=== PATIENT | female | born 1960 | race Caucasian/White ===

== ENCOUNTER 2017-04-23 08:30 | Inpatient (IN) ==
[2017-04-18 15:15] LABS: Blood Urea Nitrogen 19 mg/dl (6-20)
[2017-04-18 15:26] LABS: Basophils # (Auto) 0.1 K/mcL (0.0-0.3); Basophils % (Auto) 0.4 % (0.0-2.0); Eosinophils # (Auto) 0.5 K/mcL (0.0-0.7); Eosinophils % (Auto) 4.2 % (0.0-7.0); Granulocytes % (Auto) 68.2 % (38.0-78.0); Lymphocytes # (Auto) 2.7 K/mcL (1.5-4.8); Lymphocytes % (Auto) 21.2 % (15.5-49.0); Mean Cell Volume 86.1 fL (80.0-100.0); Mean Corpuscular HGB Conc 33.4 g/dL (31.0-36.0); Mean Corpuscular Hemoglobin 28.7 pg (26.0-34.0); Monocytes # (Auto) 0.8 K/mcL (0.1-0.9); RBC 4.48 M/mcL (4.00-5.20); Red Cell Distribution Width 15.2 % (11.5-14.5)
[2017-04-18 15:40] LABS: Appearance,Urine CLEAR; Bilirubin,Urine NEG (NEG); Color,Urine YELLOW; Glucose,Urine (UA) NEGATIVE (NEG); Leukocyte Esterase,Urine NEG /uL (NEG); Nitrate,Urine NEG (NEG); Protein,Urine NEG (NEG); Specific Gravity,Urine 1.012 (1.000-1.035); Urine Blood NEG mg/dL (<0.03)
[~2017-04-23 08:30] MED LIST: KETOROLAC 30 MG, ROPIVACAINE HCL/PF 49.5 ML, EPINEPHrine 0.5 MG, 0.9 % SODIUM CHLORIDE ... IJ ONE; PREGABALIN 75 MG CAPSULE PO SCH; ceFAZolin 1 GM VIAL IV SCH; oxyCODONE 10 MG TAB.ER.12H PO SCH
[2017-04-23 11:37] LABS: C-Reactive Protein 0.3 mg/dl (0.0-0.8)
[2017-04-23] MEDS ORDERED: IPRATROPIUM/ALBUTEROL 3 ML AMPUL.NEB NEB ONE ×2 (13:26→13:47)
[2017-04-23] MEDS ORDERED: KETOROLAC 30 MG, ROPIVACAINE HCL/PF 49.5 ML, EPINEPHrine 0.5 MG, 0.9 % SODIUM CHLORIDE ... IJ ONE (14:04)
[2017-04-23] MEDS ORDERED: ROPIVACAINE HCL/PF 20 ML VIAL IJ ONE (14:25)
[2017-04-23] MEDS ORDERED: LIDOCAINE HCL/PF 100 MG/5 ML SYRINGE IV ONE (14:25)
[2017-04-23] MEDS ORDERED: ONDANSETRON 4 MG/2 ML VIAL IV ONE (14:25)
[2017-04-23] MEDS ORDERED: TRANEXAMIC ACID 1,000 MG/10 ML VIAL IV ONE (14:25)
[2017-04-23] MEDS ORDERED: DEXAMETHASONE 10 MG/ML VIAL IV ONE (14:25)
[2017-04-23] MEDS ORDERED: PHENYLEPHRINE 10 MG/ML VIAL IV ONE (14:25)
[2017-04-23] MEDS ORDERED: MIDAZOLAM 2 MG/2 ML VIAL IV ONE (14:25)
[2017-04-23] MEDS ORDERED: PROPOFOL 200 MG/20 ML VIAL IV ONE (14:25)
[2017-04-23] MEDS ORDERED: diphenhydrAMINE 50 MG/ML VIAL IV PRN (16:04)
[2017-04-23] MEDS ORDERED: ACETAMINOPHEN 1,000 MG/100 ML BOTTLE IV ONE (16:04)
[2017-04-23] MEDS ORDERED: IPRATROPIUM/ALBUTEROL 3 ML AMPUL.NEB NEB PRN ×2 (16:04→16:17)
[2017-04-23] MEDS ORDERED: fentaNYL 100 MCG/2 ML VIAL IV PRN (16:04)
[2017-04-23] MEDS ORDERED: MEPERIDINE 50 MG/ML SYRINGE IM PRN (16:04)
[2017-04-23] MEDS ORDERED: PROMETHAZINE 25 MG/ML VIAL IV PRN (16:04)
[2017-04-23] MEDS ORDERED: BENZOCAINE/MENTHOL 1 LOZENGE PO PRN ×2 (16:04→16:12)
[2017-04-23] MEDS ORDERED: ONDANSETRON 4 MG/2 ML VIAL IV PRN ×2 (16:04→16:12)
[2017-04-23] MEDS ORDERED: PROMETHAZINE 25 MG/ML VIAL IM PRN (16:04)
[2017-04-23] MEDS ORDERED: NALOXONE HCL 0.4 MG/ML VIAL IV PRN (16:04)
[2017-04-23] MEDS ORDERED: METHOCARBAMOL 1,000 MG/10 ML VIAL IV PRN (16:04)
[2017-04-23] MEDS ORDERED: MEPERIDINE 25 MG/ML SYRINGE IV PRN (16:04)
[2017-04-23] MEDS ORDERED: FLUMAZENIL 0.1 MG/ML ML IV PRN (16:04)
[2017-04-23] MEDS ORDERED: LACTATED RINGERS 250 ML IV PRN (16:04)
[2017-04-23] MEDS ORDERED: ePHEDrine 50 MG/ML AMPUL IV PRN (16:04)
[2017-04-23] MEDS ORDERED: HYDROmorphone 2 MG/ML SYRINGE IV PRN (16:12)
[2017-04-23] MEDS ORDERED: POLYETHYLENE GLYCOL 3350 17 GM PACKET PO PRN (16:12)
[2017-04-23] MEDS ORDERED: ACETAMINOPHEN 325 MG TABLET PO PRN (16:12)
[2017-04-23] MEDS ORDERED: BISACODYL 10 MG SUPP.RECT PR PRN (16:12)
[2017-04-23] MEDS ORDERED: MAGNESIUM HYDROXIDE 30 ML ORAL.SUSP PO PRN (16:12)
[2017-04-23] MEDS ORDERED: FLEETS ADULT ENEMA PR PRN (16:12)
[2017-04-23] MEDS ORDERED: TRANEXAMIC ACID 1,000 MG/10 ML VIAL IV SCH (16:12)
--- NOTE | 2017-04-23 16:12 | Brief Operative Note ---
Date of procedure: 04/23/17 Pre-op diagnosis: Left knee loose tibial baseplate Post-op diagnosis: same (plus instability) Procedure: Revision Left total knee arthroplasty, tibial component only Grafts/Implants: Yes (2 tibia, 11 x 120 stem, 16 CS insert) Anesthesia: spinal, GLMA Findings: midflexion instability, partial loosening of tibia Complications: none Surgeon: Nazario Carter Backup Administrator: Emil Abreu Estimated blood loss (cc): 30 Specimens Removed/Pathology: other (c&s x 2, rapid frozen) Condition: stable Disposition: PACU
[2017-04-23] MEDS ORDERED: LACTATED RINGERS 1,000 ML IV SCH (16:15)
[2017-04-23] MEDS ORDERED: ALBUTEROL SULFATE 1 PUFF INHALER INH PRN (16:17)
[2017-04-23] MEDS ORDERED: POLYVINYL ALCOHOL OPHTH DROPS 15ML BOTTLE OU PRN (16:31)
[2017-04-23] MEDS: 0.9 % SODIUM CHLORIDE 1,000 ML IV SCH (16:47)
--- NOTE | 2017-04-23 17:15 | XRay Report ---
CLINICAL INFORMATION: Revision of left total knee arthroplasty TECHNIQUE: AP, lateral, patellar views COMPARISON: Previous examination dated 04/10/2016 FINDINGS: Status post revision of left total knee arthroplasty. Tibial complements has been revised denies a longer stem. Alignment is anatomic. IMPRESSION: Status post revision of left total knee arthroplasty. Interpreted and Authenticated by: Spencer Yanes 04/23/17
[2017-04-23] MEDS ORDERED: SIMETHICONE 80 MG TAB.CHEW CHEWED PRN (18:00)
[2017-04-23] MEDS: KETOROLAC 30 MG/ML VIAL IV SCH ×2 (18:58→23:34)
[2017-04-23] MEDS ORDERED: PRAMIPEXOLE 1 MG TABLET PO PRN (21:00)
[2017-04-23] MEDS: SPIRONOLACTONE 25 MG TABLET PO SCH (21:05)
[2017-04-23] MEDS: traZODone HCL 50 MG TABLET PO SCH (21:06)
[2017-04-23] MEDS: DOCUSATE SODIUM 100 MG CAPSULE PO SCH (21:06)
[2017-04-23] MEDS: SENNOSIDES 1 TABLET PO SCH (21:06)
[2017-04-23] MEDS: busPIRone 5 MG TABLET PO SCH (21:06)
[2017-04-23] MEDS: DICYCLOMINE 20 MG TABLET PO SCH (21:06)
[2017-04-23] MEDS: ASPIRIN 325 MG ENTERIC COATED TABLET PO SCH (21:07)
[2017-04-23] MEDS: DULoxetine 30 MG CAPSULE PO SCH (21:07)
[2017-04-23] MEDS: SIMVASTATIN 40 MG TABLET PO SCH (21:08)
[2017-04-23] MEDS: LITHIUM CARBONATE 150 MG CAPSULE PO SCH (21:08)
[2017-04-23] MEDS: Budesonide/Formoterol Fumarate [Symbicort 160-4.5 MCG] Inhaler INH SCH (21:09)
[2017-04-23] MEDS: 0.9 % SODIUM CHLORIDE 10 ML SYRINGE IV SCH (21:15)
[2017-04-23] MEDS: PANTOPRAZOLE 40 MG TABLET PO SCH (21:21)
[2017-04-23] MEDS: ceFAZolin 1 GM VIAL IV SCH (22:50)
[2017-04-24] MEDS: 0.9 % SODIUM CHLORIDE 1,000 ML IV SCH ×3 (00:42→21:36)
[2017-04-24] MEDS: oxyCODONE/APAP 5/325MG TABLET PO PRN ×6 (02:59→22:38)
[2017-04-24] MEDS: CYCLOBENZAPRINE 10 MG TABLET PO PRN (02:59)
[2017-04-24] MEDS: KETOROLAC 30 MG/ML VIAL IV SCH ×3 (05:33→17:29)
[2017-04-24] MEDS: 0.9 % SODIUM CHLORIDE 10 ML SYRINGE IV SCH ×3 (05:34→21:43)
[2017-04-24] MEDS: ceFAZolin 1 GM VIAL IV SCH (05:37)
[2017-04-24] MEDS: PANTOPRAZOLE 40 MG TABLET PO SCH ×2 (07:25→17:30)
[2017-04-24] MEDS: LEVOTHYROXINE 100 MCG TABLET PO SCH (07:25)
--- NOTE | 2017-04-24 07:51 | Discharge Summary ---
Providers - Providers Patient information: Note initiated : 04/24/17 at 7:46 am Service Date, if different from initiated Date: [] Patient: Saundra Cardona 57 y/o F admitted on 04/23/17 for Left Knee Removal of Tibial Component vs Total . Chief Complaint: [] Discharge date: 04/24/17 Hospitalization Hospital course: Pt underwent a L total knee arthroplasty revison for continued pain s/p TKA. she sepent one night on the floor for IV pain meds, IV abx and PT. Discharge diagnosis: L knee pain Exam - Exam Clean and dry: Yes Weight bearing status: as tolerated Ortho Discharge - TKA - Patient Instructions Diet: Regular Diet Activity: activity as tolerated, weight bearing as tolerated Total Knee Protocol: For Total Knee: Start ROM SNOW with stationary bike or rocking chair. Work on gaining full extension of knee. Posterior dislocation precautions provided. Hip abductor strengthening and gait training instructions provided. Apply Cryocuff as instructed. Dressing Care: May shower in 2 days Patient Education: Revision Total Joint Arthroplasty (DC) Additional Instructions: Discharge Instructions: Do the exercises at home that physical therapy gave you. You are scheduled to start physical therapy at [facility] ([phone]) on Apr. Take your prescription, photo ID, insurance cards, and current medication list with you to your first physical therapy appointment. Take your prescription to bead picker any medication or equipment (such as walker, crutches, toilet riser or C.P.M.) Wear comfortable clothing for your physical therapy (please bring/wear shorts. Weight bearing as tolerated. You have the Aquacel Ag dressing, leave in place for 7 days then remove. If dressing becomes soiled (turns black), remove and use gauze 4x4 dressing and silvasorb ointment and change daily. Keep incision clean and dry. You may start showering on post op day #2. To avoid constipation while taking any narcotic pain medication, take an over the counter stool softener/laxative. Use your Cryocuff or ice packs as directed, on for 20 minutes at a time throughout the day. This and elevation will help with pain and swelling. Call your physician for fevers above 100.5 or pain not controlled by medication. Your prescriptions are with your discharge information. Some medications were electronically transmitted to your pharmacy of choice. - Follow Up Plan Follow Up Appointments: Nazario Carter MD [Physician] - 05/08/17 8:40 am Disposition: Home, Self-Care Prognosis: Good Rehab Potential: Good Overall status at discharge: patient is progressing back to baseline - Orders For Discharge Prescriptions: Aspirin 325 mg PO BID #30 tab HYDROcodone/ACETAMINOPHEN [[place] 10-325 Tablet] 1 - 2 each PO Q4 #90 tab Pending Studies Resuscitation Status Full Code Diet Regular Diet Start FriApr 23 Breakfast Aspirin (Ecotrin) 325 mg PO BID [facility] Last Admin: 04/23/17 21:07 Dose: 325 mg Buspirone HCl (Buspar) 15 mg PO BID [facility] Last Admin: 04/23/17 21:06 Dose: 15 mg Cyclobenzaprine HCl (Flexeril) 10 mg PO BIDP PRN PRN Reason: Spasms Last Admin: 04/24/17 02:59 Dose: 10 mg Dicyclomine HCl (Dicyclomine) 20 mg PO BID [facility] Last Admin: 04/23/17 21:06 Dose: 20 mg Docusate Sodium (Colace) 100 mg PO BID [facility] Last Admin: 04/23/17 21:06 Dose: 100 mg Duloxetine HCl (Cymbalta) 60 mg PO BID [facility] Last Admin: 04/23/17 21:07 Dose: 60 mg Hydromorphone HCl (Dilaudid) 0 mg IV Q2HP PRN PRN Reason: PAIN LEVEL > 6 Last Admin: 04/23/17 20:49 Dose: 0.5 mg Sodium Chloride (Sodium Chloride 0.9%) 1,000 mls @ 100 mls/hr IV .Q10H [facility] Last Admin: 04/24/17 00:42 Dose: 100 mls/hr Infusion: 04/24/17 00:42 Dose: 100 mls/hr Admin: 04/23/17 16:47 Dose: 100 mls/hr Ketorolac Tromethamine (Toradol) 30 mg IV Q6 [facility] Stop: 04/25/17 12:01 Last Admin: 04/24/17 05:33 Dose: 30 mg Admin: 04/23/17 23:34 Dose: 30 mg Admin: 04/23/17 18:58 Dose: 30 mg Levothyroxine Sodium (Synthroid) 200 mcg PO ACB [facility] Last Admin: 04/24/17 07:25 Dose: 200 mcg [place] Carbonate ([place] Carbonate) 600 mg PO [facility] Last Admin: 04/23/17 21:08 Dose: 600 mg Oxycodone/Acetaminophen (Percocet 5-325 Mg) 0 tab PO Q4HP PRN PRN Reason: PAIN LEVEL 3-6 Last Admin: 04/24/17 02:59 Dose: 2 tab [facility]oprazole [facility]) [facility] Last Admin: 04/24/17 07:25 Dose: 40 mg Admin: 04/23/17 21:21 Dose: 40 mg Budesonide/Formoterol Fumarate [Symbicort 160-4.5 Mcg] Inhaler 1 dose INH BID [facility] Last Admin: 04/23/17 21:09 Dose: Not Given Senna (Senokot) 2 tab PO [facility] Last Admin: 04/23/17 21:06 Dose: 2 tab Simvastatin (Zocor) 40 mg PO [facility] Last Admin: 04/23/17 21:08 Dose: 40 mg Sodium Chloride (Saline Flush) 10 ml IV Q8 [facility] Last Admin: 04/24/17 05:34 Dose: Not Given Admin: 04/23/17 21:15 Dose: Not Given Spironolactone (Aldactone) 25 mg PO [facility] Last Admin: 04/23/17 21:05 Dose: Not Given Trazodone HCl (Desyrel) 100 mg PO [facility] Last Admin: 04/23/17 21:06 Dose: 100 mg Shift Summary 04/24/17 04:47 Shift Summary by Yulia Masters&Brenton4. VSS, but weaning off supplemental O2 was unsuccessful. Patient is on 2L O2 via NC. Dressing in place to surgical site to left knee and is CDI. 18 gauge to LFA with NS at 100 ml/hr. Up with FWW and SBA. Had one episode of incontinence while block was still in effect, but since has been continent and up to bathroom to void. PVR was 36ml. Administered 2 tablets Percocet 5/325mg and 1 tablet Flexeril 10mg for pain and restless leg spasms at 0300. Will update at bedside. Initialized on 04/24/17 04:47 - END OF NOTE
[2017-04-24] MEDS: DULoxetine 30 MG CAPSULE PO SCH ×2 (08:27→20:11)
[2017-04-24] MEDS: ATENOLOL 50 MG TABLET PO SCH (08:28)
[2017-04-24] MEDS: MULTIVIT,THER IRON,CA,FA & MIN 1 TABLET PO SCH (08:28)
[2017-04-24] MEDS: ASPIRIN 325 MG ENTERIC COATED TABLET PO SCH ×2 (08:28→20:14)
[2017-04-24] MEDS: DICYCLOMINE 20 MG TABLET PO SCH ×2 (08:28→20:14)
[2017-04-24] MEDS: DOCUSATE SODIUM 100 MG CAPSULE PO SCH ×2 (08:28→20:14)
[2017-04-24] MEDS: LITHIUM CARBONATE 150 MG CAPSULE PO SCH ×2 (08:28→20:14)
[2017-04-24] MEDS: VITAMIN D3 5,000 UNIT CAPSULE PO SCH (08:28)
[2017-04-24] MEDS: busPIRone 5 MG TABLET PO SCH ×2 (08:28→20:12)
[2017-04-24] MEDS: COLESTIPOLL 1 GM TABLET PO SCH (08:30)
[2017-04-24] MEDS: Budesonide/Formoterol Fumarate [Symbicort 160-4.5 MCG] Inhaler INH SCH ×2 (08:31→20:17)
--- NOTE | 2017-04-24 09:06 | Operative Note ---
DATE OF OPERATION: 04/23/2017 PREOPERATIVE DIAGNOSIS: Painful left total knee arthroplasty with probable tibial component loosening. POSTOPERATIVE DIAGNOSES: 1. Painful left total knee arthroplasty with probable tibial component loosening. 2. Ligamentous laxity with mid flexion instability. PROCEDURE PERFORMED: Revision left total knee arthroplasty of the tibial component only removing her tibia and insert and placing a size 2 baseplate with an 11 mm 100 length stem and a 16 mm CS tibial insert. SURGEON: Nazario Carter M.D. CLIENT CONSULTANT: Emiliano Abreu PA-C. ANESTHESIA: Spinal plus general. DRAINS: None. SPECIMENS REMOVED: Tibial insert and tibial component, culture and sensitivity x2, as well as synovial tissue sent for rapid frozen. BLOOD LOSS: 30 mL. COMPLICATIONS: None. POSTOPERATIVE CONDITION: Stable. INDICATIONS FOR SURGERY: This is a 57-year-old female who approximately a year ago had undergone a total knee arthroplasty. She had initially done okay. However, after several months began having gradually worsening knee pain. Her radiographs showed what appeared to be radiolucency around the tibial component. Infection workup preoperatively had been negative. FINDINGS AT SURGERY: The synovial fluid looked normal. There was fairly severe ligamentous laxity, however, most notable on mid flexion. She had some loosening of the tibia around the medial and lateral sides. The femur was without evidence of loosening. Post implantation showed good stability and range of motion. PROCEDURE IN DETAIL: The patient had been seen preoperatively. Informed consent had been obtained after discussion of risks and benefits of surgery. Risks including, but not limited to, bleeding, possibly requiring transfusion; infection, possibly requiring implant removal, prolonged IV antibiotics; injury to nerves, blood vessels, and other surrounding structures; anesthetic risks; incomplete or no resolution of symptoms; stiffness; pain; instability; swelling; DVT and pulmonary embolus risks; and the possibility of needing further revision surgery. She understood these risks and wished to proceed. Correct operative site was marked in preoperative holding and patient received spinal anesthesia. She was then taken to the operating room and LMA general given. The left lower extremity was carefully prepped and draped in normal sterile fashion, and a time-out was performed verifying patient name, operative site, and plan. Her previous scar was used, and a midline incision was made with scalpel through skin and subcutaneous tissue. Irrisept was irrigated and then a medial parapatellar arthrotomy made. Two culture swabs were taken of the fluid. However, it grossly looked normal. Subperiosteal exposure was done of the anterior medial tibia, and we noted at this point that she had fairly gross laxity with drawer testing. We went ahead and removed retropatellar scar tissue and then removed her tibial insert. We closely inspected the femur. There was no evidence of loosening at the cement bone interface. We inspected the tibia, and along the medial edge there did appear to be some loosening of the tibia, although the central portion did not appear to be loose. Due to her radiograph and the findings medially, we felt it would be best to go ahead and remove the tibia, so a flexible osteotome was used around the tibia as much as possible and then we also hooked a tibial Slap hammer and were able to backslap the tibia off. Inspection did reveal intact fixation of the tibia centrally with what appeared to be some loosening medial and lateral. We then carefully removed cement. We reamed up to a size 11. We then did a freshening cut removing 2 or 3 mm of bone off the tibia. We then determined that 2 mm offset was needed to central the position of the tibial baseplate with the offset pushing the tibial base plate laterally. Once we had boss reamed and keel punched. We then placed the trial. We trialed a 13 insert. This seemed too loose. We went up to a 16 insert, and this gave us good stability and still good range of motion, so we went ahead and removed the implants. Definitive implants were opened and constructed. We irrigated the joint with Irrisept. After a minute we copiously pulse lavaged while antibiotic cement was mixed. Cement was placed around the tibial tray only, leaving the intramedullary glendy portion uncemented, and then this was impacted. Excess cement removed. A 16 trial insert was placed. The knee was taken into extension. Excess cement was removed, and we filled the joint with Irrisept. After several minutes we pulse lavaged until cement had fully hardened. We then opened a 16 CS insert and removed the trial insert. Irrisept was irrigated into the tray and then the insert was impacted. The final pulse lavage with saline was done and then the knee was placed in about 45 degrees of flexion. A #2 FiberWire interrupted [id number] was used around the superior quadrant of the patella, #1 Vicryl [id number] around the inferior quadrant, running #1 Vicryl for patellar tendon and quad tendon. Final Irrisept irrigation was done and after a minute final pulse lavage, and then 2-0 Monocryl used for subcutaneous and nory for skin. Xeroform and sterile dressing were applied. Tourniquet was released. The patient was awakened, extubated, and transferred to recovery in stable condition. BJB:margy Job ID: [id number] Doc ID: [id number] Nazario Carter MD
--- NOTE | 2017-04-24 13:28 | Surgical Pathology Report ---
HISTOLOGY SPECIMEN MICROSCOPIC DIAGNOSIS SYNOVIUM, LEFT KNEE POSTERIOR CAPSULE, BIOPSY: -- SYNOVIAL HYPERPLASIA WITH MILD FIBROSIS AND MINIMAL CHRONIC INFLAMMATION. -- NO SIGNIFICANT ACUTE INFLAMMATION IDENTIFIED. (RLF:sln) INTRAOPERATIVE CONSULTATION FROZEN SECTION DIAGNOSIS (Performed at [facility], [place], [place]) FSA - SYNOVIUM, LEFT KNEE POSTERIOR CAPSULE, BIOPSY: -- 0-1 NEUTROPHILS/hpf. (RLF:sln) CLINICAL HISTORY Pain in left knee, 1 year post total knee replacement. GROSS DESCRIPTION Received fresh for intraoperative consultation, labeled synovium from posterior capsule on the requisition and with the patient name on the container, is a segment of young-pink rubbery soft tissue measuring 2.2 x 1.2 x 0.8 cm. Frozen section is performed. [employer]cal Services Director sections in one cassette for frozen section control. (RLF:djf) Electronically Signed by: Judy Gaming M.D.
[2017-04-24] MEDS ORDERED: COLESTIPOLL 1 GM TABLET PO SCH (16:00)
[2017-04-24] MEDS: traZODone HCL 50 MG TABLET PO SCH (20:10)
[2017-04-24] MEDS: SPIRONOLACTONE 25 MG TABLET PO SCH (20:12)
[2017-04-24] MEDS: SENNOSIDES 1 TABLET PO SCH (20:13)
[2017-04-24] MEDS: SIMVASTATIN 40 MG TABLET PO SCH (20:16)
[2017-04-25] MEDS: KETOROLAC 30 MG/ML VIAL IV SCH ×3 (00:57→11:52)
[2017-04-25] MEDS: oxyCODONE/APAP 5/325MG TABLET PO PRN ×2 (03:34→09:31)
[2017-04-25] MEDS: CYCLOBENZAPRINE 10 MG TABLET PO PRN (03:35)
[2017-04-25] MEDS: 0.9 % SODIUM CHLORIDE 10 ML SYRINGE IV SCH (06:08)
[2017-04-25] MEDS: LEVOTHYROXINE 100 MCG TABLET PO SCH (09:34)
[2017-04-25] MEDS: PANTOPRAZOLE 40 MG TABLET PO SCH (09:34)
[2017-04-25] MEDS: 0.9 % SODIUM CHLORIDE 1,000 ML IV SCH (09:35)
[2017-04-25] MEDS: ATENOLOL 50 MG TABLET PO SCH (10:58)
[2017-04-25] MEDS: VITAMIN D3 5,000 UNIT CAPSULE PO SCH (10:58)
[2017-04-25] MEDS: DOCUSATE SODIUM 100 MG CAPSULE PO SCH (10:58)
[2017-04-25] MEDS: ASPIRIN 325 MG ENTERIC COATED TABLET PO SCH (10:58)
[2017-04-25] MEDS: busPIRone 5 MG TABLET PO SCH (10:59)
[2017-04-25] MEDS: DULoxetine 30 MG CAPSULE PO SCH (10:59)
[2017-04-25] MEDS: COLESTIPOLL 1 GM TABLET PO SCH (10:59)
[2017-04-25] MEDS: DICYCLOMINE 20 MG TABLET PO SCH (10:59)
[2017-04-25] MEDS: MULTIVIT,THER IRON,CA,FA & MIN 1 TABLET PO SCH (11:00)
[2017-04-25] MEDS: Budesonide/Formoterol Fumarate [Symbicort 160-4.5 MCG] Inhaler INH SCH (11:07)
[2017-04-25] MEDS: LITHIUM CARBONATE 150 MG CAPSULE PO SCH (11:07)
--- NOTE | 2017-04-25 11:51 | Orthopedic Progress Note ---
Orthopedics - Auxillary Note - Subjective Patient Information: Note initiated : 04/25/17 at 11:50 am Service Date, if different from initiated Date: [] Patient: Saundra Cardona 57 y/o F admitted on 04/23/17 for Left Knee Removal of Tibial Component vs Total . Chief Complaint: Mild to moderate pain. bandages c/d/i nvi-distal Vital Signs Temp Pulse Resp BP BP Pulse Ox 04/25/17 11:44 97.8 F 18 136/75 90 04/25/17 08:00 80 04/25/17 06:54 97 F 18 126/72 90 04/25/17 04:00 98.5 F 80 20 135/73 93 04/25/17 00:00 98.6 F 80 20 118/76 91 04/24/17 20:00 97.0 F 79 20 118/77 92 04/24/17 16:00 97.5 F 18 129/75 93 04/24/17 11:56 98.2 F 18 112/57 93 Intake and Output 04/24/17 04/25/17 04/25/17 21:59 05:59 13:59 Intake Total 400 / 400 800 / 800 320 / 320 Output Total 500 / 500 400 / 400 400 / 400 Balance -100 / -100 400 / 400 -80 / -80 Intake: Oral 400 / 400 800 / 800 320 / 320 Output: Void Amount 500 / 500 400 / 400 400 / 400 Other: Meal Dinner Breakfast Percent of Meal Consumed 100% 100% Feeding Ability Independent # Voids 2 1 Weight 232 lb Laboratory Results - last 24 hr 04/25/17 04:25 Hgb 10.3 L Hct 31.2 L s/p L [id number] discharge with Home Health today
[2017-04-27] MEDS ORDERED: ESTRADIOL TD SCH (09:00)
== END 2017-04-25 12:30 | disposition home or self-care (01) | DRG 467 ==
LOC: MEDSUR 09:57
PROVIDERS: ADMIT Orthopaedic Surgery; ATTEND Orthopaedic Surgery

== ENCOUNTER 2017-09-19 07:14 | Inpatient (IN) ==
[2017-09-19] MEDS ORDERED: IOPAMIDOL 100 ML BOTTLE IV ONE (07:15)
[2017-09-19] MEDS ORDERED: IPRATROPIUM/ALBUTEROL 3 ML AMPUL.NEB NEB ONE (07:33)
[2017-09-19] MEDS ORDERED: 0.9 % SODIUM CHLORIDE 1,000 ML IV ONE (07:33)
--- NOTE | 2017-09-19 07:38 | Emergency Department Note ---
General Adult HPI - General Chief complaint: Cold/Flu Symptoms Stated complaint: Cold/flu Time Seen by Provider: 09/19/17 07:22 Source: patient Mode of arrival: ambulatory Limitations: no limitations - History of Present Illness HPI Narrative: 57-year-old female with shortness of breath since yesterday. She notes having a history of COPD and asthma. No fever but she is chilled and diaphoretic. No nausea vomiting or diarrhea. She had an episode of hemoptysis yesterday as well which has not continued to today. Denies TB exposure. - Related Data Home Medications Medication Instructions Recorded Confirmed Albuterol Sulfate [Ventolin] 1 puff INH Q4HP PRN 03/10/17 04/18/17 Atenolol [Tenormin] 50 mg PO DAILY 03/10/17 04/23/17 Budesonide/Formoterol Fumarate 1 puff INH BID 03/10/17 04/18/17 [Symbicort 160-4.5 Mcg Inhaler] Colestipoll [Colestid] 3 gm PO DAILY@1600 03/10/17 04/23/17 Colestipoll [Colestid] 4 gm PO DAILY 03/10/17 04/23/17 Cyclobenzaprine [Flexeril] 10 mg PO BIDP PRN 03/10/17 04/23/17 DULoxetine HCL [Cymbalta] 60 mg PO BID 03/10/17 04/23/17 Dicyclomine 20 mg PO BID 03/10/17 04/23/17 Estradiol [Alina] 1 each TD STEWART@0900 03/10/17 04/23/17 Etodolac [Lodine] 400 mg PO BID 03/10/17 04/23/17 [place] Carbonate [Lithobid] 300 mg PO DAILY 03/10/17 04/23/17 [place] Carbonate [Lithobid] 600 mg PO HS 03/10/17 04/23/17 Polyvinyl Alcohol/Povidone/Pf 1 drop OU DAILYP PRN 03/10/17 04/23/17 [Refresh Classic Eye Drops] Pramipexole [Mirapex] 0.5 mg PO HSP PRN 03/10/17 04/23/17 Rosuvastatin Calcium [Crestor] 40 mg PO HS 03/10/17 04/23/17 busPIRone [Buspar] 15 mg PO BID 03/10/17 04/23/17 Pantoprazole [Protonix] 40 mg PO BID 03/15/17 04/23/17 Ipratropium/Albuterol [Duoneb] 3 ml NEB TIDP PRN 04/18/17 04/18/17 Levothyroxine [Synthroid] 200 mcg PO ACB 04/18/17 04/23/17 Multivit,Ther Iron,Ca,FA & Min 1 tab PO DAILY 04/18/17 04/23/17 [Multivitamin W/Minerals] Simethicone [Anti-Gas] 180 mg PO BID PRN 04/18/17 04/23/17 Spironolactone [Aldactone] 25 mg PO HS 04/18/17 04/23/17 Vitamin D3 5,000 unit PO DAILY 04/18/17 04/18/17 traZODone HCL [Trazodone HCl] 100 mg PO HS 04/18/17 04/18/17 Previous Rx's Medication Instructions Recorded Aspirin 325 mg PO BID #30 tab 04/24/17 traMADol [Ultram] 50 - 100 mg PO Q4-6HP PRN #100 tab 04/25/17 traMADol [Ultram] 50 - 100 mg PO Q4-6HP PRN #20 tab 08/16/17 Allergies Allergy/AdvReac Type Severity Reaction Status Date / Time fexofenadine [From KAREL] Allergy Intermediate RASH Verified 09/19/17 07:15 rofecoxib [From VIOXX] Allergy Intermediate RASH Verified 09/19/17 07:15 NARCOTICS AdvReac Mild HALLUCINATE Uncoded 04/04/16 11:34 Review of Systems All systems ED: reviewed and negative except as stated. Past Medical History - Past Medical History Attestation: Yes: The following information was validated with the patient. Medical history: Reports: asthma, COPD, GERD, hyperlipidemia, hypertension, hypothyroidism, obesity, other (Pneumonia.). Denies: DM, myocardial infarction Psychiatric history: Reports: anxiety, depression Surgical history ED: Reports: appendectomy, cholecystectomy, herniorrhaphy, hysterectomy, knee replacement, orthopedic, other (rotator cuff), sinus surgery - Social History smoking status: Former smoker Alcohol use: Reports: Rarely Drug use: Reports: none Physical Exam Overweight female in some distress secondary to shortness of breath. Diaphoretic. Normocephalic atraumatic. Conjunctive are clear sclerae nonicteric. No nasal discharge or congestion. Oropharynx pink and moist. Neck is supple without lymphadenopathy thyromegaly. Heart is regular rate and rhythm no murmur appreciated. Lungs are clear to auscultation bilaterally with end expiratory wheezes and rhonchi. No rales. Abdomen soft nontender nondistended. +1 pedal edema bilaterally. Alert oriented Limitations: no limitations Course Vital Signs Temperature 97.2 F 09/19/17 07:15 Pulse Rate 96 H 09/19/17 07:15 Respiratory Rate 22 09/19/17 07:15 Blood Pressure 156/93 09/19/17 07:15 Pulse Oximetry (%) 100 09/19/17 07:15 Temperature 97.2 F 09/19/17 07:15 Pulse Rate 82 09/19/17 09:10 Respiratory Rate 18 09/19/17 09:10 Blood Pressure 110/72 09/19/17 09:03 Pulse Oximetry (%) 100 09/19/17 09:10 Medical Decision Making - Medical Records Medical records reviewed: Yes I reviewed the patient's medical records. - Lab Data Lab results reviewed: Yes I reviewed the patient's lab results. Result diagrams: 09/19/17 07:45 09/19/17 07:45 Lab Results 09/19/17 09/19/17 09/19/17 Range/Units 07:45 07:45 07:45 WBC 15.9 H (4.5-11.0) K/mcL RBC 4.28 (4.00-5.20) M/mcL Hgb 11.9 L (12.0-15.0) g/dL Hct 35.4 L (36.0-48.0) % POC Hct 34.0 L (36.0-48.0) % MCV 82.7 (80.0-100.0) fL MCH 27.7 (26.0-34.0) pg MCHC 33.5 (31.0-36.0) g/dL RDW 16.1 H (11.5-14.5) % Plt Count 274 (140-440) K/mcL MPV 7.3 L (7.4-10.4) fL Gran % 76.5 (38.0-78.0) % Lymph % (Auto) 13.8 L (15.5-49.0) % Pender % (Auto) 7.3 (1.0-12.0) % Eos % (Auto) 2.2 (0.0-7.0) % Baso % (Auto) 0.2 (0.0-2.0) % Gran # 12.2 H (1.8-8.0) K/mcL Lymph # (Auto) 2.2 (1.5-4.8) K/mcL Pender # (Auto) 1.2 H (0.1-0.9) K/mcL Eos # (Auto) 0.3 (0.0-0.7) K/mcL Baso # (Auto) 0 (0.0-0.3) K/mcL VBG Lactic Acid 0.9 (0.5-2.2) mmol/L POC Sodium 140 (133-145) mmol/L Sodium 141 (133-145) mmol/L POC Potassium 3.4 (3.3-5.1) mmol/L Potassium 3.5 (3.3-5.1) mmol/L POC Chloride 102 (96-108) mmol/L Chloride 102 (96-108) mmol/L Carbon Dioxide 28 (22-30) mmol/L POC Total CO2 28 (22-30) mmol/L Anion Gap 11.0 (8-16) POC BUN 16 (6-20) mg/dl BUN 15 (6-20) mg/dl Creatinine 0.7 (0.6-1.1) mg/dl POC Creatinine 0.7 (0.6-1.1) mg/dl GFR Calculation 95 Glucose 120 H (70-105) mg/dL POC Glucose 119 H (70-105) mg/dL Calcium 9.0 (8.6-10.4) mg/dl POC WB Ioniz Calcium 1.15 L (1.16-1.32) mmol/L Total Bilirubin 0.5 (0.0-1.0) mg/dL AST 25 (0-37) U/l ALT 32 (0-40) U/l Alkaline Phosphatase 133 H (39-117) U/L Troponin T (0-0.03) ng/ml NT-Pro-B Natriuret Pep 94.5 (0-125) pg/ml Total Protein 7.0 (5.9-8.4) gm/dL Albumin 4.1 (3.2-5.2) gm/dL Globulin 2.9 (2.2-3.7) gm/dL Albumin/Globulin Ratio 1.4 (1.0-2.3) Urine Color Urine Appearance Urine pH (5.0-9.0) Ur Specific [place] (1.000-1.035) Urine Protein (NEG) mg/dL Urine Glucose (UA) (NEG) mg/dL Urine Ketones (NEG) mg/dL Urine Occult Blood (<0.03) mg/dL Urine Nitrate (NEG) Urine Bilirubin (NEG) mg/dL Urine Urobilinogen (NEG) mg/dL Ur Leukocyte Esterase (NEG) /uL Urine RBC (0-1) /hpf Urine WBC (0-4) /hpf Ur Squamous Epith Cells (0-4) /hpf Urine Bacteria (0) /hpf Urine Mucus (0) /hpf Ur Culture Indicated? Influenza A (Rapid) Influenza B (Rapid) 09/19/17 09/19/17 09/19/17 Range/Units 07:45 07:50 08:37 WBC (4.5-11.0) K/mcL RBC (4.00-5.20) M/mcL Hgb (12.0-15.0) g/dL Hct (36.0-48.0) % POC Hct (36.0-48.0) % MCV (80.0-100.0) fL MCH (26.0-34.0) pg MCHC (31.0-36.0) g/dL RDW (11.5-14.5) % Plt Count (140-440) K/mcL MPV (7.4-10.4) fL Gran % (38.0-78.0) % Lymph % (Auto) (15.5-49.0) % Pender % (Auto) (1.0-12.0) % Eos % (Auto) (0.0-7.0) % Baso % (Auto) (0.0-2.0) % Gran # (1.8-8.0) K/mcL Lymph # (Auto) (1.5-4.8) K/mcL Pender # (Auto) (0.1-0.9) K/mcL Eos # (Auto) (0.0-0.7) K/mcL Baso # (Auto) (0.0-0.3) K/mcL VBG Lactic Acid (0.5-2.2) mmol/L POC Sodium (133-145) mmol/L Sodium (133-145) mmol/L POC Potassium (3.3-5.1) mmol/L Potassium (3.3-5.1) mmol/L POC Chloride (96-108) mmol/L Chloride (96-108) mmol/L Carbon Dioxide (22-30) mmol/L POC Total CO2 (22-30) mmol/L Anion Gap (8-16) POC BUN (6-20) mg/dl BUN (6-20) mg/dl Creatinine (0.6-1.1) mg/dl POC Creatinine (0.6-1.1) mg/dl GFR Calculation Glucose (70-105) mg/dL POC Glucose (70-105) mg/dL Calcium (8.6-10.4) mg/dl POC WB Ioniz Calcium (1.16-1.32) mmol/L Total Bilirubin (0.0-1.0) mg/dL AST (0-37) U/l ALT (0-40) U/l Alkaline Phosphatase (39-117) U/L Troponin T < 0.01 (0-0.03) ng/ml NT-Pro-B Natriuret Pep (0-125) pg/ml Total Protein (5.9-8.4) gm/dL Albumin (3.2-5.2) gm/dL Globulin (2.2-3.7) gm/dL Albumin/Globulin Ratio (1.0-2.3) Urine Color Yellow Urine Appearance Hazy Urine pH 6.0 (5.0-9.0) Ur Specific [place] 1.020 (1.000-1.035) Urine Protein Neg (NEG) mg/dL Urine Glucose (UA) Negative (NEG) mg/dL Urine Ketones Neg (NEG) mg/dL Urine Occult Blood Neg (<0.03) mg/dL Urine Nitrate Neg (NEG) Urine Bilirubin Neg (NEG) mg/dL Urine Urobilinogen Neg (NEG) mg/dL Ur Leukocyte Esterase 25 A (NEG) /uL Urine RBC 1 (0-1) /hpf Urine WBC 4 (0-4) /hpf Ur Squamous Epith Cells 7 H (0-4) /hpf Urine Bacteria 0 (0) /hpf Urine Mucus Few (0) /hpf Ur Culture Indicated? No Influenza A (Rapid) Presumed negative Influenza B (Rapid) Presumed negative - Radiology Data Radiology results reviewed: Yes I reviewed the patient's radiology results. CT scan of the chest with contrast shows possible spots of possible pulmonary hemorrhage - EKG Data EKG #1 EKG attestation: Yes I reviewed and interpreted this EKG. EKG results narrative: EKG shows a rate of 83 normal sinus rhythm without evidence of ischemia Disposition Pt seen by [employer]/PA only: No Clinical Impression: Hemoptysis, COPD exacerbation Summary: After initial interview and exam patient is worked up with laboratory EKG and CT scan of the chest. Normal saline IV fluids and DuoNeb were given Some improvement of breathing with DuoNeb. Labs show significant leukocytosis plus possible spots of pulmonary hemorrhage on CT scan. Discussed case with Dr. Smith-he recommended we cover her for pneumonia. Blood and sputum cultures were ordered and Zosyn. I discussed the case with Dr. Moreno, he will accept patient as hospitalist and Dr. Smith will consult Disposition: Xfer As Inpt ([facility] [place]) Condition: Serious Referrals: Amanda Chavez MD [Primary Care Provider] -
[2017-09-19 08:14] LABS: Basophils # (Auto) 0 K/mcL (0.0-0.3); Basophils % (Auto) 0.2 % (0.0-2.0); Eosinophils # (Auto) 0.3 K/mcL (0.0-0.7); Eosinophils % (Auto) 2.2 % (0.0-7.0); Granulocytes % (Auto) 76.5 % (38.0-78.0); Lymphocytes # (Auto) 2.2 K/mcL (1.5-4.8); Lymphocytes % (Auto) 13.8 % (15.5-49.0); Mean Cell Volume 82.7 fL (80.0-100.0); Mean Corpuscular HGB Conc 33.5 g/dL (31.0-36.0); Mean Corpuscular Hemoglobin 27.7 pg (26.0-34.0); Monocytes # (Auto) 1.2 K/mcL (0.1-0.9); Monocytes % (Auto) 7.3 % (1.0-12.0); Platelet Count 274 K/mcL (140-440); RBC 4.28 M/mcL (4.00-5.20); Red Cell Distribution Width 16.1 % (11.5-14.5)
[2017-09-19 08:37] LABS: ALT/SGPT 32 U/l (0-40); Albumin 4.1 gm/dL (3.2-5.2); Albumin/Globulin Ratio 1.4 (1.0-2.3); Alkaline Phosphatase 133 U/L (39-117); Blood Urea Nitrogen 15 mg/dl (6-20); proBNP 94.5 pg/ml (0-125)
--- NOTE | 2017-09-19 09:05 | Cat Scan Report ---
CLINICAL INFORMATION: Hemoptysis COMPARISON: 06/01/17 TECHNIQUE:100 cc of Optiray 320 were injected intravenously, and 20 seconds later, 2.5 mm helical slices were obtained from the lung apices through the bases. Following reconstruction, 2.5 mm sagittal, coronal and axial reformations were processed. The exam was reviewed at lung, mediastinal and bone window. 7 mm axial MIPS were also obtained FINDINGS: Adjacent to the major fissure, posteriorly in the right upper lobe there is an ill-defined masslike infiltrate which measures approximately 2 x 2.3 cm in size. This was not present on 06/01/17. There is a smaller similar-appearing nodular density medially in the superior segment of lingula which measures 7 x 8 mm. This is present on image #57. There is a stable 3 x 3.5 mm granuloma in the lateral segment right middle lobe. In material in the right upper lobe on image #45 there is a vague 3 mm density which is also new and may be inflammatory. There are couple benign-appearing lymph nodes in the mediastinum. They have remained stable. Heart size is normal. Mild atherosclerotic coronary artery disease is present. No pleural effusion is present. The central pulmonary arteries are normal without evidence of emboli. The trachea and bronchi appear normal. IMPRESSION: Small masslike infiltrate posteriorly in the right upper lobe. This is more likely due to inflammation or pulmonary hemorrhage rather than a rapidly growing malignancy. Collagen vascular disease such as Hemanth's granulomatosis is also a consideration. Small ill-defined densities in the right upper lobe and medially in the superior segment of lingula which are also more likely due to an inflammatory reaction or pulmonary hemorrhage as opposed to malignancy Stable granuloma in the right middle lobe Interpreted and Authenticated by: Rasheed Grier 09/19/17
[2017-09-19 09:15] LABS: Appearance,Urine HAZY; Bacteria,Urine 0 /hpf (0); Bilirubin,Urine NEG (NEG); Color,Urine YELLOW; Glucose,Urine (UA) NEGATIVE (NEG); Leukocyte Esterase,Urine 25 /uL (NEG); Mucus,Urine FEW /hpf (0); Protein,Urine NEG (NEG); Urine Blood NEG mg/dL (<0.03); Urine RBC 1 /hpf (0-1); Urine Squamous Epithelial Cell 7 /hpf (0-4); Urine WBC 4 /hpf (0-4); Urobilinogen,Urine NEG (NEG)
[2017-09-19] MEDS ORDERED: PIPERACILLIN SODIUM/TAZOBACTAM 3.375 GM in DEXTROSE 5% IN WATER 50 ML IV ONE (09:48)
--- NOTE | 2017-09-19 10:20 | Internal Med History&Physical ---
Medical - H&P: HPI Patient information: Note initiated : 09/19/17 at 10:17 am Service Date, if different from initiated Date: [] Patient: Saundra Cardona a 57 y/o F admitted on 09/19/17 for Cold/Flu. Chief Complaint: [] Chief complaint: hemoptysis, SOB History of present illness: Ms. Cardona is a 57 year old F with h/o COPD, anxiety, woke up SOB yesterday morning and srtarted coughing bloody sputum aaround 7:30 in the morning. She had another spell of coughing episode associated with bloody expectorate around 11 AM. over the course of the day patient progressed with worsening shortness of breath. she denied associated fever but endorses to shaking chills. She denies eight loss/rash/joint pain and swelling or bloody stool. She is up-to- date on her cancer screening. She denies sick contacts or recent travel or exposure to birds. She denies high -risk sexual behavior. Denies prior history of HIV or substance abuse. Initial workup in the ER was significant with a CT chest revealing multiple foci of parenchymal hemorrhage with a differential including inflammatory versus infectious etiology. White count is over 15,000. ubsequent hospitalist service was consulted. Patient received first dose of antibiotics. At the time of evaluation patient is alert and oriented. She appears fairly distressed and anxious from shortness of breath. She experiencing frequent spells of coughing but nonproductive over the last few hours. She endorses history of smoking but quit in 2004. other than that she denies loody stool, bloody urine, joint swelling or rash glandular swelling. She denies headache photophobia joint pain or abnormal lower extremity sensations. review of systems 10 point review of system was performed and is negative except as discussed above Medical - H&P: PMH Medical history: hypothyroidism history of asthma/COPD Restless leg syndrome GERD Hyperlipidemia anxiety disorder Hypertension depression IBS Osteoarthritis Surgical history: right shoulder arthroplasty right knee replacement Left knee replacement This replacement lower back Appendectomy Cholecystectomy Hysterectomy Family history: reviewed and not pertinent Pertinent family history: Father Cancer gout and diabetes Mother hypertension 1 sibling cancer Social history: occasional beer no history of drug use lives alone Sister [place] ALDRICH Quit smoking 2004 Medical - H&P: Meds Home Medications Medication Instructions Recorded Confirmed Type Albuterol Sulfate [Ventolin] 1 puff INH Q4HP PRN 03/10/17 09/19/17 History Atenolol [Tenormin] 50 mg PO DAILY 03/10/17 09/19/17 History Budesonide/Formoterol Fumarate 1 puff INH BID 03/10/17 09/19/17 History [Symbicort 160-4.5 Mcg Inhaler] Colestipoll [Colestid] 3 gm PO DAILY@1600 03/10/17 09/19/17 History Colestipoll [Colestid] 4 gm PO DAILY 03/10/17 09/19/17 History Cyclobenzaprine [Flexeril] 10 mg PO BIDP PRN 03/10/17 09/19/17 History DULoxetine HCL [Cymbalta] 60 mg PO BID 03/10/17 09/19/17 History Dicyclomine 20 mg PO BID 03/10/17 09/19/17 History Estradiol [Alina] 1 each TD [place]@0900 03/10/17 09/19/17 History Etodolac [Lodine] 500 mg PO BID 03/10/17 09/19/17 History [place] Carbonate [Lithobid] 300 mg PO DAILY 03/10/17 09/19/17 History [place] Carbonate [Lithobid] 600 mg PO HS 03/10/17 09/19/17 History Polyvinyl Alcohol/Povidone/Pf 1 drop OU DAILYP PRN 03/10/17 09/19/17 History [Refresh Classic Eye Drops] Pramipexole [Mirapex] 0.5 mg PO HSP PRN 03/10/17 09/19/17 History Rosuvastatin Calcium [Crestor] 40 mg PO HS 03/10/17 09/19/17 History busPIRone [Buspar] 15 mg PO BID 03/10/17 09/19/17 History Pantoprazole [Protonix] 40 mg PO BID 03/15/17 09/19/17 History Ipratropium/Albuterol [Duoneb] 3 ml NEB TIDP PRN 04/18/17 09/19/17 History Levothyroxine [Synthroid] 200 mcg PO ACB 04/18/17 09/19/17 History Multivit,Ther Iron,Ca,FA & Min 1 tab PO DAILY 04/18/17 09/19/17 History [Multivitamin W/Minerals] Simethicone [Anti-Gas] 180 mg PO BID PRN 04/18/17 09/19/17 History Vitamin D3 5,000 unit PO DAILY 04/18/17 09/19/17 History traZODone HCL [Trazodone HCl] 100 mg PO HS 04/18/17 09/19/17 History Aspirin 325 mg PO BID #30 tab 04/24/17 09/19/17 Rx Losartan [Cozaar] 25 mg PO DAILY 09/19/17 09/19/17 History Allergies Allergy/AdvReac Type Severity Reaction Status Date / Time fexofenadine [From KAREL] Allergy Intermediate RASH Verified 09/19/17 07:15 rofecoxib [From VIOXX] Allergy Intermediate RASH Verified 09/19/17 07:15 NARCOTICS AdvReac Mild HALLUCINATE Uncoded 04/04/16 11:34 Medical - H&P: Exam - Constitutional Vitals: Temp Pulse Resp BP Pulse Ox 97.2 F 82 18 110/72 100 09/19/17 07:15 09/19/17 09:10 09/19/17 09:10 09/19/17 09:03 09/19/17 09:10 General appearance: moderate distress (shortness of breath) Exam: anxious and short of breath Pupils symmetric oral cavity dry No eardischarge Head normocephalic Neck no lymphadenopathy S1 and S2 tachycardia Expiratory rhonchi Diminished breath sounds bases abdomen soft Lower extremity No cyanosis clubbing joint swelling Skin no suspicious lesion Psych anxious Neuro nonfocal Medical - H&P: Reslt - Labs CBC & Chem 7: 09/19/17 07:45 09/19/17 07:45 Labs: Short CBC 09/19/17 Range/Units 07:45 WBC 15.9 H (4.5-11.0) K/mcL Hgb 11.9 L (12.0-15.0) g/dL Hct 35.4 L (36.0-48.0) % Plt Count 274 (140-440) K/mcL BMP 09/19/17 07:45 Sodium 141 Potassium 3.5 Chloride 102 Carbon Dioxide 28 BUN 15 Creatinine 0.7 Glucose 120 H Calcium 9.0 Cardiac Enzymes 09/19/17 Range/Units 07:45 Troponin T < 0.01 (0-0.03) ng/ml Liver Function 09/19/17 Range/Units 07:45 Total Bilirubin 0.5 (0.0-1.0) mg/dL AST 25 (0-37) U/l ALT 32 (0-40) U/l Alkaline Phosphatase 133 H (39-117) U/L Albumin 4.1 (3.2-5.2) gm/dL Urine 09/19/17 Range/Units 08:37 Urine Color Yellow Urine Appearance Hazy Urine pH 6.0 (5.0-9.0) Ur Specific [place] 1.020 (1.000-1.035) Urine Protein Neg (NEG) mg/dL Urine Glucose (UA) Negative (NEG) mg/dL Medical - H&P: A/P (1) Hemoptysis Current visit: Yes Status: Acute * hemoptysis-with pulmonary nodular infiltrate-infectious versus inflammatory. CT no evidence of malignancy. Await sputum culture/[id number] RF/ Fungal cultures AFB / [place]ka,Legionella/mycoplasma/Streptococcus antigen. Start empiric antibiotic coverage. Pulmonology consult. Bronchodilators. Admit to telemetry. Pulm consult for bronch if no evident diagnosis. * leukocytosis-continue evaluation. * history of anxiety disorder continue BuSpar/Cymbalta * GERD continue PPI * Restless leg syndrome continue pramipexole * history of hypertension continue atenolol * hypothyroidism continue thyroxine * Full code * prophylaxis SCDs until the hemoptysis resolved Plan * pulmonology consult * Antibiotic coverage * workup as above * pre-existing medical condition management and home meds * Admitted as inpatient telemetry
[2017-09-19] MEDS ORDERED: ONDANSETRON 4 MG/2 ML VIAL IV PRN (10:47)
[2017-09-19] MEDS ORDERED: guaiFENesin/CODEINE 10 ML UDC PO PRN (10:47)
[2017-09-19] MEDS ORDERED: ACETAMINOPHEN 325 MG TABLET PO PRN (10:47)
[2017-09-19] MEDS: IPRATROPIUM/ALBUTEROL 3 ML AMPUL.NEB NEB SCH ×4 (11:18→23:17)
[2017-09-19] MEDS: cefTRIAXone 2 GM in DEXTROSE 5% IN WATER 50 ML IV SCH (11:20)
[2017-09-19] MEDS: LEVOFLOXACIN 750 MG/150 ML BAG IV SCH (11:55)
[2017-09-19 12:23] LABS: C-Reactive Protein 3.2 mg/dl (0.0-0.8); Rheumatoid Factor < 10 IU/ml (0-14)
[2017-09-19] MEDS: 0.9 % SODIUM CHLORIDE 10 ML SYRINGE IV SCH ×2 (13:56→22:00)
[2017-09-19] MEDS ORDERED: BENZOCAINE/MENTHOL 1 LOZENGE PO PRN (15:32)
[2017-09-19 15:52] LABS: Complement C3 177.1 mg/dl (90-180)
--- NOTE | 2017-09-19 17:12 | Ultrasound Report ---
History: Hemoptysis and restless leg syndrome Findings: There is normal augmentation and compressibility of the deep veins and greater saphenous vein in the right leg from the groin through the calf. Doppler shows normal waveform patterns. No abnormal fluid collection is present. Impression: Normal exam, without evidence of deep venous thrombosis Interpreted and Authenticated by: Rasheed Grier 09/19/17
[2017-09-19] MEDS: BUDESONIDE 0.5 MG/2 ML AMPUL.NEB NEB SCH (19:13)
[2017-09-19] MEDS ORDERED: methylPREDNISolone SOD SUCC 125 MG/2 ML VIAL ONE (19:25)
[2017-09-19] MEDS ORDERED: CYCLOBENZAPRINE 10 MG TABLET PO PRN (19:55)
[2017-09-19] MEDS ORDERED: POLYVINYL ALCOHOL OPHTH DROPS 15ML BOTTLE OU PRN (20:16)
[2017-09-19] MEDS ORDERED: PRAMIPEXOLE 0.25 MG TABLET PO PRN (21:00)
[2017-09-19] MEDS ORDERED: LITHIUM CARBONATE 300 MG TABLET PO SCH (21:00)
[2017-09-19] MEDS ORDERED: SIMETHICONE 80 MG TAB.CHEW CHEWED PRN (21:00)
[2017-09-19] MEDS ORDERED: ATORVASTATIN 20 MG TABLET PO SCH (21:00)
[2017-09-19] MEDS ORDERED: traZODone HCL 50 MG TABLET PO SCH (21:00)
[2017-09-19] MEDS ORDERED: SENNOSIDES/DOCUSATE SODIUM 1 TAB TABLET PO SCH (21:00)
[2017-09-19] MEDS: busPIRone 15 MG TABLET PO SCH (21:04)
[2017-09-19] MEDS: PANTOPRAZOLE 40 MG TABLET PO SCH (21:04)
[2017-09-19] MEDS: ASPIRIN 325 MG ENTERIC COATED TABLET PO SCH (21:04)
[2017-09-19] MEDS: DULoxetine 30 MG CAPSULE PO SCH (21:04)
[2017-09-19] MEDS: DICYCLOMINE 20 MG TABLET PO SCH (21:05)
[2017-09-19] MEDS: DOCUSATE SODIUM 100 MG CAPSULE PO SCH (21:07)
[2017-09-19] MEDS: BUDESONIDE INH SCH (21:07)
[2017-09-19] MEDS: FORMOTEROL FUMARATE INH SCH (21:07)
[2017-09-20] MEDS: IPRATROPIUM/ALBUTEROL 3 ML AMPUL.NEB NEB SCH ×6 (03:02→23:27)
[2017-09-20 05:01] LABS: Mean Cell Volume 83.2 fL (80.0-100.0); Mean Corpuscular HGB Conc 33.5 g/dL (31.0-36.0); Mean Corpuscular Hemoglobin 27.9 pg (26.0-34.0); Platelet Count 263 K/mcL (140-440); RBC 4.11 M/mcL (4.00-5.20); Red Cell Distribution Width 16.3 % (11.5-14.5)
[2017-09-20 05:27] LABS: ALT/SGPT 29 U/l (0-40); Albumin 3.9 gm/dL (3.2-5.2); Albumin/Globulin Ratio 1.3 (1.0-2.3); Alkaline Phosphatase 128 U/L (39-117); Bilirubin,Direct < 0.2 mg/dL (0.0-0.3); Blood Urea Nitrogen 10 mg/dl (6-20); Gamma Glutamyl Transpeptidase 19 U/L (5-36)
[2017-09-20 06:27] LABS: Anisocytosis 1+ (NONE SEEN); Lymphocytes % 3 % (15-49); Monocytes % (Manual) 1 % (1-12); Platelet Estimate NORMAL (NORMAL); RBC Morphology ABNORM (NORMAL); Segmented Neutrophils % 96 % (38-78)
[2017-09-20] MEDS ORDERED: LEVOTHYROXINE 100 MCG TABLET PO SCH (07:30)
[2017-09-20] MEDS: 0.9 % SODIUM CHLORIDE 10 ML SYRINGE IV SCH ×3 (08:08→21:52)
[2017-09-20] MEDS: PANTOPRAZOLE 40 MG TABLET PO SCH ×2 (08:08→20:31)
[2017-09-20] MEDS: ASPIRIN 325 MG ENTERIC COATED TABLET PO SCH ×2 (08:09→20:32)
[2017-09-20] MEDS: busPIRone 15 MG TABLET PO SCH ×2 (08:09→20:32)
[2017-09-20] MEDS: DICYCLOMINE 20 MG TABLET PO SCH ×2 (08:09→20:31)
[2017-09-20] MEDS: DULoxetine 30 MG CAPSULE PO SCH ×2 (08:09→20:31)
[2017-09-20] MEDS: DOCUSATE SODIUM 100 MG CAPSULE PO SCH ×2 (08:10→20:32)
[2017-09-20] MEDS: BUDESONIDE 0.5 MG/2 ML AMPUL.NEB NEB SCH ×2 (08:28→19:28)
[2017-09-20] MEDS: cefTRIAXone 2 GM in DEXTROSE 5% IN WATER 50 ML IV SCH (08:36)
[2017-09-20] MEDS: LEVOFLOXACIN 750 MG/150 ML BAG IV SCH (08:36)
[2017-09-20] MEDS ORDERED: VITAMIN D3 5,000 UNIT CAPSULE PO SCH (09:00)
[2017-09-20] MEDS ORDERED: LITHIUM CARBONATE 150 MG CAPSULE PO SCH ×2 (09:00→21:00)
[2017-09-20] MEDS ORDERED: MULTIVIT,THER IRON,CA,FA & MIN 1 TABLET PO SCH ×2 (09:00)
[2017-09-20] MEDS ORDERED: LOSARTAN 25 MG TABLET PO SCH (09:00)
[2017-09-20] MEDS ORDERED: COLESTIPOLL 1 GM TABLET PO SCH ×2 (09:00→16:00)
[2017-09-20] MEDS ORDERED: ATENOLOL 50 MG TABLET PO SCH (09:00)
--- NOTE | 2017-09-20 12:26 | Internal Med Progress Note ---
Medical - PN: Subj Patient information: Note initiated : 09/20/17 at 12:24 pm Service Date, if different from initiated Date: [] Patient: Saundra Cardona a 57 y/o F admitted on 09/19/17 for Cold/Flu. Chief Complaint: [] Interval history: Ms. Cardona is a 57 year old F with h/o COPD, anxiety, woke up SOB yesterday morning and srtarted coughing bloody sputum aaround 7:30 in the morning. She had another spell of coughing episode associated with bloody expectorate around 11 AM. over the course of the day patient progressed with worsening shortness of breath. she denied associated fever but endorses to shaking chills. She denies eight loss/rash/joint pain and swelling or bloody stool. She is up-to- date on her cancer screening. She denies sick contacts or recent travel or exposure to birds. She denies high -risk sexual behavior. Denies prior history of HIV or substance abuse. Initial workup in the ER was significant with a CT chest revealing multiple foci of parenchymal hemorrhage with a differential including inflammatory versus infectious etiology. White count is over 15,000. [facility] hospitalist service was consulted. Patient received first dose of antibiotics. At the time of evaluation patient is alert and oriented. She appears fairly distressed and anxious from shortness of breath. She experiencing frequent spells of coughing but nonproductive over the last few hours. She endorses history of smoking but quit in 2004. other than that she denies loody stool, bloody urine, joint swelling or rash glandular swelling. She denies headache photophobia joint pain or abnormal lower extremity sensations. 09/20 Patient seen and examined, doing well, still has cough but not much of bloody sputum. Pulmonary consult appreciated. Patient on steroids now continue duo nebs. Patient on levofloxacin for antibiotic coverage. Workup for autoimmune disease pending C3-C4 is normal so doubt if lupus is the underlying etiology. Patient does have history of COPD and asthma this morning however notes that the breathing is much better compared to yesterday. Urinalysis does not show significant hematuria or proteinuria Pertinent ROS: Denies headache, dizziness Denies chest pain, palpitations Improving cough and shortness of breath Denies abdominal pain, nausea or vomiting. - Constitutional Vitals: Vital Signs Temp Pulse Resp BP Pulse Ox 97.7 F 76 18 141/77 92 09/20/17 04:00 09/20/17 12:00 09/20/17 12:00 09/20/17 04:00 09/20/17 04:00 Period Temp Pulse Resp BP Sys/Méndez Pulse Ox Last 24 Hr 97.7 F-99.4 F 76-100 16-24 98-141/55-77 92-98 Intake and Output 09/19/17 09/20/17 09/20/17 21:59 05:59 13:59 Intake Total 360 / 360 Output Total 300 / 300 1350 / 1350 Balance -300 / -300 -990 / -990 Weight 215 lb 8 oz Intake & Output: Intake & Output 09/19/17 09/20/17 09/20/17 21:59 05:59 13:59 Intake Total 360 / 360 Output Total 300 / 300 1350 / 1350 Balance -300 / -300 -990 / -990 Weight 215 lb 8 oz Intake: Oral 360 / 360 Output: Void Amount 300 / 300 1350 / 1350 Other: # Voids 1 Exam: Constitutional; Afebrile, cooperative, alert, not in distress. Obese individual Eyes- No icterus, , No periorbital swelling Ears- Ext ear normal, hearing normal to conversation. Neck- Midline trachea, supple Respiratory system: Air Entry equal on both sides, No crackles or wheezing, no rhonchi. CVS- Rate rhythm regular, S1,S2 heard, no gallop, no rub. 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 Medical - PN: Obj Da - Labs CBC & Chem 7: 09/20/17 03:32 09/20/17 03:32 Labs: Abnormal Lab Results 09/20/17 09/20/17 09/19/17 03:32 03:32 16:24 WBC 14.0 H Hgb 11.5 L Hct 34.2 L POC Hct RDW 16.3 H MPV Lymph % (Auto) Gran # [place] # (Auto) Seg Neutrophils % 96 H Lymphocytes % 3 L RBC Morphology Abnorm A Anisocytosis 1+ A ESR PT 14.8 H INR 1.2 H Glucose 172 H POC Glucose POC WB Ioniz Calcium Alkaline Phosphatase 128 H C-Reactive Protein Ur Leukocyte Esterase Ur Squamous Epith Cells 09/19/17 09/19/17 09/19/17 11:30 11:30 08:37 WBC Hgb Hct POC Hct RDW MPV Lymph % (Auto) Gran # [place] # (Auto) Seg Neutrophils % Lymphocytes % RBC Morphology Anisocytosis ESR 48 H PT INR Glucose POC Glucose POC WB Ioniz Calcium Alkaline Phosphatase C-Reactive Protein 3.2 H Ur Leukocyte Esterase 25 A Ur Squamous Epith Cells 7 H 09/19/17 09/19/17 07:45 07:45 WBC 15.9 H Hgb 11.9 L Hct 35.4 L POC Hct 34.0 L RDW 16.1 H MPV 7.3 L Lymph % (Auto) 13.8 L Gran # 12.2 H [place] # (Auto) 1.2 H Seg Neutrophils % Lymphocytes % RBC Morphology Anisocytosis ESR PT INR Glucose 120 H POC Glucose 119 H POC WB Ioniz Calcium 1.15 L Alkaline Phosphatase 133 H C-Reactive Protein Ur Leukocyte Esterase Ur Squamous Epith Cells Meds: Medications Acetaminophen (Tylenol) 650 mg PO Q4-6HP PRN PRN Reason: PAIN/FEVER > 101 Albuterol/Ipratropium (Duoneb) 3 ml NEB Q4HRT [facility] Last Admin: 09/20/17 11:59 Dose: 3 ml Artificial Tears (Artificial Tears Ophth Drops) 1 gtt OU DAILYP PRN PRN Reason: Dry Eyes Aspirin (Ecotrin) 325 mg PO BID [facility] Last Admin: 09/20/17 08:09 Dose: 325 mg Atenolol (Tenormin) 50 mg PO DAILY [facility] Last Admin: 09/20/17 08:09 Dose: 50 mg Atorvastatin Calcium (Lipitor) 80 mg PO HS [facility] Last Admin: 09/19/17 21:04 Dose: 80 mg Budesonide (Pulmicort) 0.5 mg NEB Q12 [facility] Last Admin: 09/20/17 08:28 Dose: 0.5 mg Buspirone HCl (Buspar) 15 mg PO BID [facility] Last Admin: 09/20/17 08:09 Dose: 15 mg Colestipol HCl (Colestid) 3 gm PO DAILY@1600 [facility] Colestipol HCl (Colestid) 4 gm PO DAILY [facility] Cyclobenzaprine HCl (Flexeril) 10 mg PO BIDP PRN PRN Reason: Spasms Last Admin: 09/20/17 08:09 Dose: 10 mg Dicyclomine HCl (Dicyclomine) 20 mg PO BID [facility] Last Admin: 09/20/17 08:09 Dose: 20 mg Docusate Sodium (Colace) 100 mg PO BID [facility] Last Admin: 09/20/17 08:10 Dose: 100 mg Duloxetine HCl (Cymbalta) 60 mg PO BID [facility] Last Admin: 09/20/17 08:09 Dose: 60 mg Guaifenesin/Codeine Phosphate (Robitussin Ac) 10 ml PO Q4HP PRN PRN Reason: Cough Ceftriaxone Sodium 2 gm/ (Dextrose) 50 mls @ 100 mls/hr IV DAILY [facility] Last Admin: 09/20/17 08:36 Dose: 100 mls/hr Levofloxacin (Levaquin) 750 mg in 150 mls @ 100 mls/hr IV DAILY [facility] Last Admin: 09/20/17 08:36 Dose: 100 mls/hr Iron Carb/Multivit/Sealer Dry Cell/Folic Acid (Multivitamin W/Minerals) 1 tab PO DAILY [facility] Last Admin: 09/20/17 08:08 Dose: 1 tab Levothyroxine Sodium (Synthroid) 200 mcg PO ACB [facility] Last Admin: 09/20/17 07:39 Dose: 200 mcg Boles Carbonate (Boles Carbonate) 300 mg PO DAILY [facility] Last Admin: 09/20/17 08:36 Dose: 300 mg Boles Carbonate (Boles Carbonate) 600 mg PO HS [facility] Losartan Potassium (Cozaar) 25 mg PO DAILY [facility] Last Admin: 09/20/17 08:08 Dose: 25 mg Methylprednisolone Sodium Succinate (Solu-Medrol) 40 mg IV Q6 [facility] Non-Formulary Medication (Estradiol [Alina]) 1 each TD [place]@0900 [facility] Ondansetron HCl (Zofran) 4 mg IV Q4-6HP PRN PRN Reason: Nausea And Vomiting Pantoprazole Sodium (Protonix) 40 mg PO BID [facility] Last Admin: 09/20/17 08:08 Dose: 40 mg Budesonide/Formoterol Fumarate [Symbicort 160-4.5 Mcg Inhaler] 1 dose INH BID [facility] Last Admin: 09/19/17 21:07 Dose: Not Given Pramipexole Dihydrochloride (Mirapex) 0.25 mg PO HSP PRN PRN Reason: RESTLESS LEGS SYNDROME Senna/Docusate Sodium (Senna Plus Tablet) 1 tab PO HS [facility] Last Admin: 09/19/17 21:04 Dose: 1 tab Simethicone (Mylicon) 160 mg CHEWED BIDP PRN PRN Reason: GAS Sodium Chloride (Saline Flush) 10 ml IV Q8 [facility] Last Admin: 09/20/17 08:08 Dose: 10 ml Throat Lozenges (Cepacol) 1 lozenge PO PRN PRN PRN Reason: Sore Throat Last Admin: 09/20/17 08:08 Dose: 1 lozenge Trazodone HCl (Desyrel) 100 mg PO HS [facility] Last Admin: 09/19/17 21:04 Dose: 100 mg Vitamin D (Vitamin D3) 5,000 unit PO DAILY [facility] Last Admin: 09/20/17 08:09 Dose: 5,000 unit Medical - PN: A/P - Time Spent With Patient Total time spent is greater than 50% in coordination of care (as documented) at patient's floor/unit and/or counseling patient: - Narrative A/P Narrative: A/P Hemoptysis with pulmonary infiltrates-inflammatory which is infectious continue antibiotics steroids and duo nebs. Appreciate pulmonary help. Cultures are negative so far. Clinically patient is responding. Serologies for autoimmune workup is pending Because cytosis trending down secondary to bronchitis versus pneumonia GERD-continue PPIs Restless leg syndrome continue pramipexole COPD/asthma exacerbation-on steroids and duo nebs patient's respiration is improving Hypertension-continue atenolol, continue losartan Bipolar disorder-patient is on lithium continue same check levels Hypothyroidism-continue levothyroxine Patient is full code Prophylaxis DVT-sequential compressions as the hemoptysis is acute. Xfer to med surg status Medical - PN: Qual - VTE Deep Vein Thrombosis/Pulmonary Embolism Present on Admission: No
[2017-09-20] MEDS: FORMOTEROL FUMARATE INH SCH (13:02)
[2017-09-20] MEDS: BUDESONIDE INH SCH ×2 (13:02→21:20)
[2017-09-20] MEDS ORDERED: POLYETHYLENE GLYCOL 3350 17 GM PACKET PO ONE (13:11)
[2017-09-20] MEDS ORDERED: ONDANSETRON 4 MG/2 ML VIAL IV PRN (15:25)
[2017-09-20] MEDS ORDERED: guaiFENesin/CODEINE 10 ML UDC PO PRN (15:25)
[2017-09-20] MEDS ORDERED: CYCLOBENZAPRINE 10 MG TABLET PO PRN (15:25)
[2017-09-20] MEDS ORDERED: SIMETHICONE 80 MG TAB.CHEW CHEWED PRN (15:25)
[2017-09-20] MEDS ORDERED: ACETAMINOPHEN 325 MG TABLET PO PRN (15:25)
[2017-09-20] MEDS ORDERED: BENZOCAINE/MENTHOL 1 LOZENGE PO PRN (15:25)
[2017-09-20] MEDS: COLESTIPOLL 1 GM TABLET PO SCH (17:59)
[2017-09-20] MEDS: methylPREDNISolone SOD SUCC 40 MG/ML VIAL IV SCH ×2 (18:00→23:28)
[2017-09-20] MEDS ORDERED: methylPREDNISolone SOD SUCC 40 MG/ML VIAL IV SCH (18:24)
[2017-09-20] MEDS: ATORVASTATIN 20 MG TABLET PO SCH (20:31)
[2017-09-20] MEDS: SENNOSIDES/DOCUSATE SODIUM 1 TAB TABLET PO SCH (20:32)
[2017-09-20] MEDS: LITHIUM CARBONATE 150 MG CAPSULE PO SCH (20:32)
[2017-09-20] MEDS: PRAMIPEXOLE 0.25 MG TABLET PO PRN (20:35)
[2017-09-20] MEDS: FORMOTEROL INH SCH (21:20)
[2017-09-20] MEDS: traZODone HCL 50 MG TABLET PO SCH (23:28)
[2017-09-21] MEDS: IPRATROPIUM/ALBUTEROL 3 ML AMPUL.NEB NEB SCH ×6 (03:29→23:21)
[2017-09-21] MEDS: 0.9 % SODIUM CHLORIDE 10 ML SYRINGE IV SCH ×3 (05:42→21:12)
[2017-09-21] MEDS: methylPREDNISolone SOD SUCC 40 MG/ML VIAL IV SCH ×4 (05:42→23:23)
[2017-09-21 05:56] LABS: Mean Cell Volume 83.8 fL (80.0-100.0); Mean Corpuscular HGB Conc 33.2 g/dL (31.0-36.0); Mean Corpuscular Hemoglobin 27.8 pg (26.0-34.0); Platelet Count 283 K/mcL (140-440); RBC 4.05 M/mcL (4.00-5.20); Red Cell Distribution Width 17.1 % (11.5-14.5)
[2017-09-21 06:19] LABS: ALT/SGPT 27 U/l (0-40); Albumin 3.7 gm/dL (3.2-5.2); Albumin/Globulin Ratio 1.2 (1.0-2.3); Alkaline Phosphatase 122 U/L (39-117); Bilirubin,Direct < 0.2 mg/dL (0.0-0.3); Blood Urea Nitrogen 16 mg/dl (6-20); Gamma Glutamyl Transpeptidase 23 U/L (5-36); Uric Acid 3.1 mg/dL (2.5-8.0)
[2017-09-21 06:54] LABS: Anisocytosis 1+ (NONE SEEN); Band Neutrophils % 5 % (0-10); Lymphocytes % 11 % (15-49); Monocytes % (Manual) 1 % (1-12); Platelet Estimate NORMAL (NORMAL); RBC Morphology ABNORM (NORMAL); Segmented Neutrophils % 83 % (38-78); Toxic Granulation 1+ (NONE SEEN)
[2017-09-21] MEDS: BUDESONIDE 0.5 MG/2 ML AMPUL.NEB NEB SCH ×2 (07:18→19:41)
[2017-09-21] MEDS: COLESTIPOLL 1 GM TABLET PO SCH ×2 (07:47→16:15)
[2017-09-21] MEDS ORDERED: ESTRADIOL 0.05 MG PATCH TD SCH ×2 (09:00)
[2017-09-21] MEDS: POLYVINYL ALCOHOL OPHTH DROPS 15ML BOTTLE OU PRN (09:54)
[2017-09-21] MEDS: LITHIUM CARBONATE 150 MG CAPSULE PO SCH ×2 (09:55→21:15)
[2017-09-21] MEDS: LEVOTHYROXINE 100 MCG TABLET PO SCH (09:55)
[2017-09-21] MEDS: guaiFENesin/DEXTROMETHORPHAN ORAL SOL PO PRN ×2 (09:55→21:12)
[2017-09-21] MEDS: DULoxetine 30 MG CAPSULE PO SCH ×2 (09:56→21:11)
[2017-09-21] MEDS: LOSARTAN 25 MG TABLET PO SCH (09:56)
[2017-09-21] MEDS: busPIRone 15 MG TABLET PO SCH ×2 (09:56→21:11)
[2017-09-21] MEDS: PANTOPRAZOLE 40 MG TABLET PO SCH ×2 (09:58→21:11)
[2017-09-21] MEDS: VITAMIN D3 5,000 UNIT CAPSULE PO SCH (09:58)
[2017-09-21] MEDS: MULTIVIT,THER IRON,CA,FA & MIN 1 TABLET PO SCH (09:58)
[2017-09-21] MEDS: DOCUSATE SODIUM 100 MG CAPSULE PO SCH ×2 (09:59→21:11)
[2017-09-21] MEDS: ATENOLOL 50 MG TABLET PO SCH (09:59)
[2017-09-21] MEDS: DICYCLOMINE 20 MG TABLET PO SCH ×2 (10:00→21:11)
[2017-09-21] MEDS: ASPIRIN 325 MG ENTERIC COATED TABLET PO SCH ×2 (10:01→21:10)
[2017-09-21] MEDS: LEVOFLOXACIN 750 MG/150 ML BAG IV SCH (10:01)
[2017-09-21] MEDS: BUDESONIDE INH SCH ×2 (10:01→21:11)
[2017-09-21] MEDS: FORMOTEROL INH SCH ×2 (10:01→21:11)
--- NOTE | 2017-09-21 11:02 | Internal Med Progress Note ---
Medical - PN: Subj Patient information: Note initiated : 09/21/17 at 10:59 am Service Date, if different from initiated Date: [] Patient: Saundra Cardona a 57 y/o F admitted on 09/19/17 for Cold/Flu. Chief Complaint: [] Interval history: Ms. Cardona is a 57 year old F with h/o COPD, anxiety, woke up SOB yesterday morning and srtarted coughing bloody sputum aaround 7:30 in the morning. She had another spell of coughing episode associated with bloody expectorate around 11 AM. over the course of the day patient progressed with worsening shortness of breath. she denied associated fever but endorses to shaking chills. She denies eight loss/rash/joint pain and swelling or bloody stool. She is up-to- date on her cancer screening. She denies sick contacts or recent travel or exposure to birds. She denies high -risk sexual behavior. Denies prior history of HIV or substance abuse. Initial workup in the ER was significant with a CT chest revealing multiple foci of parenchymal hemorrhage with a differential including inflammatory versus infectious etiology. White count is over 15,000. [facility] hospitalist service was consulted. Patient received first dose of antibiotics. At the time of evaluation patient is alert and oriented. She appears fairly distressed and anxious from shortness of breath. She experiencing frequent spells of coughing but nonproductive over the last few hours. She endorses history of smoking but quit in 2004. other than that she denies loody stool, bloody urine, joint swelling or rash glandular swelling. She denies headache photophobia joint pain or abnormal lower extremity sensations. 09/20 Patient seen and examined, doing well, still has cough but not much of bloody sputum. Pulmonary consult appreciated. Patient on steroids now continue duo nebs. Patient on levofloxacin for antibiotic coverage. Workup for autoimmune disease pending C3-C4 is normal so doubt if lupus is the underlying etiology. Patient does have history of COPD and asthma this morning however notes that the breathing is much better compared to yesterday. Urinalysis does not show significant hematuria or proteinuria 09/21 Patient seen and examined, no acute overnight events, cough is still present but no significant hemoptysis reported. Workup is negative so far. This morning after her walk she became short of breath. She also has prolonged expiratory phase and some wheezing on today's exam. Chest x-ray was ordered. She continues to be on levofloxacin. Plan of care reviewed with pulmonary. She is on duo nebs and steroids. Clinically she is improving. Autoimmune workup is still pending. Plan to continue current management anticipate discharge tomorrow if breathing is better Pertinent ROS: Denies headache, dizziness Denies chest pain, palpitations Cough and shortness of breath present, improved since admission Denies abdominal pain, nausea or vomiting. - Constitutional Vitals: Vital Signs Temp Pulse Resp BP Pulse Ox 98.6 F 97 H 20 94/56 97 09/21/17 06:50 09/21/17 07:19 09/21/17 07:19 09/21/17 06:50 09/21/17 06:50 Period Temp Pulse Resp BP Sys/Méndez Pulse Ox Last 24 Hr 97.8 F-99.1 F 76-98 16-20 94-121/56-72 92-98 Intake and Output 09/20/17 09/21/17 09/21/17 21:59 05:59 13:59 Intake Total 1040 / 1040 410 / 410 Output Total 400 / 400 1100 / 1100 Balance 640 / 640 -690 / -690 Weight 220 lb Intake & Output: Intake & Output 09/20/17 09/21/17 09/21/17 21:59 05:59 13:59 Intake Total 1040 / 1040 410 / 410 Output Total 400 / 400 1100 / 1100 Balance 640 / 640 -690 / -690 Weight 220 lb Intake: Oral 1040 / 1040 410 / 410 Output: Void Amount 400 / 400 1100 / 1100 Other: Meal Nourishment/Supplement # Voids 1 Exam: Constitutional; Afebrile, cooperative, alert, not in distress. Eyes- No icterus, , No periorbital swelling Ears- Ext ear normal, hearing normal to conversation. Neck- Midline trachea, supple Respiratory system: Air Entry equal on both sides, prolonged expiratory phase, expiratory wheezing present patient able to speak full sentences no accessory muscle use CVS- Rate rhythm regular, S1,S2 heard, no gallop, no rub. Abdomen- Soft nontender abdomen, no organomegaly, no tenderness, no guarding or rigidity, DIRECTOR INVESTOR RELATIONS- AOOx3, moving all extremities, no gross focal deficit noted. Medical - PN: Obj Da - Labs CBC & Chem 7: 0415/18 04:38 09/21/17 04:38 Labs: Abnormal Lab Results 09/21/17 09/21/17 09/20/17 04:38 04:38 03:32 WBC 14.4 H Hgb 11.3 L Hct 34.0 L POC Hct RDW 17.1 H MPV 7.3 L Lymph % (Auto) Gran # [place] # (Auto) Seg Neutrophils % 83 H Lymphocytes % 11 L WBC Morphology Abnorm A Toxic Granulation 1+ A RBC Morphology Abnorm A Anisocytosis 1+ A ESR PT INR Glucose 189 H 172 H POC Glucose POC WB Ioniz Calcium Alkaline Phosphatase 122 H 128 H C-Reactive Protein Ur Leukocyte Esterase Ur Squamous Epith Cells 09/20/17 09/19/17 09/19/17 03:32 16:24 11:30 WBC 14.0 H Hgb 11.5 L Hct 34.2 L POC Hct RDW 16.3 H MPV Lymph % (Auto) Gran # [place] # (Auto) Seg Neutrophils % 96 H Lymphocytes % 3 L WBC Morphology Toxic Granulation RBC Morphology Abnorm A Anisocytosis 1+ A ESR PT 14.8 H INR 1.2 H Glucose POC Glucose POC WB Ioniz Calcium Alkaline Phosphatase C-Reactive Protein 3.2 H Ur Leukocyte Esterase Ur Squamous Epith Cells 09/19/17 09/19/17 09/19/17 11:30 08:37 07:45 WBC Hgb Hct POC Hct 34.0 L RDW MPV Lymph % (Auto) Gran # [place] # (Auto) Seg Neutrophils % Lymphocytes % WBC Morphology Toxic Granulation RBC Morphology Anisocytosis ESR 48 H PT INR Glucose 120 H POC Glucose 119 H POC WB Ioniz Calcium 1.15 L Alkaline Phosphatase 133 H C-Reactive Protein Ur Leukocyte Esterase 25 A Ur Squamous Epith Cells 7 H 09/19/17 07:45 WBC 15.9 H Hgb 11.9 L Hct 35.4 L POC Hct RDW 16.1 H MPV 7.3 L Lymph % (Auto) 13.8 L Gran # 12.2 H [place] # (Auto) 1.2 H Seg Neutrophils % Lymphocytes % WBC Morphology Toxic Granulation RBC Morphology Anisocytosis ESR PT INR Glucose POC Glucose POC WB Ioniz Calcium Alkaline Phosphatase C-Reactive Protein Ur Leukocyte Esterase Ur Squamous Epith Cells Meds: Medications Acetaminophen (Tylenol) 650 mg PO Q4-6HP PRN PRN Reason: PAIN/FEVER > 101 Albuterol/Ipratropium (Duoneb) 3 ml NEB Q4HRT [facility] Last Admin: 09/21/17 07:18 Dose: 3 ml Artificial Tears (Artificial Tears Ophth Drops) 1 gtt OU DAILYP PRN PRN Reason: Dry Eyes Last Admin: 09/21/17 09:54 Dose: 1 gtt Aspirin (Ecotrin) 325 mg PO BID [facility] Last Admin: 09/21/17 10:01 Dose: 325 mg Atenolol (Tenormin) 50 mg PO DAILY [facility] Last Admin: 09/21/17 09:59 Dose: 50 mg Atorvastatin Calcium (Lipitor) 80 mg PO HS [facility] Last Admin: 09/20/17 20:31 Dose: 80 mg Budesonide (Pulmicort) 0.5 mg NEB Q12 [facility] Last Admin: 09/21/17 07:18 Dose: 0.5 mg Buspirone HCl (Buspar) 15 mg PO BID [facility] Last Admin: 09/21/17 09:56 Dose: 15 mg Colestipol HCl (Colestid) 3 gm PO DAILY@1600 [facility] Last Admin: 09/20/17 17:59 Dose: 3 gm Colestipol HCl (Colestid) 4 gm PO DAILY [facility] Last Admin: 09/21/17 07:47 Dose: 4 gm Cyclobenzaprine HCl (Flexeril) 10 mg PO BIDP PRN PRN Reason: Spasms Dicyclomine HCl (Dicyclomine) 20 mg PO BID [facility] Last Admin: 09/21/17 10:00 Dose: 20 mg Docusate Sodium (Colace) 100 mg PO BID [facility] Last Admin: 09/21/17 09:59 Dose: 100 mg Duloxetine HCl (Cymbalta) 60 mg PO BID [facility] Last Admin: 09/21/17 09:56 Dose: 60 mg Estradiol (Climara) 0.05 mg TD [place]@0900 [facility] Last Admin: 09/21/17 07:49 Dose: 0.05 mg Guaifenesin (Robitussin Dm) 10 ml PO Q4HP PRN PRN Reason: Cough Last Admin: 09/21/17 09:55 Dose: 10 ml Levofloxacin (Levaquin) 750 mg in 150 mls @ 100 mls/hr IV DAILY [facility] Last Admin: 09/21/17 10:01 Dose: 100 mls/hr Iron Carb/Multivit/[place]/Folic Acid (Multivitamin W/Minerals) 1 tab PO DAILY [facility] Last Admin: 09/21/17 09:58 Dose: 1 tab Levothyroxine Sodium (Synthroid) 200 mcg PO ACB [facility] Last Admin: 09/21/17 09:55 Dose: 200 mcg [place] Carbonate ([place] Carbonate) 300 mg PO DAILY [facility] Last Admin: 09/21/17 09:55 Dose: 300 mg [place] Carbonate ([place] Carbonate) 600 mg PO [facility] Last Admin: 09/20/17 20:32 Dose: 600 mg Losartan Potassium (Cozaar) 25 mg PO DAILY [facility] Last Admin: 09/21/17 09:56 Dose: 25 mg Methylprednisolone Sodium Succinate (Solu-Medrol) 40 mg IV Q6 [facility] Last Admin: 09/21/17 05:42 Dose: 40 mg Ondansetron HCl (Zofran) 4 mg IV Q4-6HP PRN PRN Reason: Nausea And Vomiting Pantoprazole Sodium (Protonix) 40 mg PO BID [facility] Last Admin: 09/21/17 09:58 Dose: 40 mg Budesonide/Formoterol 160-4.5 Mcg Inhaler 1 dose INH BID [facility] Last Admin: 09/21/17 10:01 Dose: Not Given Pramipexole Dihydrochloride (Mirapex) 0.25 mg PO HSP PRN PRN Reason: RESTLESS LEGS SYNDROME Last Admin: 09/20/17 20:35 Dose: 0.25 mg Senna/Docusate Sodium (Senna Plus Tablet) 1 tab PO [facility] Last Admin: 09/20/17 20:32 Dose: 1 tab Simethicone (Mylicon) 160 mg CHEWED BIDP PRN PRN Reason: GAS Sodium Chloride (Saline Flush) 10 ml IV Q8 [facility] Last Admin: 09/21/17 05:42 Dose: 10 ml Throat Lozenges (Cepacol) 1 lozenge PO PRN PRN PRN Reason: Sore Throat Trazodone HCl (Desyrel) 100 mg PO [facility] Last Admin: 09/20/17 23:28 Dose: 100 mg Vitamin D (Vitamin D3) 5,000 unit PO DAILY [facility] Last Admin: 09/21/17 09:58 Dose: 5,000 unit Medical - PN: A/P - Time Spent With Patient Total time spent is greater than 50% in coordination of care (as documented) at patient's floor/unit and/or counseling patient: - Narrative A/P Narrative: A/P Hemoptysis with pulmonary infiltrates-inflammatory which is infectious continue antibiotics steroids and duo nebs. Appreciate pulmonary help. Serologies pending, sputum culture is positive for haemophilus influenzae, ampicillin sensitive. Patient is on levofloxacin will switch to Augmentin at discharge Because cytosis trending down secondary to bronchitis versus pneumonia GERD-continue PPIs Restless leg syndrome continue pramipexole COPD/asthma exacerbation-on steroids and duo nebs patient's respiration is improving, repeat chest x-ray today, stable respiration clinically improving slowly Hypertension-continue atenolol, continue losartan Bipolar disorder-patient is on lithium, level is therapeutic Hypothyroidism-continue levothyroxine Patient is full code Prophylaxis DVT-sequential compressions as the hemoptysis is acute. Xfer to med surg status Medical - PN: Qual - VTE Deep Vein Thrombosis/Pulmonary Embolism Present on Admission: No
--- NOTE | 2017-09-21 16:11 | XRay Report ---
HISTORY: Reason for Exam:hemoptysis/ pna follow up FINDINGS: The masslike infiltrate seen posteriorly in the right upper lobe on the CT dated 09/19/17 has shrank and now difficult to visualize. This is probably an inflammatory process or focal pulmonary hemorrhage. There is a persistent band of scar or discoid atelectasis in the inferior segment of the lingula. Remainder of the lungs are clear. The heart size and pulmonary vasculature are normal. No pleural effusion is present. IMPRESSION: Improving right upper lobe infiltrate Interpreted and Authenticated by: Rasheed Grier 09/21/17
[2017-09-21] MEDS: ATORVASTATIN 20 MG TABLET PO SCH (21:10)
[2017-09-21] MEDS: PRAMIPEXOLE 0.25 MG TABLET PO PRN (21:11)
[2017-09-21] MEDS: SENNOSIDES/DOCUSATE SODIUM 1 TAB TABLET PO SCH (21:11)
[2017-09-21] MEDS: traZODone HCL 50 MG TABLET PO SCH (23:22)
[2017-09-22] MEDS: IPRATROPIUM/ALBUTEROL 3 ML AMPUL.NEB NEB SCH ×3 (03:43→12:02)
[2017-09-22] MEDS: guaiFENesin/DEXTROMETHORPHAN ORAL SOL PO PRN (03:44)
[2017-09-22] MEDS: methylPREDNISolone SOD SUCC 40 MG/ML VIAL IV SCH (06:03)
[2017-09-22] MEDS: 0.9 % SODIUM CHLORIDE 10 ML SYRINGE IV SCH (06:03)
[2017-09-22 06:22] LABS: Mean Cell Volume 84.2 fL (80.0-100.0); Mean Corpuscular HGB Conc 32.8 g/dL (31.0-36.0); Mean Corpuscular Hemoglobin 27.6 pg (26.0-34.0); Platelet Count 357 K/mcL (140-440); RBC 4.28 M/mcL (4.00-5.20); Red Cell Distribution Width 17.2 % (11.5-14.5)
[2017-09-22] MEDS: LEVOTHYROXINE 100 MCG TABLET PO SCH (06:34)
[2017-09-22 06:40] LABS: ALT/SGPT 26 U/l (0-40); Albumin 3.7 gm/dL (3.2-5.2); Albumin/Globulin Ratio 1.1 (1.0-2.3); Alkaline Phosphatase 120 U/L (39-117); Bilirubin,Direct < 0.2 mg/dL (0.0-0.3); Blood Urea Nitrogen 17 mg/dl (6-20); Gamma Glutamyl Transpeptidase 22 U/L (5-36); Uric Acid 3.4 mg/dL (2.5-8.0)
[2017-09-22] MEDS: POLYVINYL ALCOHOL OPHTH DROPS 15ML BOTTLE OU PRN (07:09)
[2017-09-22 07:28] LABS: Anisocytosis 1+ (NONE SEEN); Band Neutrophils % 1 % (0-10); Lymphocytes % 6 % (15-49); Monocytes % (Manual) 2 % (1-12); Platelet Estimate B (NORMAL); RBC Morphology ABNORM (NORMAL); Segmented Neutrophils % 91 % (38-78)
[2017-09-22] MEDS: BUDESONIDE 0.5 MG/2 ML AMPUL.NEB NEB SCH (07:36)
[2017-09-22] MEDS: COLESTIPOLL 1 GM TABLET PO SCH (07:57)
--- NOTE | 2017-09-22 08:03 | Consultation ---
DATE OF CONSULTATION: 09/19/2017 HISTORY OF PRESENT ILLNESS: The patient is a 57-year-old female presented to the Emergency Room earlier today with hemoptysis. Her story is that yesterday morning she got up feeling unwell. She coughed up some streaks and globs of blood yesterday but chose to go to work in any case. She works at [employer] and consulted with the nurse there that said, if she did not cough up much more in the way of blood it was probably okay. She finished her shift at [employer] and had an evening with increasing cough and sense of shortness of breath. This morning she woke up around 5:00 a.m. with more difficulty and coughing up some more lumpy looking blood and presented to the Emergency Room for further evaluation. In the Emergency Room, she was found to have an infiltrate as well as some other foci of change on CT scan of the chest, but no pulmonary embolus. Bilateral ultrasounds of the lower extremities have been unrevealing for deep vein thrombosis. She had a white count of 15,000 and was initiated on antibiotic therapy. She does have an almost [id number] tobacco use history, having quit some time ago but was on therapy for COPD. She denies previously coughing up blood. She states she has had some sense of chills but no fevers. There is no unusual exposure in the home. She did have a left total knee in April, but has been up and around and working in that regard. She does report some chest discomforts and her doctors have told her that it is related to chest wall issues. See physical exam below. She indicates that she has significant gastroesophageal reflux disease and has been taking some acid suppression therapy but still having breakthrough discomfort. She sees Dr. Goodwin and understands that there is no serious issue after endoscopy of her esophagus in the last year or so. She is educated regarding reflux and the need to suppress acid, elevate head of bed, empty stomach at bedtime and weight reduction to try and improve that lest she have reflux and aspiration on an occasional episode that might lead to destruction of her lungs. Of interest, the patient also reports a history of sleep apnea diagnosed when she was in [place], but discontinued at some point in time years ago now when [facility] not [facility]. She did 20 years in the [employer] in [employer]. No other aurora or industrial exposures. REVIEW OF SYSTEMS: Otherwise negative except as recorded above. PHYSICAL EXAMINATION: GENERAL: The patient is a pleasant but in mild distress 57-year-old female coughing with frequency during the course of the history and physical examination but in no acute distress. She reports some relief with her breathing since the institution of her nebulized therapy in the hospital. HEAD: Atraumatic and normocephalic. NECK: Supple. She has some discomfort on palpation of the right neck, but no mass or other palpable abnormality. LUNGS: Decreased breath sounds but they are remarkably clear. No wheeze, rattle or rhonchi at the time of my examination. CHEST: Exam of the chest does show costosternal junction tenderness, which reproduces her discomfort. HEART: Difficult to hear in this thick chest, but S1, S2. No apparent murmur, gallop jugular venous distention or dependent edema. ABDOMEN: Obese. Bowel sounds are present decreased. No apparent mass or organomegaly. BONES/JOINTS/EXTREMITIES: There is a 6-month-old left total knee scar, but no calf tenderness or other changes of significance. NEUROLOGIC: Grossly nonfocal. LABORATORY DATA: (Collected thus far in patient's care) INR 1.2. White count 15.9, hemoglobin 11.9, platelet count 274,000. The patient has been on aspirin therapy. Sed rate is elevated at 48. Comprehensive metabolic survey is with elevated glucose, but not otherwise significantly abnormal. Troponin is negative on one determination. ESR and CRP are both elevated. Urinalysis has positive leukocyte esterase. A panel of collagen vascular disease test has been ordered as well as serologies for mycoplasma and urine strep pneumonia and legionella is pending. IMPRESSION: Cough, pulmonary infiltrate, hemoptysis-etiology not precisely defined. It is prudent to hold aspirin at this time. It is appropriate to institute a regimen for exacerbation of chronic obstructive pulmonary disease, prudent to reinvestigate her sleep apnea question at an appropriate interval. It is prudent to institute a rigorous antireflux regimen and education. The most common cause of hemoptysis is bronchitis. Hopefully therapy with antibiotics and routine COPD exacerbation regimen will improve her situation. Should she develop some ongoing hemoptysis an aerosol of racemic epinephrine to activate her platelets might be useful. If she should have more significant bleeding, please call me to consider a bronchoscopy to identify bleeding site, or if need be, consider support and transfer. Thank you for the opportunity to participate in a very interesting case. Follow-up radiographic evaluation once the infiltrates from blood have cleared is appropriate as well. Should you have questions, please feel free to call. KJP:[email or web address] Job ID: [id number] Doc ID: [id number] José Miguel Moreno MD
--- NOTE | 2017-09-22 09:20 | Discharge Summary ---
Medical - DS: Prov Patient information: Note initiated : 09/22/17 at 9:18 am Service Date, if different from initiated Date: [] Patient: Saundra Cardona 57 y/o F admitted on 09/19/17 for Cold/Flu. Chief Complaint: [] Date of admission: 09/19/17 10:11 Discharge date: 09/22/17 Primary care physician: Amanda Chavez Consults: 09/19/17 09:37 Consult to Physician [CONS] Stat Comment: Consulting Provider: Tao Moreno Reason For Exam: Physician to Consult 09/19/17 09:43 Consult to Physician [CONS] Stat Comment: Consulting Provider: José Miguel Smith Reason For Exam: Physician to Consult Discharging clinician: Haim Lamb Medical - DS: Meds - Discharge Medications Prescriptions: Levofloxacin [Levaquin] 750 mg PO DAILY #4 tab predniSONE [Prednisone] [facility] [place] [place] Active and Home Medications: Home Medications Albuterol Sulfate [Ventolin] 1 puff INH Q4HP PRN 03/10/17 [History Confirmed Last Taken Unknown] Atenolol [Tenormin] 50 mg PO DAILY 03/10/17 [History Confirmed 09/19/17 Last Taken 04/23/17] Budesonide/Formoterol Fumarate [Symbicort 160-4.5 Mcg Inhaler] 1 puff INH BID [History Confirmed 09/19/17 Last Taken Unknown] Colestipoll [Colestid] 3 gm PO DAILY@1600 03/10/17 [History Confirmed 09/19/17 Last Taken 04/22/17] Colestipoll [Colestid] 4 gm PO DAILY 03/10/17 [History Confirmed 09/19/17 Last Taken 04/22/17] Cyclobenzaprine [Flexeril] 10 mg PO BIDP PRN 03/10/17 [History Confirmed Last Taken 04/22/17] DULoxetine HCL [Cymbalta] 60 mg PO BID 03/10/17 [History Confirmed 09/19/17 Last Taken 04/22/17] Dicyclomine 20 mg PO BID 03/10/17 [History Confirmed 09/19/17 Last Taken ] Estradiol [Alina] 1 each TD STEWART@0900 03/10/17 [History Confirmed 09/19/17 Last Taken 04/20/17] Etodolac [Lodine] 500 mg PO BID 03/10/17 [History Confirmed 09/19/17 Last Taken 04/17/17] [place] Carbonate [Lithobid] 300 mg PO DAILY 03/10/17 [History Confirmed Last Taken 04/23/17] [place] Carbonate [Lithobid] 600 mg PO HS 03/10/17 [History Confirmed 09/19/17 Last Taken 04/22/17] Polyvinyl Alcohol/Povidone/Pf [Refresh Classic Eye Drops] 1 drop OU DAILYP PRN 03/10/17 [History Confirmed 09/19/17 Last Taken 04/22/17] Pramipexole [Mirapex] 0.5 mg PO HSP PRN 03/10/17 [History Confirmed 09/19/17 Last Taken 04/22/17] Rosuvastatin Calcium [Crestor] 40 mg PO HS 03/10/17 [History Confirmed 09/19/17 Last Taken 04/22/17] busPIRone [Buspar] 15 mg PO BID 03/10/17 [History Confirmed 09/19/17 Last Taken 04/22/17] Pantoprazole [Protonix] 40 mg PO BID 03/15/17 [History Confirmed 09/19/17 Last Taken 04/22/17] Ipratropium/Albuterol [Duoneb] 3 ml NEB TIDP PRN 04/18/17 [History Confirmed Last Taken Unknown] Levothyroxine [Synthroid] 200 mcg PO ACB 04/18/17 [History Confirmed 09/19/17 Last Taken 04/22/17] Multivit,Ther Iron,Ca,FA & Min [Multivitamin W/Minerals] 1 tab PO DAILY [History Confirmed 09/19/17 Last Taken 04/22/17] Simethicone [Anti-Gas] 180 mg PO BID PRN 04/18/17 [History Confirmed 09/19/17 Last Taken 04/21/17] Vitamin D3 5,000 unit PO DAILY 04/18/17 [History Confirmed 09/19/17 Last Taken Unknown] traZODone HCL [Trazodone HCl] 100 mg PO HS 04/18/17 [History Confirmed 09/19/17 Last Taken Unknown] Aspirin 325 mg PO BID #30 tab 04/24/17 [Rx Confirmed 09/19/17 Last Taken Unknown ] Losartan [Cozaar] 25 mg PO DAILY 09/19/17 [History Confirmed 09/19/17 Last Taken Unknown] Medical - DS: Hosp Hospital course: Ms. Cardona is a 57 year old F with h/o COPD, anxiety, woke up SOB yesterday morning and srtarted coughing bloody sputum aaround 7:30 in the morning. She had another spell of coughing episode associated with bloody expectorate around 11 AM. over the course of the day patient progressed with worsening shortness of breath. she denied associated fever but endorses to shaking chills. She denies eight loss/rash/joint pain and swelling or bloody stool. She is up-to- date on her cancer screening. She denies sick contacts or recent travel or exposure to birds. She denies high -risk sexual behavior. Denies prior history of HIV or substance abuse. Initial workup in the ER was significant with a CT chest revealing multiple foci of parenchymal hemorrhage with a differential including inflammatory versus infectious etiology. White count is over 15,000. subsequently hospitalist service was consulted. Patient received first dose of antibiotics. At the time of evaluation patient is alert and oriented. She appears fairly distressed and anxious from shortness of breath. She experiencing frequent spells of coughing but nonproductive over the last few hours. She endorses history of smoking but quit in 2004. other than that she denies loody stool, bloody urine, joint swelling or rash glandular swelling. She denies headache photophobia joint pain or abnormal lower extremity sensations. 09/20 Patient seen and examined, doing well, still has cough but not much of bloody sputum. Pulmonary consult appreciated. Patient on steroids now continue duo nebs. Patient on levofloxacin for antibiotic coverage. Workup for autoimmune disease pending C3-C4 is normal so doubt if lupus is the underlying etiology. Patient does have history of COPD and asthma this morning however notes that the breathing is much better compared to yesterday. Urinalysis does not show significant hematuria or proteinuria 09/21 Patient seen and examined, no acute overnight events, cough is still present but no significant hemoptysis reported. Workup is negative so far. This morning after her walk she became short of breath. She also has prolonged expiratory phase and some wheezing on today's exam. Chest x-ray was ordered. She continues to be on levofloxacin. Plan of care reviewed with pulmonary. She is on duo nebs and steroids. Clinically she is improving. Autoimmune workup is still pending. Plan to continue current management anticipate discharge tomorrow if breathing is better 4/16 Seen and examined no acute overnight events, her breathing is better she has no acute complaints. Chest x-ray reviewed done yesterday shows improved infiltrate. She is ambulating without any issues and willing to go home today. She will be discharged home with oral prednisone for 5 more days and oral levofloxacin for 4 more days. The patient seems to be on aspirin 325 twice a day as well as etodolac both of which are anti-inflammatory medications. I am not sure of the underlying rationally of using aspirin 325 twice a day. GIven recent hemoptysis, I will hold this medication at dischage. I would advise the patient's PCP to review the patient's medication list and determine if this high dose of aspirin is indicated specially in light of other anti-inflammatory drugs which have been used. Hemoptysis with pulmonary infiltrates-inflammatory which is infectious continue antibiotics steroids and duo nebs. Appreciate pulmonary help. Serologies pending, sputum culture is positive for haemophilus influenzae, ampicillin sensitive. \Pt will continue with levoflox aon discharge, as she has reponded well to treatment, she will follow up with Dr Smith as outpatient. She still has some serology tests which have not truned around yet, to be followed up by PCP and Pulmonary clinic. Discharge diagnosis: PNA/ Bronchitis - Time Spent with Patient Total time spent providing and/or coordinating discharge services: Less than 30 minutes Medical - DS: Exam - Constitutional Vitals: Vital Signs Temp Pulse Pulse Pulse Resp BP BP 09/22/17 08:00 98.5 F 99 H 20 125/71 09/22/17 07:38 90 16 09/22/17 04:00 98.0 F 90 20 154/80 09/22/17 00:00 98.8 F 90 20 114/68 09/21/17 23:26 87 16 09/21/17 19:46 85 16 09/21/17 15:10 80 16 09/21/17 15:05 04/15/18 15:00 97.3 F 18 119/66 09/21/17 11:32 104 H 20 09/21/17 11:00 98.9 F 20 144/82 Pulse Ox 09/22/17 08:00 99 09/22/17 07:38 09/22/17 04:00 98 09/22/17 00:00 98 09/21/17 23:26 09/21/17 19:46 09/21/17 15:10 09/21/17 15:05 98 09/21/17 15:00 98 09/21/17 11:32 09/21/17 11:00 98 Intake and Output 09/21/17 09/22/17 09/22/17 21:59 05:59 13:59 Intake Total 1280 / 1280 500 / 500 Balance 1280 / 1280 500 / 500 Intake: Oral 1280 / 1280 500 / 500 Other: Meal Dinner Percent of Meal Consumed 100% Feeding Ability Independent # Voids 1 2 # Bowel Movements 1 Weight 218 lb 12.8 oz Additional comments: Constitutional; Afebrile, cooperative, alert, not in distress. Eyes- No icterus, , No periorbital swelling Ears- Ext ear normal, hearing normal to conversation. Neck- Midline trachea, supple Respiratory system: Air Entry equal on both sides, No crackles or wheezing, no rhonchi. CVS- Rate rhythm regular, S1,S2 heard, no gallop, no rub. Abdomen- Soft nontender abdomen, no organomegaly, no tenderness, no guarding or rigidity, PACKAGE CHECKER- AOOx3, moving all extremities, no gross focal deficit noted. Medical - DS: Data Procedures and tests throughout hospitalization: Chest CT IMPRESSION: Small masslike infiltrate posteriorly in the right upper lobe. This is more likely due to inflammation or pulmonary hemorrhage rather than a rapidly growing malignancy. Collagen vascular disease such as Hemanth's granulomatosis is also a consideration. Small ill-defined densities in the right upper lobe and medially in the superior segment of lingula which are also more likely due to an inflammatory reaction or pulmonary hemorrhage as opposed to malignancy Stable granuloma in the right middle lobe Chest X ray IMPRESSION: Improving right upper lobe infiltrate Labs on day of discharge: Labs from last 24 hours 09/22/17 09/22/17 04:44 04:44 WBC 20.4 H RBC 4.28 Hgb 11.8 L Hct 36.0 MCV 84.2 MCH 27.6 MCHC 32.8 RDW 17.2 H Plt Count 357 MPV 7.5 Total Counted 100 Seg Neutrophils % 91 H Band Neutrophils % 1 Lymphocytes % 6 L Monocytes % (Manual) 2 Platelet Estimate B RBC Morphology Abnorm A Anisocytosis 1+ A Sodium 139 Potassium 3.8 Chloride 101 Carbon Dioxide 24 Anion Gap 14.0 BUN 17 Creatinine 0.8 GFR Calculation 81 Glucose 187 H Uric Acid 3.4 Calcium 9.5 Phosphorus 3.4 Magnesium 2.2 Total Bilirubin 0.3 Direct Bilirubin < 0.2 GGT 22 AST 17 ALT 26 Alkaline Phosphatase 120 H Lactate Dehydrogenase 267 H Total Protein 7.0 Albumin 3.7 Globulin 3.3 Albumin/Globulin Ratio 1.1 Triglycerides 74 Preliminary micro results at discharge 09/19/17 08:15 Blood Culture - Preliminary Blood 09/19/17 07:45 Blood Culture - Preliminary Blood 09/20/17 20:02 Sputum Culture - Preliminary Sputum - Expectorated Medical - DS: A/P - Patient/Caregiver Discharge Instructions Activity: increase activity as tolerated Diet: Regular Diet Additional Instructions: Follow-up with PCP in 7 days Follow-up with Dr. Smith pulmonary in 1-2 weeks. Take antibiotics for 4 more days, take prednisone 40 mg once a day with food in the morning for another 5 days I have stopped the aspirin 325 mg twice a day for now. This medication can increase the risk of bleeding. I am not sure why you are on this medication please talk to your primary care provider with regards to use of this medication as well as the dose. Go to the emergency room if symptoms worsen, you have increased bleeding with cough as well as any chest pain shortness of breath or any other acute concerning symptom. There are some tests that are still pending, please make sure that he reviewed the results with Dr. Smith or your primary care provider when he seen him in the clinic Prescriptions: Levofloxacin [Levaquin] 750 mg PO DAILY #4 tab predniSONE [Prednisone] 40 mg PO [facility] #10 tab - Follow up Plan Follow up with: Amanda Chavez MD [Primary Care Provider] - José Miguel Smith MD [Physician] - Disposition: Home, Self-Care Prognosis: Fair Rehab Potential: Fair I certify that the patient requires SNF services: No Overall status at discharge: patient is progressing back to baseline Medical - DS: Qual - VTE Deep Vein Thrombosis/Pulmonary Embolism Present on Admission: No
[2017-09-22] MEDS: VITAMIN D3 5,000 UNIT CAPSULE PO SCH (10:12)
[2017-09-22] MEDS: ATENOLOL 50 MG TABLET PO SCH (10:12)
[2017-09-22] MEDS: MULTIVIT,THER IRON,CA,FA & MIN 1 TABLET PO SCH (10:12)
[2017-09-22] MEDS: DICYCLOMINE 20 MG TABLET PO SCH (10:12)
[2017-09-22] MEDS: LITHIUM CARBONATE 150 MG CAPSULE PO SCH (10:12)
[2017-09-22] MEDS: busPIRone 15 MG TABLET PO SCH (10:13)
[2017-09-22] MEDS: DOCUSATE SODIUM 100 MG CAPSULE PO SCH (10:13)
[2017-09-22] MEDS: ASPIRIN 325 MG ENTERIC COATED TABLET PO SCH (10:13)
[2017-09-22] MEDS: PANTOPRAZOLE 40 MG TABLET PO SCH (10:13)
[2017-09-22] MEDS: LOSARTAN 25 MG TABLET PO SCH (10:13)
[2017-09-22] MEDS: LEVOFLOXACIN 750 MG/150 ML BAG IV SCH (10:13)
[2017-09-22] MEDS: DULoxetine 30 MG CAPSULE PO SCH (10:13)
[2017-09-22] MEDS ORDERED: LEVOFLOXACIN 750 MG TABLET PO ONE (10:43)
[2017-09-24 15:34] LABS: Anti-Glomerular Basement Memb < 1.0 AI (<1.0)
[2017-09-26 12:00] LABS: ANCA SCREEN NEGATIVE
== END 2017-09-22 14:15 | disposition home or self-care (01) | DRG 194 ==
LOC: ED 07:14 → ICU 10:05 → MEDSUR 09-20 15:21
PROVIDERS: ADMIT Internal Medicine; ATTEND Internal Medicine

== ENCOUNTER 2020-01-07 19:09 | Inpatient (IN) ==
[2020-01-07] MEDS ORDERED: IOPAMIDOL 100 ML BOTTLE IV ONE (19:10)
[2020-01-07] MEDS ORDERED: ONDANSETRON 4 MG/2 ML VIAL IV ONE (19:24)
[2020-01-07] MEDS ORDERED: 0.9 % SODIUM CHLORIDE 1,000 ML IV ONE (19:24)
[2020-01-07] MEDS ORDERED: LORazepam 2 MG/ML VIAL IV ONE (19:24)
[2020-01-07] MEDS: HYDROmorphone 0.5 MG/0.5 ML SYRINGE IV PRN ×2 (20:42→21:53)
[2020-01-07 20:54] LABS: Basophils # (Auto) 0.04 K/mcL (0.00-0.30); Basophils % (Auto) 0.4 % (0.0-2.0); Eosinophils # (Auto) 0.61 K/mcL (0.00-0.70); Granulocytes % (Auto) 67.4 % (38.0-78.0); Hematocrit 35.7 % (34.1-44.9); Hemoglobin 11.9 g/dL (11.2-15.7); Lymphocytes # (Auto) 1.87 K/mcL (1.50-4.80); Lymphocytes % (Auto) 18.2 % (15.5-49.0); Mean Corpuscular HGB Conc 33.3 g/dL (31.0-36.0); Mean Platelet Volume 9.5 fL (7.4-10.4); Monocytes # (Auto) 0.82 K/mcL (0.10-0.90); Platelet Count 207 K/mcL (140-440); RBC 3.84 M/mcL (3.59-5.38); Red Cell Distribution Width 12.3 % (11.5-14.5); WBC 10.3 K/mcL (4.50-11.00)
[2020-01-07 21:15] LABS: ALT/SGPT 15 U/l (0-40); AST/SGOT 22 U/l (0-37); Albumin 3.4 gm/dL (3.2-5.2); Albumin/Globulin Ratio 1.1 (1.0-2.3); Alkaline Phosphatase 102 U/L (39-117); Bilirubin,Total 0.4 mg/dL (0.0-1.0); Blood Urea Nitrogen 15 mg/dl (8-23); Carbon Dioxide 26 mmol/L (22-30); Chloride 100 mmol/L (96-108); Globulin 3.1 gm/dL (2.2-3.7); Glomerular Filtration Rate 98; Glucose 108 mg/dL (70-105)
[2020-01-07] MEDS ORDERED: ONDANSETRON 4 MG/2 ML VIAL IV PRN (23:22)
[2020-01-07] MEDS ORDERED: ALBUTEROL SULFATE 2.5 MG/3 ML NEBULIZER NEB PRN (23:22)
[2020-01-07] MEDS ORDERED: ACETAMINOPHEN 325 MG TABLET PO PRN (23:22)
--- NOTE | 2020-01-07 23:28 | Emergency Department Note ---
Abdominal Pain HPI General Chief Complaint: Abdominal Pain Stated Complaint: abdominal pain Time Seen by Provider: 01/07/20 19:24 Source: patient Mode of arrival: ambulatory Limitations: no limitations History of Present Illness HPI Narrative: Narrative: 59-year-old female comes in complaining of severe abdominal pain centered around a previously known ventral hernia. She reports pain is 10 out of 10 and is writhing on the bed. She has a temperature of 100. She had a knee replaced/revision done up in [place] by Dr. Salazar 3 days ago. That is actually healing up well and she has only a small amount of pain from that. She has had multiple belly surgeries in the past. Some nausea no vomiting. No respiratory distress Related Data Home Medications Medication Instructions Recorded Confirmed DULoxetine HCL 1 cap PO BID 10/06/18 01/08/20 [place] Carbonate 300 mg/day PO QAM 10/06/18 01/08/20 [place] Carbonate 600 mg PO HS 10/06/18 01/08/20 albuterol sulfate 2 puff IH QID 10/06/18 01/07/20 bisoprolol fumarate 1 tab PO DAILY 10/06/18 01/07/20 cholecalciferol (vitamin D3) 5,000 unit PO DAILY 10/06/18 01/07/20 colestipol 2 gm PO BID PRN 10/06/18 01/07/20 cyclobenzaprine 10 mg PO BIDP PRN 10/06/18 01/07/20 dicyclomine 20 mg PO BIDP PRN 10/06/18 01/07/20 ipratropium-albuterol 3 ml NEB Q4HP PRN 10/06/18 01/07/20 pantoprazole 40 mg PO QAMAC 10/06/18 01/07/20 rosuvastatin 40 mg PO HS 10/06/18 01/08/20 levothyroxine 200 mcg capsule 200 mcg PO QDAY 10/19/18 01/07/20 CPAP #1 ea 02/22/19 01/07/20 imipramine HCl 10 mg tablet 10 mg PO ONCE tab 02/22/19 01/07/20 simethicone 80 mg tablet 160 mg PO QIDP PRN 02/22/19 01/07/20 nasal compound #1 ea 03/30/19 01/07/20 Mirapex 1 mg PO BID 11/10/19 01/08/20 buspirone 7.5 mg tablet 5 mg PO TID tab 11/10/19 01/07/20 furosemide 20 mg tablet 20 mg PO QAM 11/10/19 01/07/20 gabapentin 200 mg PO Q8 01/07/20 01/07/20 naproxen 250 mg PO BID 01/07/20 01/07/20 oxycodone 5 - 10 mg PO Q4HP PRN 01/07/20 01/07/20 trazodone 150 mg PO HS 01/08/20 01/08/20 Allergies Allergy/AdvReac Type Severity Reaction Status Date / Time fexofenadine [From KAREL] Allergy Intermediate RASH Verified 07/27/19 09:44 rofecoxib [From VIOXX] Allergy Intermediate RASH Verified 07/27/19 09:44 NARCOTICS AdvReac Mild HALLUCINATE Uncoded 03/23/19 11:54 Review of Systems ROS ROS Narrative: Narrative: All systems ED: reviewed and negative except as stated. PFS Narrative Patient History Narrative: Narrative: Medical/Surgical/Family History All Active Problems Epistaxis (Acute) Anxiety (Acute) Sprain of foot, right (Acute) Itching with irritation (Acute) Pruritus (Acute) Lumbar back pain (Acute) Device in situ (Acute) Incarcerated hernia (Acute) Numbness of left hand (Acute) Left arm pain (Acute) RLS (restless legs syndrome) (Chronic) Tenosynovitis, de [place]erv[place] (Acute) DC on CPAP (Chronic) DC (obstructive sleep apnea) (Chronic) COPD (chronic obstructive pulmonary disease) (Chronic) Wasp sting (Acute) Allergic reaction to insect bite (Acute) Cracked skin on feet (Acute) S/P TKR (total knee replacement) (Chronic) Lumbago (Acute) Orthostatic hypotension (Acute) Dizziness (Acute) Shortness of breath (Acute) Hyperventilation (Acute) Influenza B (Acute) Anemia (Acute) Muscle pain (Acute) Hemoptysis (Acute) COPD exacerbation (Acute) Hemoptysis (Acute) Costalchondritis (Acute) Medical History Anxiety (Chronic) Arthritis (Chronic) Asthma (Chronic) Depression (Chronic) GERD (gastroesophageal reflux disease) (Chronic) Hernia (Chronic) High cholesterol (Chronic) Hypertension (Chronic) Lumbago (Acute) DC (obstructive sleep apnea) (Chronic) DC (obstructive sleep apnea) (Chronic) DC on CPAP (Chronic) Thyroid disease (Chronic) UTI (urinary tract infection) (Resolved) Surgical History Cholecystectomy planned (Chronic) H/O: hysterectomy (Chronic) History of appendectomy (Chronic) S/P hernia surgery (Chronic) S/P left knee surgery (Chronic) S/P right knee surgery (Chronic) S/P TKR (total knee replacement) (Chronic) Family History Father , renal failure No problems noted. Brother No problems noted. Brother 3-vessel coronary artery disease Sister Cervical cancer Social History Smoking Status: Former smoker Alcohol Intake Frequency: a few times a month Substance Use: does not use Exam Narrative Narrative: Narrative: She is quite active writhing in pain on the bed. Normocephalic atraumatic. Conjunctive are clear sclerae white nonicteric. No nasal discharge or congestion. Oropharynx pink and moist. Neck is supple without lymphadenopathy or thyromegaly. There is no dysarthria. She is a reasonable historian. Is regular rate and rhythm no murmur appreciated. Lungs clear to auscultation bilaterally without wheezes rales rhonchi or respiratory distress. Abdomen shows significant ventral hernia however I am unable to reduce it manually. It is very tender but I do not see any redness nor do I feel fluctuance or crepitus. Otherwise abdomen is nontender. She is wearing hose bilateral legs her left leg is bandaged-this is where she had a recent knee replacement/revision. General Limitations: no limitations Course Vital Signs Vital signs: Vital Signs Temperature 100.0 F H 01/07/20 19:10 Pulse Rate 84 01/07/20 19:10 Respiratory Rate 17 01/07/20 19:10 Blood Pressure 150/79 01/07/20 19:10 Temperature 97.9 F 01/08/20 08:00 Pulse Rate 82 01/08/20 08:00 Respiratory Rate 18 01/08/20 08:00 Blood Pressure 122/72 01/08/20 08:00 Pulse Oximetry (%) 96 01/08/20 08:00 MDM MDM Narrative Medical decision making narrative: Narrative: Concern for incarcerated hernia versus other intra-abdominal pathology. Ordered CT scan IV fluids and laboratory. Initially try to avoid giving her narcotics as she stated that she did not want them because she did not like the way they made her feel. Gave her Ativan instead Could not control her pain and get her to hold still for CT scan with just Ativan so pain medicine given as well as Tylenol Laboratory and CT scan of the abdomen pelvis does not show evidence of obstruction or inflammation. There is a loop of bowel however contained in the abdominal hernia which is likely the cause of her pain and discomfort-an incarcerated hernia without evidence of obstruction. On reexamination she is feeling much better and in fact is sleeping Discussed the situation with Dr. Akshat Avila general surgeon. He agreed to accept the patient for further care and evaluation in the hospital. He plans to fix this hernia tomorrow. Discussed sending her home but this is an incarcerated hernia and he felt that this would likely recur and become a more significant surgical emergency if it is not fixed on an urgent basis. I wrote transition orders. I also discussed the situation with the patient and she was agreeable with the plan Lab Data Lab results reviewed: Yes I reviewed the patient's lab results. Result diagrams: 01/07/20 19:55 01/07/20 19:55 Labs: Lab Results 01/07/20 01/07/20 01/07/20 Range/Units 19:55 19:55 19:55 WBC 10.3 (4.50-11.00) K/mcL RBC 3.84 (3.59-5.38) M/mcL Hgb 11.9 (11.2-15.7) g/dL Hct 35.7 (34.1-44.9) % MCV 93.0 (80.0-100.0) fL MCH 31.0 (26.0-34.0) pg MCHC 33.3 (31.0-36.0) g/dL RDW 12.3 (11.5-14.5) % Plt Count 207 (140-440) K/mcL MPV 9.5 (7.4-10.4) fL Gran % 67.4 (38.0-78.0) % Lymph % (Auto) 18.2 (15.5-49.0) % [place] % (Auto) 8.0 (1.0-12.0) % Eos % (Auto) 6.0 (0.0-7.0) % Baso % (Auto) 0.4 (0.0-2.0) % Gran # 6.91 (1.80-8.00) K/mcL Lymph # (Auto) 1.87 (1.50-4.80) K/mcL [place] # (Auto) 0.82 (0.10-0.90) K/mcL Eos # (Auto) 0.61 (0.00-0.70) K/mcL Baso # (Auto) 0.04 (0.00-0.30) K/mcL VBG Lactic Acid 0.9 (0.5-2.0) mmol/L Sodium 140 (133-145) mmol/L Potassium 3.5 (3.3-5.1) mmol/L Chloride 100 (96-108) mmol/L Carbon Dioxide 26 (22-30) mmol/L Anion Gap 14.0 (8-16) BUN 15 (8-23) mg/dl Creatinine 0.6 (0.6-1.1) mg/dl GFR Calculation 98 Glucose 108 H (70-105) mg/dL Calcium 9.0 (8.6-10.4) mg/dl Total Bilirubin 0.4 (0.0-1.0) mg/dL AST 22 (0-37) U/l ALT 15 (0-40) U/l Alkaline Phosphatase 102 (39-117) U/L Total Protein 6.5 (5.9-8.4) gm/dL Albumin 3.4 (3.2-5.2) gm/dL Globulin 3.1 (2.2-3.7) gm/dL Albumin/Globulin Ratio 1.1 (1.0-2.3) Lipase 21 (7-60) U/L Radiology Data Radiology results reviewed: Yes I reviewed the patient's radiology results. Radiology results narrative: CT scan shows anterior abdominal hernia in the right lower quadrant containing a loop of colon but no evidence of obstruction or inflammation Discharge Plan Patient/Caregiver Discharge Instructions Pt seen by COVER MACHINE OPERATOR/PA only: No Clinical Impression: Incarcerated hernia Patient Disposition: Xfer As Inpt ([facility]) Condition: Fair Discharge Date/Time: 01/07/20 23:47
[2020-01-08] MEDS: 0.9 % SODIUM CHLORIDE 1,000 ML IV SCH ×3 (00:45→20:09)
--- NOTE | 2020-01-08 05:44 | Cat Scan Report ---
CLINICAL INFORMATION: Abdominal pain. Evaluate hernia COMPARISON: Abdomen and pelvic CT 07/29/2018 TECHNIQUE: Following enteric contrast, 80 cc of Isovue-370 were injected intravenously, and 60 seconds later, 0.625 mm helical slices were obtained from the mid heart through the subtrochanteric regions. Following reconstruction, 2.5 mm sagittal, coronal and axial reformatted images were processed and reviewed at bone, lung and soft tissue windows. Five minutes later, 0.625 mm helical slices were obtained from the mid heart through the kidneys and viewed at soft tissue windows.The exam was performed using radiation dose optimization techniques including, but not limited to, automated exposure control, adjustment of the mA and/or kV according to patient size and use of iterative reconstruction technique. FINDINGS: Lung bases show minimal subsegmental atelectasis. No effusion. The visualized heart is mildly enlarged. Abdominal images the gallbladder is surgically absent. Intrahepatic and common bile duct normal caliber: CBD is 6 mm. The liver, both kidneys, adrenal glands, spleen, pancreas and aorta, including aortic branches, are normal in size configuration and attenuation without focal lesion. There is no free air, free fluid or adenopathy. Pelvic images show hysterectomy and oophorectomy changes. The urinary bladder is normal. A moderate (7 cm) hernia through the right lower quadrant anterior abdominal wall contains a segment of mid transverse colon. There is mild edema in the mesenteric fat within the hernia sac. It does not result in colonic obstruction: The small bowel and proximal colon are normal diameter and distal colon contains a normal amount of stool. A second small 3 cm hernia in the epigastric region contains only mesenteric fat. There is also a 2 cm periumbilical hernia, adjacent to a repair, containing only mesenteric fat. Both the smaller hernias are unchanged from previous exam. Bone windows show only moderate degenerative change lower lumbar spine. Spinal stimulator in satisfactory position IMPRESSION: 1. 7 cm hernia in the right lower quadrant anterior abdominal wall containing a short segment of mid transverse colon. No evidence of bowel obstruction or strangulation. Minimal edema is seen in the hernia sac. 2. Two small stable anterior abdominal wall hernias containing only mesenteric fat: 3 cm in the epigastric region near midline 2 cm periumbilical region. No change from prior CT. Interpreted and Authenticated by: Spencer Taylor 01/08/20
[2020-01-08] MEDS ORDERED: LORazepam 2 MG/ML VIAL IV ONE (09:35)
[2020-01-08] MEDS ORDERED: oxyCODONE HCL 5 MG TABLET PO PRN (12:06)
[2020-01-08] MEDS ORDERED: ALBUTEROL SULFATE 200 PUFF INHALER IH PRN (12:06)
[2020-01-08] MEDS ORDERED: IPRATROPIUM/ALBUTEROL 3 ML AMPUL.NEB NEB PRN (12:06)
[2020-01-08] MEDS ORDERED: IMIPRAMINE 10 MG TABLET PO SCH (12:15)
[2020-01-08] MEDS ORDERED: CYCLOBENZAPRINE 10 MG TABLET PO PRN (12:52)
--- NOTE | 2020-01-08 13:07 | General Surg History&Physical ---
HPI History of Present Illness Patient information: Note initiated : 01/08/20 at 12:52 pm Service Date, if different from initiated Date: [] Patient: Saundra Cardona a 59 y/o F admitted on 01/07/20 for abdominal pain. Chief Complaint: [] History of present illness: Ms. Cardona is a 59 year old F admitted earlier this morning with the complaint of abdominal pain. The patient has a long history of multiple incisional hernias and has had 2 hernia repairs in the past. She has had her present hernia for a number of years. She had recent left total knee arthroplasty and has been using narcotic analgesics. She has developed significant constipation. She was having crampy abdominal pain. CT shows large volume of stool in her colon but no evidence of obstruction at the point of the incisional hernia. She has another hernia at her umbilicus which only contains fat. The patient's present problem is more related to severe constipation and obstruction. She will be observed and her constipation will be treated. She'll have follow-up CT of the abdomen in the morning to verify that she is nonobstructed. It would be inadvisable to explore her abdomen now with the potential for contamination of her peritoneal cavity and possible secondary infection of her prosthesis. Constitutional Constitutional: Present daytime sleepiness, fatigue, snoring, stops breathing during sleep and weight gain EENT Eyes: Absent blurry vision, decreased night vision and loss of vision Ears: Absent decreased hearing and tinnitus Nose, mouth and throat: Absent abnormal hearing, dysphagia and sore throat Cardiovascular Cardiovascular: Present dyspnea on exertion, lightheadedness and pedal edema; Absent chest pain with activity and paroxysmal nocturnal dyspnea Respiratory Respiratory: Present cough, dyspnea, dyspnea on exertion and snoring Gastrointestinal Gastrointestinal: Present abdominal pain, change in bowel habits, constipation and nausea Genitourinary Genitourinary: Present nocturia; Absent dysuria Musculoskeletal Musculoskeletal: Present abnormal gait, arthralgias, back pain, muscle cramps, myalgias and numbness Integumentary Integumentary: Absent new lesions, pruritus and sores Neurological Neurological: Present abnormal gait, restless legs and tremor(s); Absent confusion, headache(s) and syncope Psychiatric Psychiatric: Present anxiety, depression, irritability and mood swings Endocrine Endocrine: Present fatigue Hematologic/Lymphatic Hematologic/Lymphatic: Absent easy bleeding, easy bruising and lymphadenopathy Allergic/Immunologic Allergic/Immunologic: Absent tongue swelling, throat swelling, uticaria, wheezing and lip swelling PFSH PFSH Medical History Anxiety (Chronic) Arthritis (Chronic) Asthma (Chronic) Depression (Chronic) GERD (gastroesophageal reflux disease) (Chronic) Hernia (Chronic) High cholesterol (Chronic) Hypertension (Chronic) Lumbago (Acute) DC (obstructive sleep apnea) (Chronic) DC (obstructive sleep apnea) (Chronic) DC on CPAP (Chronic) Thyroid disease (Chronic) UTI (urinary tract infection) (Resolved) Surgical History Cholecystectomy planned (Chronic) H/O: hysterectomy (Chronic) History of appendectomy (Chronic) S/P hernia surgery (Chronic) S/P left knee surgery (Chronic) S/P right knee surgery (Chronic) S/P TKR (total knee replacement) (Chronic) Family History Father , renal failure No problems noted. Brother No problems noted. Brother 3-vessel coronary artery disease Sister Cervical cancer Social History marital status: single physical activity: none smoking status: Former smoker quit date: 06/09/04 pack-years: 27 alcohol intake frequency: a few times a month substance use type: does not use MEDS/ALLERGIES Home Medications and Allergies Home Medications Medication Instructions Recorded Confirmed Type DULoxetine HCL 60 mg PO BID 10/06/18 01/08/20 History [place] Carbonate 300 mg/day PO QAM 10/06/18 01/08/20 History [place] Carbonate 600 mg PO HS 10/06/18 01/08/20 History albuterol sulfate 2 puff IH QID PRN 10/06/18 01/08/20 History bisoprolol fumarate 5 mg PO DAILY 10/06/18 01/08/20 History cholecalciferol (vitamin D3) 5,000 unit PO DAILY 10/06/18 01/08/20 History cyclobenzaprine 10 mg PO BIDP PRN 10/06/18 01/08/20 History dicyclomine 20 mg PO BIDP PRN 10/06/18 01/08/20 History ipratropium-albuterol 3 ml NEB Q4HP PRN 10/06/18 01/08/20 History pantoprazole 40 mg PO QAMAC 10/06/18 01/08/20 History rosuvastatin 40 mg PO HS 10/06/18 01/08/20 History levothyroxine 200 mcg capsule 200 mcg PO QDAY 10/19/18 01/08/20 History CPAP #1 ea 02/22/19 01/07/20 History imipramine HCl 10 mg tablet 50 mg PO ONCE tab 02/22/19 01/08/20 History simethicone 80 mg tablet 160 mg PO QIDP PRN 02/22/19 01/08/20 History nasal compound #1 ea 03/30/19 01/07/20 History buspirone 7.5 mg tablet 15 mg PO TID tab 11/10/19 01/08/20 History furosemide 20 mg tablet 20 mg PO QAM 11/10/19 01/08/20 History gabapentin 200 mg PO Q8 01/07/20 01/08/20 History naproxen 250 mg PO BID 01/07/20 01/08/20 History oxycodone 5 - 10 mg PO Q4HP PRN 01/07/20 01/08/20 History aspirin 243 mg PO QDAY 01/08/20 01/08/20 History budesonide 2 ml IRRIGATION DAILY 01/08/20 01/08/20 History budesonide-formoterol [Symbicort] 2 puff INHALATION BID 01/08/20 01/08/20 History cephalexin 500 mg PO QID 01/08/20 01/08/20 History clobetasol 1 applic TOPICAL QDAY 01/08/20 01/08/20 History docusate sodium 100 mg PO QDAY 01/08/20 01/08/20 History ferrous sulfate 325 mg PO QDAY 01/08/20 01/08/20 History fluticasone propionate 1 spray INTRANASAL QDAY PRN 01/08/20 01/08/20 History pramipexole 1 mg PO BID 01/08/20 01/08/20 History trazodone 150 mg PO HS 01/08/20 01/08/20 History Allergies Allergy/AdvReac Type Severity Reaction Status Date / Time fexofenadine [From KAREL] Allergy Intermediate RASH Verified 07/27/19 09:44 rofecoxib [From VIOXX] Allergy Intermediate RASH Verified 07/27/19 09:44 NARCOTICS AdvReac Mild HALLUCINATE Uncoded 03/23/19 11:54 Physical Examination Vital Signs Vital signs: Temp Pulse Resp BP Pulse Ox 98.7 F 84 20 121/70 99 01/08/20 12:00 01/08/20 12:00 01/08/20 12:00 01/08/20 12:00 01/08/20 12:00 General physical appearance General physical exam: moderate distress, moderate pain, chronically ill and obese Eyes Eye exam: PERRL and normal ocular movement ENT ENT exam: normal pinna, normal nares, normal mucosa, no hearing loss and no congestion; negative decreased hearing Head Head exam IM: Present atraumatic, normal inspection and normocephalic Neck Neck exam: no masses, no bruits, trachea midline, no lymphadenopathy and no venous distension Cardiovascular Cardiovascular exam IM: Present normal rate and rhythm, RRR, +S1 and +S2; Absent JVD and tachycardia Respiratory Respiratory exam: normal expansion, normal respiratory effort, clear to percu ssion and clear to auscultation Abdomen Abdomen: Present soft, non tender, bowel sounds (normal active bowel sounds) and masses (moderate tenderness around lower midline hernia) Integumentary Integumentary: Present no rash, no growths, no abnormal pigmentation and other Neurologic Neurologic: Present normal coordination and normal sensation; Absent disori ented, combative, deep tendon reflexes, confused and memory loss Musculoskeletal Musculoskeletal: Present other (gait is altered by recent left total knee arthroplasty; she uses a frontwheel walker) Psychiatric Psychiatric: Present oriented to time, oriented to person, oriented to place, speech is normal and memory intact Results Labs Result diagrams: 01/07/20 19:55 01/07/20 19:55 Labs: Abnormal lab results 01/07/20 Range/Units 19:55 Glucose 108 H (70-105) mg/dL Diabetes panel 01/07/20 Range/Units 19:55 Sodium 140 (133-145) mmol/L Potassium 3.5 (3.3-5.1) mmol/L Chloride 100 (96-108) mmol/L Carbon Dioxide 26 (22-30) mmol/L BUN 15 (8-23) mg/dl Creatinine 0.6 (0.6-1.1) mg/dl Glucose 108 H (70-105) mg/dL Calcium 9.0 (8.6-10.4) mg/dl AST 22 (0-37) U/l ALT 15 (0-40) U/l Alkaline Phosphatase 102 (39-117) U/L Total Protein 6.5 (5.9-8.4) gm/dL Albumin 3.4 (3.2-5.2) gm/dL Calcium panel 01/07/20 Range/Units 19:55 Calcium 9.0 (8.6-10.4) mg/dl Albumin 3.4 (3.2-5.2) gm/dL Pituitary panel 01/07/20 Range/Units 19:55 Sodium 140 (133-145) mmol/L Potassium 3.5 (3.3-5.1) mmol/L Chloride 100 (96-108) mmol/L Carbon Dioxide 26 (22-30) mmol/L BUN 15 (8-23) mg/dl Creatinine 0.6 (0.6-1.1) mg/dl Glucose 108 H (70-105) mg/dL Calcium 9.0 (8.6-10.4) mg/dl Adrenal panel 01/07/20 Range/Units 19:55 Sodium 140 (133-145) mmol/L Potassium 3.5 (3.3-5.1) mmol/L Chloride 100 (96-108) mmol/L Carbon Dioxide 26 (22-30) mmol/L BUN 15 (8-23) mg/dl Creatinine 0.6 (0.6-1.1) mg/dl Glucose 108 H (70-105) mg/dL Calcium 9.0 (8.6-10.4) mg/dl Total Bilirubin 0.4 (0.0-1.0) mg/dL AST 22 (0-37) U/l ALT 15 (0-40) U/l Alkaline Phosphatase 102 (39-117) U/L Total Protein 6.5 (5.9-8.4) gm/dL Albumin 3.4 (3.2-5.2) gm/dL All other labs normal. A/P Assessment and plan (1) Incarcerated hernia: Status: Acute (2) Constipation due to opioid therapy: Status: Acute (3) RLS (restless legs syndrome): Status: Chronic (4) Anxiety: Status: Acute (5) DC on CPAP: Status: Chronic (6) COPD (chronic obstructive pulmonary disease): Status: Chronic Qualifiers: COPD type: unspecified COPD Qualified Code(s): J44.9 - Chronic obstr uctive pulmonary disease, unspecified (7) S/P TKR (total knee replacement): Status: Chronic Qualifiers: Laterality: left Qualified Code(s): Z96.652 - Presence of left artificial knee joint Narrative A/P Narrative: restart home medications for pain control RELISTOR 12 mg subcutaneous daily first dose now MiraLAX 17 g in 8 ounces of liquid every 4 hours 4 doses Follow-up CT of abdomen in the morning Time Spent With Patient Time: Total time spent is greater than 50% in coordination of care (as documented) at patient's floor/unit and/or counseling patient:
[2020-01-08] MEDS: ASPIRIN 81 MG TAB.CHEW PO SCH (13:25)
[2020-01-08] MEDS: PRAMIPEXOLE 1 MG TABLET PO SCH ×2 (13:26→19:27)
[2020-01-08] MEDS: BISOPROLOL 5 MG TABLET PO SCH (13:26)
[2020-01-08] MEDS: FUROSEMIDE 20 MG TABLET PO SCH (13:26)
[2020-01-08] MEDS: BUDESONIDE FORMOTEROL INH SCH ×2 (13:27→19:28)
[2020-01-08] MEDS: busPIRone 15 MG TABLET PO SCH ×2 (13:27→19:27)
[2020-01-08] MEDS: [UNRECOGNIZED DRUG - OTHER] PO SCH ×2 (13:27→19:29)
[2020-01-08] MEDS: METHYLNALTREXONE BROMIDE 12 MG/0.6 ML SYRINGE SQ SCH (13:28)
[2020-01-08] MEDS: POLYETHYLENE GLYCOL 3350 17 GM PACKET PO SCH (13:28)
[2020-01-08] MEDS ORDERED: IMIPRAMINE 25 MG TABLET PO SCH (13:30)
[2020-01-08] MEDS: PANTOPRAZOLE 40 MG TABLET PO SCH (13:39)
[2020-01-08] MEDS: LEVOTHYROXINE 100 MCG TABLET PO SCH ×2 (13:39→13:40)
[2020-01-08] MEDS: GABAPENTIN 100 MG CAPSULE PO SCH ×3 (13:46→21:45)
[2020-01-08] MEDS: NAPROXEN 250 MG TABLET PO SCH (17:04)
[2020-01-08] MEDS: DULoxetine 30 MG CAPSULE PO SCH (19:27)
[2020-01-08] MEDS: IMIPRAMINE 25 MG TABLET PO SCH (19:27)
[2020-01-08] MEDS: traZODone HCL 50 MG TABLET PO SCH (19:27)
[2020-01-09] MEDS: GABAPENTIN 100 MG CAPSULE PO SCH ×3 (05:47→21:43)
[2020-01-09] MEDS: 0.9 % SODIUM CHLORIDE 1,000 ML IV SCH (05:48)
[2020-01-09] MEDS: POLYETHYLENE GLYCOL 3350 17 GM PACKET PO SCH ×3 (06:54→19:25)
[2020-01-09] MEDS: NAPROXEN 250 MG TABLET PO SCH ×2 (07:01→17:01)
[2020-01-09] MEDS: PANTOPRAZOLE 40 MG TABLET PO SCH (07:04)
[2020-01-09] MEDS: LEVOTHYROXINE 100 MCG TABLET PO SCH (08:15)
[2020-01-09] MEDS: PRAMIPEXOLE 1 MG TABLET PO SCH ×2 (08:15→21:47)
[2020-01-09] MEDS: DULoxetine 30 MG CAPSULE PO SCH ×2 (08:15→21:45)
[2020-01-09] MEDS: ASPIRIN 81 MG TAB.CHEW PO SCH (08:15)
[2020-01-09] MEDS: BISOPROLOL 5 MG TABLET PO SCH (08:16)
[2020-01-09] MEDS: FUROSEMIDE 20 MG TABLET PO SCH (08:16)
[2020-01-09] MEDS: FERROUS SULFATE 325 MG TABLET PO SCH (08:16)
[2020-01-09] MEDS: DOCUSATE SODIUM 100 MG CAPSULE PO SCH (08:16)
[2020-01-09] MEDS: VITAMIN D3 5,000 UNIT CAPSULE PO SCH (08:16)
[2020-01-09] MEDS: busPIRone 15 MG TABLET PO SCH ×3 (08:16→21:46)
[2020-01-09] MEDS: [UNRECOGNIZED DRUG - OTHER] PO SCH ×2 (08:26→21:44)
[2020-01-09] MEDS: BUDESONIDE FORMOTEROL INH SCH ×2 (08:26→21:44)
[2020-01-09] MEDS: METHYLNALTREXONE BROMIDE 12 MG/0.6 ML SYRINGE SQ SCH (08:27)
[2020-01-09] MEDS: CLOBETASOL PROPIONATE 1 DOSE TUBE TOPICAL SCH (08:27)
[2020-01-09] MEDS ORDERED: POLYETHYLENE GLYCOL 3350 17 GM PACKET PO SCH (09:00)
--- NOTE | 2020-01-09 10:26 | General Surgery Progress Note ---
SUBJECTIVE Subjective Patient information: Note initiated : 01/09/20 at 10:21 am Service Date, if different from initiated Date: [] Patient: Saundra Cardona 59 y/o F admitted on 01/07/20 for abdominal pain. Chief Complaint: [] Principal diagnosis: incisional hernia with constipation Interval history: patient is clinically stable. She has a small amount of flatus. She had a small bowel movement last evening. MiraLAX has not been effective. She does not have any increased abdominal distention. Her abdominal pain is controlled. Constitutional Vitals: Vital Signs Temp Pulse Resp BP Pulse Ox 97.3 F 76 18 131/76 96 01/09/20 08:00 01/09/20 08:00 01/09/20 08:00 01/09/20 08:00 01/09/20 08:00 Period Temp Pulse Resp BP Sys/Méndez Pulse Ox Last 24 Hr 97.3 F-98.7 F 65-84 18-22 110-152/70-79 91-99 Intake and Output 01/08/20 01/09/20 01/09/20 21:59 05:59 13:59 Intake Total 1448 1335 360 Output Total 3250 1400 800 Balance -1802 -65 -440 Weight 227 lb Intake & Output: Intake & Output 01/08/20 01/09/20 01/09/20 21:59 05:59 13:59 Intake Total 1448 1335 360 Output Total 3250 1400 800 Balance -1802 -65 -440 Weight 227 lb Intake: IV 968 965 Sodium Chloride 0.9% 1,000 ml @ 968 965 100 mls/hr IV .Q10H [facility] Rx#: [id number] Oral 480 370 360 Output: Void Amount 3250 1400 800 Other: Meal Dinner Breakfast Percent of Meal Consumed 100% 50% Feeding Ability Independent Urine Appearance Clear Clear Urine Color Straw Bright Yellow Urine Odor Normal Normal Stool Size Small Stool Color Brown Stool Consistency Formed Head Head exam: Present atraumatic, normal inspection and normocephalic Eye Pupils: Present normal accommodation and PERRL ENT ENT exam: Present normal exam, normal external ear exam and normal oropharynx Neck Neck exam: Present full ROM; Absent tenderness Respiratory Respiratory exam: Present normal respiratory exam and CTAB; Absent rales, rhonchi and wheezes Cardiovascular Cardiovascular exam: Present normal rate and rhythm, RRR, +S1 and +S2; Absent gallop and JVD GI/Abdominal GI/Abdominal exam: Present normal bowel sounds, soft and firm (firm fullness over the hernia site right paramedian paraumbilical area); Absent rebound Extremities Exam Extremities exam: Present joint swelling (postoperative swelling left knee), pedal edema (1+ edema left lower extremity), tenderness (mild tenderness left knee) and neurovascular intact Additional comments: incision left knee evaluated and is healing nicely Neurological Exam Neurological exam: Present alert, CN II-XII intact, normal gait and oriented X3 Psychiatric Psychiatric exam: Present agitated and anxious Skin Skin exam: Present normal color and rash; Absent cyanosis A/P Assessment and plan (1) Constipation due to opioid therapy: Status: Acute (2) Incarcerated hernia: Status: Acute (3) RLS (restless legs syndrome): Status: Chronic (4) DC (obstructive sleep apnea): Status: Chronic (5) COPD (chronic obstructive pulmonary disease): Status: Chronic Qualifiers: COPD type: unspecified COPD Qualified Code(s): J44.9 - Chronic obstructive pulmonary disease, unspecified Narrative A/P Narrative: continue present medications And citrate of magnesia 2 doses Check abdominal series today Saline lock IV Time Spent With Patient Time: Total time spent is greater than 50% in coordination of care (as documented) at patient's floor/unit and/or counseling patient:
[2020-01-09] MEDS: MAGNESIUM CITRATE 300 ML ORAL.SOL PO SCH ×2 (10:38→16:13)
[2020-01-09] MEDS: BUDESONIDE 0.5 MG/2 ML AMPUL.NEB NAS SCH (12:43)
--- NOTE | 2020-01-09 13:18 | XRay Report ---
CLINICAL INFORMATION: Anterior wall hernia containing incarcerated transverse colon. Follow-up COMPARISON: Abdomen and pelvic CT 01/07/2020. FINDINGS: Stomach is mildly dilated with air-fluid level. Scattered loops of small bowel with air-fluid levels and mild dilatation of the hepatic flexure to the level of the known hernia in the mid transverse colon. The distal transverse and left colon are decompressed. Free air. IMPRESSION: Possible developing mid colon obstruction due to a known anterior abdominal wall hernia containing a segment of mid transverse colon Interpreted and Authenticated by: Spencer Taylor 01/09/20
[2020-01-09] MEDS: DICYCLOMINE 20 MG TABLET PO PRN ×2 (14:50→19:25)
[2020-01-09] MEDS ORDERED: LORazepam 2 MG/ML VIAL IV ONE (15:16)
[2020-01-09] MEDS ORDERED: SIMETHICONE 80 MG TAB.CHEW CHEWED PRN (21:35)
[2020-01-09] MEDS: IMIPRAMINE 25 MG TABLET PO SCH (21:45)
[2020-01-09] MEDS: traZODone HCL 50 MG TABLET PO SCH (21:46)
[2020-01-10] MEDS: POLYETHYLENE GLYCOL 3350 17 GM PACKET PO SCH ×3 (00:21→11:52)
[2020-01-10] MEDS: GABAPENTIN 100 MG CAPSULE PO SCH (05:45)
[2020-01-10 06:45] LABS: Basophils # (Auto) 0.03 K/mcL (0.00-0.30); Basophils % (Auto) 0.3 % (0.0-2.0); Eosinophils # (Auto) 0.36 K/mcL (0.00-0.70); Eosinophils % (Auto) 3.8 % (0.0-7.0); Granulocytes % (Auto) 72.2 % (38.0-78.0); Hematocrit 38.1 % (34.1-44.9); Hemoglobin 12.2 g/dL (11.2-15.7); Lymphocytes # (Auto) 1.36 K/mcL (1.50-4.80); Lymphocytes % (Auto) 14.4 % (15.5-49.0); Mean Cell Volume 94.3 fL (80.0-100.0); Mean Platelet Volume 8.9 fL (7.4-10.4); Monocytes # (Auto) 0.88 K/mcL (0.10-0.90); Monocytes % (Auto) 9.3 % (1.0-12.0); Platelet Count 243 K/mcL (140-440); RBC 4.04 M/mcL (3.59-5.38); Red Cell Distribution Width 12.3 % (11.5-14.5); WBC 9.5 K/mcL (4.50-11.00)
--- NOTE | 2020-01-10 08:04 | XRay Report ---
CLINICAL INFORMATION: Midline abdominal hernia containing a segment of mid transverse colon. Possible developing colonic obstruction COMPARISON: Plain film 2019 FINDINGS: There is now a normal amount of gas seen within the distal transverse and left colon suggesting resolving mid transverse colonic obstruction related to hernia. Stomach, small bowel and right colon are relatively decompressed. No free air IMPRESSION: Resolution of mid transverse colon obstruction related to anterior abdominal wall hernia Interpreted and Authenticated by: Spencer Taylor 01/10/20
[2020-01-10] MEDS: PRAMIPEXOLE 1 MG TABLET PO SCH (08:58)
[2020-01-10] MEDS: BISOPROLOL 5 MG TABLET PO SCH (08:58)
[2020-01-10] MEDS: DULoxetine 30 MG CAPSULE PO SCH (08:58)
[2020-01-10] MEDS: ASPIRIN 81 MG TAB.CHEW PO SCH (08:59)
[2020-01-10] MEDS: busPIRone 15 MG TABLET PO SCH (08:59)
[2020-01-10] MEDS: PANTOPRAZOLE 40 MG TABLET PO SCH (08:59)
[2020-01-10] MEDS: VITAMIN D3 5,000 UNIT CAPSULE PO SCH (08:59)
[2020-01-10] MEDS: FUROSEMIDE 20 MG TABLET PO SCH (08:59)
[2020-01-10] MEDS: LEVOTHYROXINE 100 MCG TABLET PO SCH (08:59)
[2020-01-10] MEDS: NAPROXEN 250 MG TABLET PO SCH (09:00)
[2020-01-10] MEDS: FERROUS SULFATE 325 MG TABLET PO SCH (09:01)
[2020-01-10] MEDS: [UNRECOGNIZED DRUG - OTHER] PO SCH (09:02)
[2020-01-10] MEDS: CLOBETASOL PROPIONATE 1 DOSE TUBE TOPICAL SCH (09:03)
[2020-01-10] MEDS: BUDESONIDE FORMOTEROL INH SCH (09:06)
[2020-01-10] MEDS: METHYLNALTREXONE BROMIDE 12 MG/0.6 ML SYRINGE SQ SCH (09:07)
[2020-01-10] MEDS: DOCUSATE SODIUM 100 MG CAPSULE PO SCH (09:21)
[2020-01-10] MEDS: BUDESONIDE 0.5 MG/2 ML AMPUL.NEB NAS SCH (09:34)
--- NOTE | 2020-01-10 13:25 | Discharge Summary ---
Discharge Provider Provider Patient information: Note initiated : 01/10/20 at 1:13 pm Service Date, if different from initiated Date: [] Patient: Saundra Cardona 59 y/o F admitted on 01/09/20 for abdominal pain. Chief Complaint: [] Date of admission: 01/09/20 15:20 Discharge date: 01/10/20 Primary care physician: Amanda Chavez Admitting clinician: Deepika Avila Attending physician on admission: Deepika Avila Consults: 01/08/20 07:30 Consult to Physician [CONS] Routine Comment: Consulting Provider: Deepika Avila Reason For Exam: Physician to Consult Attending physician on discharge: Deepika Avila Discharging clinician: Deepika Avila COURSE Hospital Course Hospital course: 59-year-old female admitted with complaint of abdominal pain. She has a long history of multiple incisional hernia sent to her new repairs in the past. She had her present hernia for many years. She underwent recent left knee total arthroscopy and have been using narcotic G6. This led to constipation. She developed severe abdominal pain and was noted to have a large volume of stool in her colon but no evidence of obstruction at the point of incisional hernia. It was felt that she had severe constipation related to narcotic analgesics. She was admitted and started on Relistor, MiraLAX, citrate of magnesia. She decompression colon and had multiple bowel movements and became asymptomatic. Her diet has been advanced she is not having any difficulty. Patient is felt to be stable and safe for discharge home. Discharge diagnosis: narcotic induced constipation Secondary discharge diagnosis: incisional hernia Obstructive sleep apnea Hypertension Gastroesophageal reflux disease Reason for admission: partial obstruction due to constipation Procedures: none Pertinent studies/significant findings: none Complications: none Time Spent with Patient Time attestation: Total time spent providing and/or coordinating discharge services: Physical Examination Vital Signs Vital signs: Temp Pulse Resp BP Pulse Ox 98 F 82 20 115/77 94 01/10/20 11:17 01/10/20 11:17 01/10/20 11:17 01/10/20 11:17 01/10/20 11:17 General physical appearance General physical exam: moderate distress, moderate pain, chronically ill and obese Eyes Eye exam: PERRL and normal ocular movement ENT ENT exam: normal pinna, normal nares, normal mucosa, no hearing loss and no congestion; negative decreased hearing Neck Neck exam: no masses, no bruits, trachea midline, no lymphadenopathy and no venous distension Cardiovascular Cardiovascular exam IM: Present normal rate and rhythm, RRR, +S1 and +S2; Absent JVD and tachycardia Respiratory Respiratory exam: normal expansion, normal respiratory effort, clear to percussion and clear to auscultation Abdomen Abdomen: Present soft, non tender, bowel sounds (normal active bowel sounds) and masses (moderate tenderness around lower midline hernia) Integumentary Integumentary: Present no rash, no growths, no abnormal pigmentation and other Neurologic Neurologic: Present normal coordination and normal sensation; Absent disoriented, combative, deep tendon reflexes, confused and memory loss Musculoskeletal Musculoskeletal: Present other (gait is altered by recent left total knee arthroplasty; she uses a frontwheel walker) Psychiatric Psychiatric: Present oriented to time, oriented to person, oriented to place, speech is normal and memory intact Discharge Plan Patient/Caregiver Discharge Instructions Activity: ambulate only with your walker, increase activity as tolerated and wear oxygen at night Diet: Regular Diet Activity Restrictions/Additional Instructions: continue physical therapy for your knee rehabilitation USE one half the dose of oxycodone that you were using before admission MiraLAX 17 g in 8 ounces of liquid twice daily to prevent constipation Prescriptions: No Action levothyroxine 200 mcg capsule 200 mcg PO QDAY RF: 0 imipramine HCl 10 mg tablet 50 mg PO ONCE RF: 0 (DME) CPAP Qty: 1 RF: 0 (DME) nasal compound Qty: 1 RF: 0 furosemide 20 mg tablet 20 mg PO QAM RF: 0 cyclobenzaprine 10 MG tablet 10 mg PO BIDP PRN (Reason: Muscle Spasm) RF: 0 ipratropium-albuterol 3 ML solution for nebulization 3 ml NEB Q4HP PRN (Reason: Shortness Of Breath) RF: 0 bisoprolol fumarate 5 MG tablet 5 mg PO DAILY RF: 0 pantoprazole 40 MG tablet 40 mg PO QAMAC RF: 0 albuterol sulfate 6.7 GM HFA aerosol inhaler 2 puff IH QID PRN (Reason: Shortness Of Breath) RF: 0 cholecalciferol (vitamin D3) 5,000 UNIT capsule 5,000 unit PO DAILY RF: 0 dicyclomine 10 MG capsule 20 mg PO BIDP PRN (Reason: Diarrhea) RF: 0 rosuvastatin 40 MG tablet 40 mg PO HS RF: 0 DULoxetine HCL 60 mg PO BID RF: 0 [place] Carbonate 300 mg/day PO QAM RF: 0 [place] Carbonate 600 mg PO HS RF: 0 simethicone 80 mg tablet 160 mg PO QIDP PRN (Reason: Abdominal Distention) RF: 0 buspirone 7.5 mg tablet 15 mg PO TID RF: 0 gabapentin 100 mg capsule 200 mg PO Q8 RF: 0 oxycodone 5 mg tablet 5 - 10 mg PO Q4HP PRN (Reason: Pain) RF: 0 naproxen 500 mg tablet 250 mg PO BID RF: 0 trazodone 50 mg tablet 150 mg PO HS RF: 0 pramipexole 1 mg Tablet 1 mg PO BID RF: 0 clobetasol 0.05 % Cream 1 applic TOPICAL QDAY RF: 0 ferrous sulfate 325 mg (65 mg iron) Tablet 325 mg PO QDAY RF: 0 docusate sodium 100 mg Capsule 100 mg PO QDAY RF: 0 budesonide 0.5 mg/2 mL suspension for nebulization 2 ml irrigation DAILY RF: 0 fluticasone propionate 50 mcg/actuation [place],Suspension 1 spray INTRANASAL QDAY PRN (Reason: Congestion) RF: 0 budesonide-formoterol [Symbicort] 80-4.5 mcg/actuation Hfa Aerosol Inhaler 2 puff INHALATION BID RF: 0 cephalexin 500 mg capsule 500 mg PO QID RF: 0 aspirin 81 mg Tablet,Chewable 243 mg PO QDAY RF: 0 Follow Up Plan Follow up with: Amanda Chavez MD [Primary Care Provider] - Patient Disposition: Home, Self-Care Care Plan Goals: continue outpatient physical therapy as previously scheduled Assessment: patient is stable for discharge home Prognosis: Fair Rehab Potential: Good I certify that the patient requires SNF services: No Overall status at discharge: patient is progressing back to baseline Discharge Orders: Discharge Order (Routine); Ordered 01/10/20 Ordered By: Deepika Avila Pending Pending Pending: Resuscitation Status Full Code Diet Full Liquid Diet Start Sun Jan 09 1716 Acetaminophen (Tylenol) 650 mg PO Q6HP PRN; Protocol PRN Reason: Per Pain Protocol/Fever > 101 Last Admin: 01/08/20 03:03 Dose: 650 mg Documented by: YAJAIRA Aspirin (Aspirin) 243 mg PO QDAY [facility] Last Admin: 01/10/20 08:59 Dose: 243 mg Documented by: STEFANO Cosigned by: [id number] Admin: 01/09/20 08:15 Dose: 243 mg Documented by: Admin: 01/08/20 13:25 Dose: 243 mg Documented by: VENITA Bisoprolol Fumarate (Zebeta) 5 mg PO DAILY [facility] Last Admin: 01/10/20 08:58 Dose: 5 mg Documented by: STEFANO Cosigned by: [id number] Admin: 01/09/20 08:16 Dose: 5 mg Documented by: Admin: 01/08/20 13:26 Dose: 5 mg Documented by: VENITA Budesonide (Pulmicort) 0.5 mg DEBBIE DAILY [facility] Last Admin: 01/10/20 09:34 Dose: Not Given Documented by: Admin: 01/09/20 12:43 Dose: Not Given Documented by: ZAIDA Buspirone HCl (Buspar) 15 mg PO TID [facility] Last Admin: 01/10/20 08:59 Dose: 15 mg Documented by: STEFANO Cosigned by: [id number] Admin: 01/09/20 21:46 Dose: 15 mg Documented by: Admin: 01/09/20 14:30 Dose: 15 mg Documented by: Admin: 01/09/20 08:16 Dose: 15 mg Documented by: Admin: 01/08/20 19:27 Dose: 15 mg Documented by: Admin: 01/08/20 13:27 Dose: 15 mg Documented by: VENITA Clobetasol Propionate (Temovate Cream 0.05%) 1 dose TOPICAL QDAY [facility] Last Admin: 01/10/20 09:03 Dose: 1 dose Documented by: STEFANO Cosigned by: [id number] Admin: 01/09/20 08:27 Dose: 1 dose Documented by: ZAIDA Cyclobenzaprine HCl (Flexeril) 10 mg PO BIDP PRN PRN Reason: Muscle Spasm Last Admin: 01/09/20 19:25 Dose: 10 mg Documented by: DAKOTA Dicyclomine HCl (Dicyclomine) 20 mg PO BIDP PRN PRN Reason: Diarrhea Last Admin: 01/09/20 19:25 Dose: 20 mg Documented by: Admin: 01/09/20 14:50 Dose: 20 mg Documented by: ZAIDA Docusate Sodium (Colace) 100 mg PO QDAY [facility] Last Admin: 01/10/20 09:21 Dose: 100 mg Documented by: STEFANO Cosigned by: [id number] Admin: 01/09/20 08:16 Dose: 100 mg Documented by: ZAIDA Duloxetine HCl (Cymbalta) 60 mg PO BID [facility] Last Admin: 01/10/20 08:58 Dose: 60 mg Documented by: STEFANO Cosigned by: [id number] Admin: 01/09/20 21:45 Dose: 60 mg Documented by: Admin: 01/09/20 08:15 Dose: 60 mg Documented by: Admin: 01/08/20 19:27 Dose: 60 mg Documented by: DAKOTA Ferrous Sulfate (Ferrous Sulfate) 325 mg PO QDAY [facility] Last Admin: 01/10/20 09:01 Dose: 325 mg Documented by: STEFANO Cosigned by: [id number] Admin: 01/09/20 08:16 Dose: 325 mg Documented by: ZAIDA Furosemide (Lasix) 20 mg PO QAM [facility] Last Admin: 01/10/20 08:59 Dose: 20 mg Documented by: STEFANO Cosigned by: [email or web address] Admin: 01/09/20 08:16 Dose: 20 mg Documented by: Admin: 01/08/20 13:26 Dose: 20 mg Documented by: VENITA Gabapentin (Neurontin) 200 mg PO Q8 [facility] Last Admin: 01/10/20 05:45 Dose: 200 mg Documented by: Admin: 01/09/20 21:43 Dose: 200 mg Documented by: Admin: 01/09/20 14:30 Dose: 200 mg Documented by: Admin: 01/09/20 05:47 Dose: 200 mg Documented by: Admin: 01/08/20 21:45 Dose: Not Given Documented by: Admin: 01/08/20 19:26 Dose: 200 mg Documented by: Admin: 01/08/20 13:46 Dose: 200 mg Documented by: VENITA Imipramine HCl (Tofranil) 50 mg PO HS [facility] Last Admin: 01/09/20 21:45 Dose: 50 mg Documented by: Admin: 01/08/20 19:27 Dose: 50 mg Documented by: DAKOTA Levothyroxine Sodium (Synthroid) 200 mcg PO QDAY [facility] Last Admin: 01/10/20 08:59 Dose: 200 mcg Documented by: STEFANO Cosigned by: [id number] Admin: 01/09/20 08:15 Dose: 200 mcg Documented by: Admin: 01/08/20 13:40 Dose: Not Given Documented by: Admin: 01/08/20 13:39 Dose: 200 mcg Documented by: VENITA Morphine Sulfate (Morphine) 2 mg IV Q1HP PRN; Protocol PRN Reason: Chest Pain Last Admin: 01/08/20 05:27 Dose: 2 mg Documented by: Admin: 01/08/20 00:45 Dose: 2 mg Documented by: DAKOTA Naproxen (Naprosyn) 250 mg PO BIDCC [facility]; Protocol Last Admin: 01/10/20 09:00 Dose: 250 mg Documented by: STEFANO Cosigned by: [id number] Admin: 01/09/20 17:01 Dose: 250 mg Documented by: Admin: 01/09/20 07:01 Dose: 250 mg Documented by: Admin: 01/08/20 17:04 Dose: 250 mg Documented by: VENITA Oxycodone HCl (Roxicodone) 5 - 10 mg PO Q4HP PRN; Protocol PRN Reason: Pain Last Admin: 01/09/20 20:18 Dose: 10 mg Documented by: [email or web address] Pantoprazole Sodium (Protonix) 40 mg PO QAMAC [facility] Last Admin: 01/10/20 08:59 Dose: 40 mg Documented by: STEFANO Cosigned by: [id number] Admin: 01/09/20 07:04 Dose: 40 mg Documented by: Admin: 01/08/20 13:39 Dose: 40 mg Documented by: VENITA Budesonide- Formoterol [ Symbicort] Inh 2 dose INH BID [facility] Last Admin: 01/10/20 09:06 Dose: 2 dose Documented by: STEFANO Cosigned by: [id number] Admin: 01/09/20 21:44 Dose: Not Given Documented by: Admin: 01/09/20 08:26 Dose: 2 dose Documented by: Admin: 01/08/20 19:28 Dose: 2 dose Documented by: Admin: 01/08/20 13:27 Dose: 2 dose Documented by: VENITA [place] Carbonate Sa ((Lithobid) 300mg) 300 dose PO QAM [facility] Last Admin: 01/10/20 09:02 Dose: 300 dose Documented by: STEFANO Cosigned by: [email or web address] Admin: 01/09/20 08:26 Dose: 300 dose Documented by: Admin: 01/08/20 13:27 Dose: 300 dose Documented by: VENITA [place] Carbonate Sa ((Lithobid) 300mg) 2 dose PO [facility] Last Admin: 01/09/20 21:44 Dose: 2 dose Documented by: Admin: 01/08/20 19:29 Dose: 2 dose Documented by: DAKOTA Rosuvastatin 40 Mg 40 dose PO [facility] Last Admin: 01/09/20 21:43 Dose: 40 dose Documented by: Admin: 01/08/20 19:28 Dose: 40 dose Documented by: DAKOTA Polyethylene Glycol (Miralax) 17 gm PO Q6H [facility] Admin: 01/10/20 11:52 Dose: 17 gm Documented by: STEFANO Cosigned by: [id number] Admin: 01/10/20 05:45 Dose: 17 gm Documented by: Admin: 01/10/20 00:21 Dose: 17 gm Documented by: Admin: 01/09/20 19:25 Dose: 17 gm Documented by: DAKOTA Pramipexole Dihydrochloride (Mirapex) 1 mg PO BID [facility] Admin: 01/10/20 08:58 Dose: 1 mg Documented by: STEFANO Cosigned by: [id number] Admin: 01/09/20 21:47 Dose: 1 mg Documented by: Admin: 01/09/20 08:15 Dose: 1 mg Documented by: Admin: 01/08/20 19:27 Dose: 1 mg Documented by: Admin: 01/08/20 13:26 Dose: 1 mg Documented by: VENITA Simethicone (Mylicon) 160 mg CHEWED Q4HP PRN PRN Reason: Gas pain Last Admin: 01/09/20 21:49 Dose: 160 mg Documented by: DAKOTA Trazodone HCl (Desyrel) 150 mg PO HS [facility] Last Admin: 01/09/20 21:46 Dose: 150 mg Documented by: Admin: 01/08/20 19:27 Dose: 150 mg Documented by: DAKOTA Vitamin D (Vitamin D3) 5,000 unit PO DAILY [facility] Last Admin: 01/10/20 08:59 Dose: 5,000 unit Documented by: STEFANO Cosigned by: [id number] Admin: 01/09/20 08:16 Dose: 5,000 unit Documented by: ZAIDA Shift Summary 01/10/20 04:51 Shift Summary by Gardenia Resendez Pt is AOx4. Up with FWW, GB, and SBA. Pt had a lot of cramping and pain. Simethecone Q4H PRN was ordered which seemed to help. Miralax Q6H until BM's are clear per Dr Avila. Full liquid diet. Pt very anxious. IV SL in R. wrist. Plan for pt is ABD xray today and possible discharge. Will update at bedside. Initialized on 01/10/20 04:51 - END OF NOTE
== END 2020-01-10 15:15 | disposition home or self-care (01) | DRG 392 ==
LOC: MEDSUR 19:09 → ED 19:09 → MEDSUR 23:47
PROVIDERS: ADMIT Family Medicine Adult Medicine; ATTEND Family Medicine Adult Medicine

== ENCOUNTER 2020-06-17 21:17 | Inpatient (IN) ==
[2020-06-17] MEDS ORDERED: 0.9 % SODIUM CHLORIDE 1,000 ML IV ONE (21:37)
[2020-06-17] MEDS ORDERED: ONDANSETRON 4 MG/2 ML VIAL IV ONE (21:37)
--- NOTE | 2020-06-17 21:41 | Emergency Department Note ---
Abdominal Pain HPI General Chief Complaint: Abdominal Pain Stated Complaint: lower abd pain Time Seen by Provider: 06/17/20 21:24 Source: patient and EMS Mode of arrival: EMS Limitations: no limitations History of Present Illness HPI Narrative: Narrative: The patient presents with acute onset of abdominal pain this evening. It is periumbilical in nature and does not radiate nor has not migrated. She denies nausea or vomiting. She feels constipated. Her last bowel movement was yesterday. She cannot recollect passing gas anytime today. She denies fever or urinary symptoms. She denies any cough or dyspnea. She has a history of hernia. Related Data Home Medications Medication Instructions Recorded Confirmed DULoxetine HCL 60 mg PO BID 10/06/18 03/16/20 [place] Carbonate 300 mg/day PO QAM 10/06/18 03/16/20 [place] Carbonate 600 mg PO HS 10/06/18 03/16/20 albuterol sulfate 2 puff IH QID PRN 10/06/18 03/16/20 bisoprolol fumarate 5 mg PO DAILY 10/06/18 03/16/20 dicyclomine 20 mg PO BIDP PRN 10/06/18 03/16/20 ipratropium-albuterol 3 ml NEB Q4HP PRN 10/06/18 03/16/20 pantoprazole 40 mg PO QAMAC 10/06/18 03/16/20 rosuvastatin 40 mg PO HS 10/06/18 03/16/20 levothyroxine 200 mcg capsule 200 mcg PO QDAY 10/19/18 03/16/20 CPAP #1 ea 02/22/19 03/16/20 imipramine HCl 10 mg tablet 50 mg PO ONCE tab 02/22/19 03/16/20 simethicone 80 mg tablet 160 mg PO QIDP PRN 02/22/19 03/16/20 nasal compound #1 ea 03/30/19 03/16/20 buspirone 7.5 mg tablet 15 mg PO TID tab 11/10/19 03/16/20 furosemide 20 mg tablet 20 mg PO QAM 11/10/19 03/16/20 gabapentin 200 mg PO Q8 01/07/20 03/16/20 naproxen 250 mg PO BID 01/07/20 03/16/20 budesonide 2 ml IRRIGATION DAILY 01/08/20 03/16/20 budesonide-formoterol [Symbicort] 2 puff INHALATION BID 01/08/20 03/16/20 clobetasol 1 applic TOPICAL QDAY 01/08/20 03/16/20 docusate sodium 100 mg PO QDAY 01/08/20 03/16/20 ferrous sulfate 325 mg PO QDAY 01/08/20 03/16/20 fluticasone propionate 1 spray INTRANASAL QDAY PRN 01/08/20 03/16/20 pramipexole 1 mg PO BID 01/08/20 03/16/20 trazodone 150 mg PO HS 01/08/20 03/16/20 Previous Rx's Medication Instructions Recorded cyclobenzaprine 10 mg PO TIDP PRN #21 tab 05/31/20 oxycodone 5 - 10 mg PO Q6-8HP PRN #10 tab 05/31/20 prednisone 40 mg PO QDAY #8 tab 05/31/20 Allergies Allergy/AdvReac Type Severity Reaction Status Date / Time fexofenadine [From KAREL] Allergy Intermediate RASH Verified 06/17/20 21:23 rofecoxib [From VIOXX] Allergy Intermediate RASH Verified 06/17/20 21:23 NARCOTICS AdvReac Mild HALLUCINATE Uncoded 03/23/19 11:54 Review of Systems ROS ROS Narrative: Narrative: All systems ED: reviewed and negative except as stated. [facility] Narrative Patient History Narrative: Narrative: Medical/Surgical/Family History All Active Problems (Updated 06/18/20 @ 00:27 by Piotr Nicholson MD) Blurred vision, bilateral (Acute) Abdominal pain (Acute) Leg pain, right (Acute) Constipation due to opioid therapy (Acute) Epistaxis (Acute) Anxiety (Acute) Sprain of foot, right (Acute) Itching with irritation (Acute) Pruritus (Acute) Lumbar back pain (Acute) Device in situ (Acute) Incarcerated hernia (Acute) Numbness of left hand (Acute) Left arm pain (Acute) RLS (restless legs syndrome) (Chronic) Tenosynovitis, de [place] (Acute) DC on CPAP (Chronic) DC (obstructive sleep apnea) (Chronic) COPD (chronic obstructive pulmonary disease) (Chronic) Wasp sting (Acute) Allergic reaction to insect bite (Acute) Cracked skin on feet (Acute) S/P TKR (total knee replacement) (Chronic) Lumbago (Acute) Orthostatic hypotension (Acute) Dizziness (Acute) Shortness of breath (Acute) Hyperventilation (Acute) Influenza B (Acute) Anemia (Acute) Muscle pain (Acute) Hemoptysis (Acute) COPD exacerbation (Acute) Hemoptysis (Acute) Costalchondritis (Acute) Medical History (Updated 06/18/20 @ 00:27 by Piotr Nicholson MD) Anxiety (Chronic) Arthritis (Chronic) Asthma (Chronic) Depression (Chronic) GERD (gastroesophageal reflux disease) (Chronic) Hernia (Chronic) High cholesterol (Chronic) Hypertension (Chronic) Lumbago (Acute) DC (obstructive sleep apnea) (Chronic) DC (obstructive sleep apnea) (Chronic) DC on CPAP (Chronic) Thyroid disease (Chronic) UTI (urinary tract infection) (Resolved) Surgical History Cholecystectomy planned (Chronic) H/O: hysterectomy (Chronic) History of appendectomy (Chronic) S/P hernia surgery (Chronic) S/P left knee surgery (Chronic) S/P right knee surgery (Chronic) S/P TKR (total knee replacement) (Chronic) Family History Father , renal failure No problems noted. Brother No problems noted. Brother 3-vessel coronary artery disease Sister Cervical cancer Social History Smoking Status: Former smoker Alcohol Intake Frequency: a few times a month Substance Use: does not use Exam Narrative Narrative: Narrative: General Limitations: no limitations General appearance: Present alert and grimacing; Absent in no apparent distress Head Head: Present atraumatic and normal inspection Eye Eye: Present normal appearance Neck Neck: Present normal inspection, full ROM and trachea midline Chest Chest: Present normal inspection and symmetric chest wall rise Respiratory Respiratory: Present normal lung sounds bilaterally; Absent respiratory distress Cardiovascular Cardiovascular: Present regular rate and normal rhythm Adbominal Abdominal: Present tenderness (Diffusely), guarding, diminished bowel sounds and mass (Right lower quadrant); Absent distention and rebound Extremities Extremities: Present normal inspection and full ROM Back Back: Present full ROM Neurological Neurological: Present alert and oriented X3 Psychiatric Psychiatric: Present normal affect and normal mood Skin Skin: Present warm (WNL) and dry Course Reevaluation(s) Reevaluation #1: Nursing staff was unable to establish an IV. I do not think this patient warrants a central line at this point. We have been able to draw blood and we will change meds to sublingual and IM. Time: 22:14 Reevaluation #2: With the CT results and the lab results, I spoke to the on-call surgeon, Dr. Avila. He asked me to post her onto his service, make her n.p.o., get an EKG and a chest x-ray, and he said he would see the patient in the morning. Time: 00:26 Vital Signs Vital signs: Vital Signs Temperature 97.1 F 06/17/20 21: Pulse Rate 77 06/17/20 21:19 Respiratory Rate 22 06/17/20 21:19 Blood Pressure 134/71 06/17/20 21:19 Pulse Oximetry (%) 95 06/17/20 21:19 Temperature 97.1 F 06/17/20: Pulse Rate 79 06/18/20 00:01 Respiratory Rate 22 06/17/20 21:19 Blood Pressure 94/50 06/18/20 00:01 Pulse Oximetry (%) 89 L 06/18/20 00:01 [facility] MDM Narrative Medical decision making narrative: Narrative: The patient presents with diffuse abdominal pain. She has diminished bowel sounds and lack of flatus. Small bowel obstruction is concerning. This could be simple constipation. Other etiologies such as acute appendicitis or acute cholecystitis are less likely but still in the differential. We will obtain appropriate labs and a CT. I have no concern for pulmonary or cardiac masquerading his abdomen given exam findings. Her pain does not appear to be out of proportion to exam so mesenteric ischemia is unlikely. We will obtain a lactic acid. Plan to medicate for pain and nausea as well as hydrate. Lab Data Lab results reviewed: Yes I reviewed the patient's lab results. Result diagrams: 06/17/20 22:02 06/17/20 22: Labs: Lab Results 06/17/20 06/17/20 06/17/20 Range/Units 22:02 22:02 22:02 WBC 15.5 H (4.5-11.0) K/mcL RBC 4.58 (4.00-5.20) M/mcL Hgb 13.6 (12.0-15.0) g/dL Hct 43.1 (36.0-48.0) % MCV 94.1 (80.0-100.0) fL MCH 29.7 (26.0-34.0) pg MCHC 31.6 (31.0-36.0) g/dL RDW 13.2 (11.5-14.5) % Plt Count 239 (140-440) K/mcL MPV 8.8 (7.4-10.4) fL Neut % (Auto) 76.5 (38.0-78.0) % Lymph % (Auto) 15.6 (15.0-49.0) % [place] % (Auto) 5.0 (1.0-12.0) % Eos % (Auto) 2.4 (0.0-7.0) % Baso % (Auto) 0.5 (0.0-2.0) % Lymph # (Auto) 2.42 (1.50-4.80) K/mcL [place] # (Auto) 0.78 (0.10-0.90) K/mcL Eos # (Auto) 0.37 (0.00-0.70) K/mcL Baso # (Auto) 0.07 (0.00-0.20) K/mcL Absolute Neutrophils 11.88 H (1.80-8.00) K/mcL VBG Lactic Acid 1.5 (0.5-2.0) mmol/L Sodium 135 (133-145) mmol/L Potassium 3.7 (3.3-5.1) mmol/L Chloride 101 (96-108) mmol/L Carbon Dioxide 24 (22-30) mmol/L Anion Gap 10.0 (8.0-16.0) BUN 17 (8-23) mg/dL Creatinine 0.8 (0.6-1.1) mg/dL POC Creatinine 0.7 (0.6-1.2) mg/dL GFR Calculation 79 Glucose 127 H (70-105) mg/dL Calcium 9.2 (8.6-10.4) mg/dL Total Bilirubin 0.4 (0.1-1.0) mg/dL AST 24 (<32) U/L ALT 21 (<40) U/L Alkaline Phosphatase 127 H (39-117) U/L Total Protein 6.9 (5.9-8.4) gm/dL Albumin 3.9 (3.2-5.2) gm/dL Globulin 3.0 (2.2-3.7) gm/dL Albumin/Globulin Ratio 1.3 (1.0-2.3) Lipase 26 (7-60) U/L Radiology Data Radiology results reviewed: Yes I reviewed the patient's radiology results. Discharge Plan Patient/Caregiver Discharge Instructions Pt seen by BUSINESS PROCESS ASSOCIATE/PA only: No Clinical Impression: Incarcerated hernia, Abdominal pain Patient Disposition: Xfer As Inpt ([facility]) Follow up with: Amanda Chavez MD [Primary Care Provider] - Prescriptions: No Action levothyroxine 200 mcg capsule 200 mcg PO QDAY RF: 0 imipramine HCl 10 mg tablet 50 mg PO ONCE RF: 0 (DME) CPAP Qty: 1 RF: 0 (DME) nasal compound Qty: 1 RF: 0 furosemide 20 mg tablet 20 mg PO QAM RF: 0 ipratropium-albuterol 3 ML solution for nebulization 3 ml NEB Q4HP PRN (Reason: Shortness Of Breath) RF: 0 bisoprolol fumarate 5 MG tablet 5 mg PO DAILY RF: 0 pantoprazole 40 MG tablet 40 mg PO QAMAC RF: 0 albuterol sulfate 6.7 GM HFA aerosol inhaler 2 puff IH QID PRN (Reason: Shortness Of Breath) RF: 0 dicyclomine 10 MG capsule 20 mg PO BIDP PRN (Reason: Diarrhea) RF: 0 rosuvastatin 40 MG tablet 40 mg PO HS RF: 0 DULoxetine HCL 60 mg PO BID RF: 0 [place] Carbonate 300 mg/day PO QAM RF: 0 [place] Carbonate 600 mg PO HS RF: 0 simethicone 80 mg tablet 160 mg PO QIDP PRN (Reason: Abdominal Distention) RF: 0 buspirone 7.5 mg tablet 15 mg PO TID RF: 0 gabapentin 100 mg capsule 200 mg PO Q8 RF: 0 naproxen 500 mg tablet 250 mg PO BID RF: 0 trazodone 50 mg tablet 150 mg PO HS RF: 0 pramipexole 1 mg Tablet 1 mg PO BID RF: 0 clobetasol 0.05 % Cream 1 applic TOPICAL QDAY RF: 0 ferrous sulfate 325 mg (65 mg iron) Tablet 325 mg PO QDAY RF: 0 docusate sodium 100 mg Capsule 100 mg PO QDAY RF: 0 budesonide 0.5 mg/2 mL suspension for nebulization 2 ml irrigation DAILY RF: 0 fluticasone propionate 50 mcg/actuation [place],Suspension 1 spray INTRANASAL QDAY PRN (Reason: Congestion) RF: 0 budesonide-formoterol [Symbicort] 80-4.5 mcg/actuation Hfa Aerosol Inhaler 2 puff INHALATION BID RF: 0 prednisone 20 mg tablet 40 mg PO QDAY Qty: 8 RF: 0 cyclobenzaprine 10 MG tablet 10 mg PO TIDP PRN (Reason: Muscle Spasm) Qty: 21 RF: 0 oxycodone 5 mg tablet 5 - 10 mg PO Q6-8HP PRN (Reason: Pain) Qty: 10 RF: 0
[2020-06-17 22:12] LABS: POC Creatinine 0.7 mg/dL (0.6-1.2)
[2020-06-17] MEDS ORDERED: morphine 4 MG/ML VIAL IM ONE (22:13)
[2020-06-17] MEDS ORDERED: ONDANSETRON 4 MG ODT TABLET SL ONE (22:13)
[2020-06-17 23:30] LABS: Basophils # (Auto) 0.07 K/mcL (0.00-0.20); Basophils % (Auto) 0.5 % (0.0-2.0); Eosinophils # (Auto) 0.37 K/mcL (0.00-0.70); Eosinophils % (Auto) 2.4 % (0.0-7.0); Hematocrit 43.1 % (36.0-48.0); Hemoglobin 13.6 g/dL (12.0-15.0); Lymphocytes # (Auto) 2.42 K/mcL (1.50-4.80); Lymphocytes % (Auto) 15.6 % (15.0-49.0); Mean Cell Volume 94.1 fL (80.0-100.0); Mean Corpuscular HGB Conc 31.6 g/dL (31.0-36.0); Mean Platelet Volume 8.8 fL (7.4-10.4); Monocytes # (Auto) 0.78 K/mcL (0.10-0.90); Neutrophils % (Auto) 76.5 % (38.0-78.0); Platelet Count 239 K/mcL (140-440); RBC 4.58 M/mcL (4.00-5.20); Red Cell Distribution Width 13.2 % (11.5-14.5); WBC 15.5 K/mcL (4.5-11.0)
[2020-06-17 23:50] LABS: ALT/SGPT 21 U/L (<40); AST/SGOT 24 U/L (<32); Albumin 3.9 gm/dL (3.2-5.2); Albumin/Globulin Ratio 1.3 (1.0-2.3); Alkaline Phosphatase 127 U/L (39-117); Bilirubin,Total 0.4 mg/dL (0.1-1.0); Blood Urea Nitrogen 17 mg/dL (8-23); Calcium 9.2 mg/dL (8.6-10.4); Carbon Dioxide 24 mmol/L (22-30); Chloride 101 mmol/L (96-108); Glomerular Filtration Rate 79; Glucose 127 mg/dL (70-105)
[2020-06-18] MEDS: ACETAMINOPHEN 650 MG/65 ML BAG IV PRN ×3 (03:21→16:05)
[2020-06-18] MEDS: 0.9 % SODIUM CHLORIDE 1,000 ML IV SCH ×3 (04:09→23:25)
[2020-06-18] MEDS: 0.9 % SODIUM CHLORIDE 10 ML SYRINGE IV SCH ×3 (06:03→21:39)
[2020-06-18 06:29] LABS: Prothrombin Time 13.3 sec (11.9-14.5)
--- NOTE | 2020-06-18 07:03 | XRay Report ---
CLINICAL INFORMATION: Preop COMPARISON: 10/09/2017 TECHNIQUE: Portable FINDINGS: Suboptimal inspiratory result noted. The heart size, mediastinum and pulmonary vessels are unremarkable. The lungs are clear. There are no effusions. The bones and soft tissues are within normal limits. IMPRESSION: Normal chest. Interpreted and Authenticated by: Spencer Taylor 06/18/20
--- NOTE | 2020-06-18 08:17 | Cat Scan Report ---
CLINICAL INFORMATION: Diffuse abdominal pain. Known hernia COMPARISON: Abdomen and pelvic CT 01/07/2020 TECHNIQUE: 0.625 mm helical slices were obtained from the mid heart through the subtrochanteric regions. Following reconstruction, 2.5 mm sagittal, coronal and axial reformatted images were processed and reviewed at bone and soft tissue windows.The exam was performed using radiation dose optimization techniques including, but not limited to, automated exposure control, adjustment of the mA and/or kV according to patient size and use of iterative reconstruction technique. FINDINGS: Lung bases show minimal subsegmental atelectasis. No effusion. The visualized heart is mildly enlarged. Abdominal images the gallbladder is surgically absent. Intrahepatic and common bile duct normal caliber: CBD is 6 mm. The liver, both kidneys, adrenal glands, spleen, pancreas and aorta, including aortic branches, are normal in size configuration and attenuation without focal lesion. There is no free air, free fluid or adenopathy. Pelvic images show hysterectomy and oophorectomy changes. The urinary bladder is normal. A moderate (7 cm) hernia through the right lower quadrant anterior abdominal wall contains a segment of mid transverse colon. There is mild edema in the mesenteric fat within the hernia sac. It does not result in colonic obstruction: The small bowel and proximal colon are normal diameter and distal colon contains a normal amount of stool. A second small 3 cm hernia in the epigastric region contains only mesenteric fat. There is also a 2 cm periumbilical hernia, adjacent to a repair, containing only mesenteric fat. Both the smaller hernias are unchanged from previous exam. Bone windows show only moderate degenerative change lower lumbar spine. Spinal stimulator in satisfactory position IMPRESSION: 1. 7 cm hernia in the right lower quadrant anterior abdominal wall containing a short segment of mid transverse colon. No evidence of bowel obstruction or strangulation. No change 2. Two small stable anterior abdominal wall hernias containing only mesenteric fat: 3 cm in the epigastric region near midline 2 cm periumbilical region. No change from prior CT. Interpreted and Authenticated by: Spencer Taylor 06/18/20
[2020-06-18] MEDS: DOCUSATE SODIUM 100 MG CAPSULE PO SCH ×2 (10:52→21:34)
--- NOTE | 2020-06-18 11:03 | General Surg History&Physical ---
HPI History of Present Illness Patient information: Note initiated : 06/18/20 at 10:45 am Service Date, if different from initiated Date: [] Patient: Saundra Cardona a 60 y/o F admitted on 06/18/20 for lower abd pain. Chief Complaint: [] Chief complaint: abdominal pain; incarcerated incisional hernia History of present illness: Ms. Cardona is a 60 year old F with long history of multiple incisional hernias and is status post 2 hernia repairs previously. She has a 2 day history of increasing abdominal pain with swelling of her abdomen, primarily in the left lower quadrant. She did not have flatus or bowel movement. She presented to the emergency room where she was noted to have a tender mass in the right lower quadrant with CT evidence of an incarcerated loop of colon in the hernia sac in the left lower quadrant and with evidence of incarcerated fat in the upper midline. Patient has had increasing severe abdomi nal pain. She has no complete obstruction of her colon which has not changed in the past 11 hours. Patient is scheduled for laparotomy with incisional hernia repair Constitutional Constitutional: Present daytime sleepiness, fatigue, snoring, stops breathing during sleep (sleep apnea) and weight gain EENT Eyes: Absent blurry vision and loss of vision Ears: Absent decreased hearing and tinnitus Nose, mouth and throat: Absent abnormal hearing and dysphagia Cardiovascular Cardiovascular: Present dyspnea on exertion, leg edema, lightheadedness and pedal edema Respiratory Respiratory: Present cough, dyspnea on exertion and snoring Gastrointestinal Gastrointestinal: Present abdominal pain, change in bowel habits, constipation and nausea Genitourinary Genitourinary: Present nocturia Musculoskeletal Musculoskeletal: Present abnormal gait, arthralgias, back pain, muscle cramps and myalgias Integumentary Integumentary: Absent new lesions, pruritus and rash Neurological Neurological: Present abnormal gait, restless legs and tremor(s) Psychiatric Psychiatric: Present anxiety, depression and mood swings Endocrine Endocrine: Present fatigue Hematologic/Lymphatic Hematologic/Lymphatic: Absent easy bleeding, easy bruising and lymphadenopathy PFSH PFSH All Active Problems (Updated 06/18/20 @ 11:02 by Deepika Avila MD) Incarcerated incisional hernia (Acute) Blurred vision, bilateral (Acute) Abdominal pain (Acute) Leg pain, right (Acute) Constipation due to opioid therapy (Acute) Epistaxis (Acute) Anxiety (Acute) Sprain of foot, right (Acute) Itching with irritation (Acute) Pruritus (Acute) Lumbar back pain (Acute) Device in situ (Acute) Incarcerated hernia (Acute) Numbness of left hand (Acute) Left arm pain (Acute) RLS (restless legs syndrome) (Chronic) Tenosynovitis, de Quervain (Acute) DC on CPAP (Chronic) DC (obstructive sleep apnea) (Chronic) COPD (chronic obstructive pulmonary disease) (Chronic) Wasp sting (Acute) Allergic reaction to insect bite (Acute) Cracked skin on feet (Acute) S/P TKR (total knee replacement) (Chronic) Lumbago (Acute) Orthostatic hypotension (Acute) Dizziness (Acute) Shortness of breath (Acute) Hyperventilation (Acute) Influenza B (Acute) Anemia (Acute) Muscle pain (Acute) Hemoptysis (Acute) COPD exacerbation (Acute) Hemoptysis (Acute) Costalchondritis (Acute) Medical History Anxiety (Chronic) Arthritis (Chronic) Asthma (Chronic) Depression (Chronic) GERD (gastroesophageal reflux disease) (Chronic) Hernia (Chronic) High cholesterol (Chronic) Hypertension (Chronic) Lumbago (Acute) DC (obstructive sleep apnea) (Chronic) DC (obstructive sleep apnea) (Chronic) DC on CPAP (Chronic) Thyroid disease (Chronic) UTI (urinary tract infection) (Resolved) Surgical History Cholecystectomy planned (Chronic) H/O: hysterectomy (Chronic) History of appendectomy (Chronic) S/P hernia surgery (Chronic) S/P left knee surgery (Chronic) S/P right knee surgery (Chronic) S/P TKR (total knee replacement) (Chronic) Family History Father , renal failure No problems noted. Brother No problems noted. Brother 3-vessel coronary artery disease Sister Cervical cancer Social History marital status: single physical activity: none smoking status: Former smoker quit date: 06/09/04 pack-years: 27 alcohol intake frequency: a few times a month substance use type: does not use MEDS/ALLERGIES Home Medications and Allergies Home Medications Medication Instructions Recorded Confirmed Type [place] Carbonate 300 mg/day PO QAM 10/06/18 06/18/20 History [place] Carbonate 600 mg PO HS 10/06/18 06/18/20 History albuterol sulfate 2 puff IH Q4HP PRN 10/06/18 06/18/20 History bisoprolol fumarate 5 mg PO DAILY 10/06/18 06/18/20 History duloxetine 60 mg PO QDAY 10/06/18 06/18/20 History pantoprazole 40 mg PO BID 10/06/18 06/18/20 History rosuvastatin 40 mg PO HS 10/06/18 06/18/20 History levothyroxine 200 mcg capsule 200 mcg PO QDAY 10/19/18 06/18/20 History imipramine HCl 10 mg tablet 50 mg PO ONCE tab 02/22/19 06/18/20 History simethicone 80 mg tablet 160 mg PO QIDP PRN 02/22/19 06/18/20 History buspirone 7.5 mg tablet 15 mg PO TIDP PRN tab 11/10/19 06/18/20 History furosemide 20 mg tablet 20 mg PO QAM 11/10/19 06/18/20 History budesonide-formoterol [Symbicort] 1 puff INHALATION BID 01/08/20 06/18/20 History clobetasol 1 applic TOPICAL BIDP PRN 01/08/20 06/18/20 History ferrous sulfate 325 mg PO QDAY 01/08/20 06/18/20 History fluticasone propionate 1 spray INTRANASAL BIDP PRN 01/08/20 06/18/20 History pramipexole 1 mg PO BID 01/08/20 06/18/20 History trazodone 150 mg PO HS 01/08/20 06/18/20 History Probiotic 1 cap PO DAILY 06/18/20 06/18/20 History albuterol sulfate 0.63 mg INHALATION Q6HP PRN 06/18/20 06/18/20 History apixaban [Eliquis] 5 mg PO BID 06/18/20 06/18/20 History carboxymethylcellulose sodium 1 drp OPHTHALMIC (EYE) QIDP PRN 06/18/20 06/18/20 History cholecalciferol (vitamin D3) 125 mcg PO DAILY 06/18/20 06/18/20 History [Vitamin D3] cyclobenzaprine 10 mg PO BIDP PRN 06/18/20 06/18/20 History dicyclomine 20 mg PO BID 06/18/20 06/18/20 History docusate sodium 100 mg PO DAILY 06/18/20 06/18/20 History epinephrine 0.3 mg IM PRN PRN 06/18/20 06/18/20 History estradiol 1 patch TRANSDERMAL ONCE 06/18/20 06/18/20 History etodolac 500 mg PO BID 06/18/20 06/18/20 History sodium fluoride-pot nitrate 1 applic DENTAL DAILY 06/18/20 06/18/20 History thiamine HCl (vitamin B1) [Vitamin 100 mg PO DAILY 06/18/20 06/18/20 History B-1] Allergies Allergy/AdvReac Type Severity Reaction Status Date / Time fexofenadine [From KAREL] Allergy Intermediate RASH Verified 06/17/20 21:23 rofecoxib [From VIOXX] Allergy Intermediate RASH Verified 06/17/20 21:23 NARCOTICS AdvReac Mild HALLUCINATE Uncoded 03/23/19 11:54 Physical Examination Vital Signs Vital signs: Temp Pulse Resp BP Pulse Ox 98.2 F 79 20 122/69 95 06/18/20 08:00 06/18/20 08:00 06/18/20 08:00 06/18/20 08:00 06/18/20 08:00 General physical appearance General physical exam: well developed, well nourished, moderate distress, moderate pain and obese Eyes Eye exam: PERRL and normal ocular movement ENT ENT exam: no hearing loss and no congestion; negative decreased hearing Head Head exam IM: Present atraumatic, normal inspection and normocephalic Neck Neck exam: no masses, no bruits, trachea midline, no lymphadenopathy and no venous distension Cardiovascular Cardiovascular exam IM: Present normal rate and rhythm, RRR, +S1 and +S2; Absent JVD and systolic murmur Respiratory Respiratory exam: normal expansion, normal respiratory effort, clear to percussion and clear to auscultation Abdomen Abdomen: Present tender (diffusely tender right lower quadrant below the level of the umbilicus with mass protruding from the umbilical area to the right lower quadrant) Hernia: Present incisional (large incisional hernia infraumbilical area extending into the right lower quadrant) Integumentary Integumentary: Present no rash, no growths and no abnormal pigmentation Neurologic Neurologic: Present normal coordination and normal sensation Musculoskeletal Musculoskeletal: Present normal gait, normal posture and other Psychiatric Psychiatric: Present oriented to time, oriented to person, oriented to place, speech is normal and memory intact Results Labs Result diagrams: 06/17/20 22:02 06/17/20 22:02 Labs: Abnormal lab results 06/17/20 06/17/20 Range/Units 22:02 22:02 WBC 15.5 H (4.5-11.0) K/mcL Absolute Neutrophils 11.88 H (1.80-8.00) K/mcL Glucose 127 H (70-105) mg/dL Alkaline Phosphatase 127 H (39-117) U/L Diabetes panel 06/17/20 Range/Units 22:02 Sodium 135 (133-145) mmol/L Potassium 3.7 (3.3-5.1) mmol/L Chloride 101 (96-108) mmol/L Carbon Dioxide 24 (22-30) mmol/L BUN 17 (8-23) mg/dL Creatinine 0.8 (0.6-1.1) mg/dL Glucose 127 H (70-105) mg/dL Calcium 9.2 (8.6-10.4) mg/dL AST 24 (<32) U/L ALT 21 (<40) U/L Alkaline Phosphatase 127 H (39-117) U/L Total Protein 6.9 (5.9-8.4) gm/dL Albumin 3.9 (3.2-5.2) gm/dL Calcium panel 06/17/20 Range/Units 22:02 Calcium 9.2 (8.6-10.4) mg/dL Albumin 3.9 (3.2-5.2) gm/dL Pituitary panel 06/17/20 Range/Units 22:02 Sodium 135 (133-145) mmol/L Potassium 3.7 (3.3-5.1) mmol/L Chloride 101 (96-108) mmol/L Carbon Dioxide 24 (22-30) mmol/L BUN 17 (8-23) mg/dL Creatinine 0.8 (0.6-1.1) mg/dL Glucose 127 H (70-105) mg/dL Calcium 9.2 (8.6-10.4) mg/dL Adrenal panel 06/17/20 Range/Units 22:02 Sodium 135 (133-145) mmol/L Potassium 3.7 (3.3-5.1) mmol/L Chloride 101 (96-108) mmol/L Carbon Dioxide 24 (22-30) mmol/L BUN 17 (8-23) mg/dL Creatinine 0.8 (0.6-1.1) mg/dL Glucose 127 H (70-105) mg/dL Calcium 9.2 (8.6-10.4) mg/dL Total Bilirubin 0.4 (0.1-1.0) mg/dL AST 24 (<32) U/L ALT 21 (<40) U/L Alkaline Phosphatase 127 H (39-117) U/L Total Protein 6.9 (5.9-8.4) gm/dL Albumin 3.9 (3.2-5.2) gm/dL All other labs normal. A/P Assessment and plan (1) Incarcerated incisional hernia: Status: Acute (2) Constipation due to opioid therapy: Status: Acute (3) DC (obstructive sleep apnea): Status: Chronic (4) COPD (chronic obstructive pulmonary disease): Status: Chronic Qualifiers: COPD type: unspecified COPD Qualified Code(s): J44.9 - Chronic obstructive pulmonary disease, unspecified (5) Anxiety: Status: Acute Narrative A/P Narrative: patient is counseled for laparotomy with repair of the incisional hernia. She will be treated with Relistor, or in the postoperative period to improve colonic peristalsis. She will have antibiotic coverage during the perioperative period Time Spent With Patient Time: Total time spent is greater than 50% in coordination of care (as documented) at patient's floor/unit and/or counseling patient:
[2020-06-18] MEDS ORDERED: FLUTICASONE PROPIONATE SPRAY.NAS NS PRN (11:12)
[2020-06-18] MEDS ORDERED: ALBUTEROL SULFATE 200 PUFF INHALER IH PRN (11:12)
[2020-06-18] MEDS ORDERED: ALBUTEROL SULFATE 0.63 MG INHALATION PRN (11:12)
[2020-06-18] MEDS ORDERED: CARBOXYMETHYLCELLULOSE SODIUM 1 EACH DROPER.GEL OD PRN (11:24)
[2020-06-18] MEDS ORDERED: CARBOXYMETHYLCELLULOSE SODIUM 1 EACH DROPER.GEL OU PRN (11:30)
[2020-06-18] MEDS: metroNIDAZOLE 500 MG/100 ML BAG IV SCH ×3 (11:39→23:31)
[2020-06-18] MEDS: HYDROmorphone 1 MG/ML SYRINGE IV PRN ×2 (11:50→13:45)
[2020-06-18] MEDS: busPIRone 15 MG TABLET PO PRN ×2 (11:50→21:34)
[2020-06-18] MEDS: LEVOFLOXACIN 750 MG/150 ML BAG IV SCH (13:12)
[2020-06-18] MEDS: ONDANSETRON 4 MG/2 ML VIAL IV PRN (14:58)
[2020-06-18] MEDS ORDERED: SENNOSIDES 1 TABLET PO SCH (21:00)
[2020-06-18] MEDS ORDERED: traZODone HCL 50 MG TABLET PO SCH (21:00)
[2020-06-18] MEDS ORDERED: IMIPRAMINE 25 MG TABLET PO SCH (21:00)
[2020-06-18] MEDS ORDERED: [UNRECOGNIZED DRUG - OTHER] PO SCH (21:00)
[2020-06-18] MEDS: PRAMIPEXOLE 1 MG TABLET PO SCH (21:34)
[2020-06-18] MEDS: BUDESONIDE FORMOTEROL INH SCH (21:36)
[2020-06-19] MEDS: metroNIDAZOLE 500 MG/100 ML BAG IV SCH ×3 (05:06→23:35)
[2020-06-19] MEDS: HYDROmorphone 1 MG/ML SYRINGE IV PRN ×3 (05:08→22:18)
[2020-06-19] MEDS: 0.9 % SODIUM CHLORIDE 10 ML SYRINGE IV SCH ×3 (06:25→20:27)
[2020-06-19 06:29] LABS: Basophils # (Auto) 0.03 K/mcL (0.00-0.20); Basophils % (Auto) 0.4 % (0.0-2.0); Eosinophils % (Auto) 2.8 % (0.0-7.0); Hematocrit 37.6 % (36.0-48.0); Hemoglobin 12.3 g/dL (12.0-15.0); Lymphocytes # (Auto) 1.44 K/mcL (1.50-4.80); Lymphocytes % (Auto) 19.9 % (15.0-49.0); Mean Cell Volume 91.9 fL (80.0-100.0); Mean Corpuscular HGB Conc 32.7 g/dL (31.0-36.0); Mean Platelet Volume 8.8 fL (7.4-10.4); Monocytes # (Auto) 0.51 K/mcL (0.10-0.90); Monocytes % (Auto) 7.1 % (1.0-12.0); Neutrophils % (Auto) 69.8 % (38.0-78.0); Platelet Count 176 K/mcL (140-440); RBC 4.09 M/mcL (4.00-5.20); Red Cell Distribution Width 13.2 % (11.5-14.5); WBC 7.2 K/mcL (4.5-11.0)
[2020-06-19 06:47] LABS: ALT/SGPT 20 U/L (<40); AST/SGOT 21 U/L (<32); Albumin 3.6 gm/dL (3.2-5.2); Albumin/Globulin Ratio 1.4 (1.0-2.3); Alkaline Phosphatase 106 U/L (39-117); Bilirubin,Direct < 0.2 mg/dL (<0.3); Bilirubin,Total 0.4 mg/dL (0.1-1.0); Blood Urea Nitrogen 10 mg/dL (8-23); Calcium 8.6 mg/dL (8.6-10.4); Carbon Dioxide 26 mmol/L (22-30); Chloride 104 mmol/L (96-108); Globulin 2.5 gm/dL (2.2-3.7); Glomerular Filtration Rate 98; Glucose 97 mg/dL (70-105); INR 1.1 (0.9-1.1); Lactate Dehydrogenase 239 U/L (135-225); Phosphorous 2.8 mg/dL (2.5-4.5); Prothrombin Time 14.3 sec (11.9-14.5); Triglycerides 150 mg/dL (<150); Uric Acid 3.9 mg/dL (2.5-8.0)
[2020-06-19] MEDS ORDERED: LEVOTHYROXINE 100 MCG TABLET PO SCH (07:30)
[2020-06-19] MEDS: DOCUSATE SODIUM 100 MG CAPSULE PO SCH (08:04)
[2020-06-19] MEDS: 0.9 % SODIUM CHLORIDE 1,000 ML IV SCH ×3 (08:08→20:26)
[2020-06-19] MEDS: busPIRone 15 MG TABLET PO PRN ×2 (08:08→22:18)
[2020-06-19] MEDS: PRAMIPEXOLE 1 MG TABLET PO SCH ×2 (08:08→22:17)
[2020-06-19] MEDS: LEVOFLOXACIN 750 MG/150 ML BAG IV SCH (08:10)
[2020-06-19] MEDS: BUDESONIDE FORMOTEROL INH SCH ×2 (08:11→20:27)
[2020-06-19] MEDS ORDERED: LEVOTHYROXINE 200 MCG PO SCH (09:00)
[2020-06-19] MEDS ORDERED: DULoxetine 30 MG CAPSULE PO SCH (09:00)
[2020-06-19] MEDS: ONDANSETRON 4 MG/2 ML VIAL IV PRN (11:55)
[2020-06-19] MEDS ORDERED: PROPOFOL 200 MG/20 ML VIAL IV ONE (14:17)
[2020-06-19] MEDS ORDERED: ROCURONIUM 10 MG/ML ML IV ONE (14:17)
[2020-06-19] MEDS ORDERED: PHENYLEPHRINE 10 MG/ML VIAL ONE (14:17)
[2020-06-19] MEDS ORDERED: SUGAMMADEX SODIUM 200 MG/2 ML VIAL IV ONE (14:17)
[2020-06-19] MEDS ORDERED: ROPIVACAINE HCL/PF 20 ML VIAL IJ ONE (14:17)
[2020-06-19] MEDS ORDERED: LIDOCAINE HCL/PF 100 MG/5 ML SYRINGE IV ONE (14:17)
[2020-06-19] MEDS ORDERED: DEXAMETHASONE 10 MG/ML VIAL ONE (14:17)
[2020-06-19] MEDS ORDERED: fentaNYL 250 MCG/5 ML VIAL IV ONE (14:17)
[2020-06-19] MEDS ORDERED: ONDANSETRON 4 MG/2 ML VIAL ONE (14:17)
[2020-06-19] MEDS ORDERED: KETAMINE 100 MG/ML ML ONE (14:17)
[2020-06-19] MEDS ORDERED: BACITRACIN 50,000 UNIT VIAL IR ONE (14:42)
[2020-06-19] MEDS ORDERED: diphenhydrAMINE 50 MG/ML VIAL IV PRN (16:12)
[2020-06-19] MEDS ORDERED: LACTATED RINGERS 250 ML IV PRN (16:12)
[2020-06-19] MEDS ORDERED: HYDROmorphone 0.5 MG/0.5 ML SYRINGE IV PRN (16:12)
[2020-06-19] MEDS ORDERED: ONDANSETRON 4 MG/2 ML VIAL IV PRN ×3 (16:12→18:27)
[2020-06-19] MEDS ORDERED: fentaNYL 100 MCG/2 ML VIAL IV PRN ×2 (16:12→17:09)
[2020-06-19] MEDS ORDERED: PROMETHAZINE 25 MG/ML VIAL IV PRN (16:12)
[2020-06-19] MEDS ORDERED: FLUMAZENIL 0.1 MG/ML ML IV PRN ×2 (16:12→17:09)
[2020-06-19] MEDS ORDERED: IPRATROPIUM/ALBUTEROL 3 ML AMPUL.NEB NEB PRN ×2 (16:12→17:09)
[2020-06-19] MEDS ORDERED: BENZOCAINE/MENTHOL 1 LOZENGE PO PRN (16:12)
[2020-06-19] MEDS ORDERED: MEPERIDINE 25 MG/ML SYRINGE IV PRN (16:12)
[2020-06-19] MEDS ORDERED: NALOXONE HCL 0.4 MG/ML VIAL IV PRN ×2 (16:12→17:09)
[2020-06-19] MEDS ORDERED: LACTATED RINGERS 1,000 ML IV SCH ×2 (16:15→17:15)
--- NOTE | 2020-06-19 16:45 | Brief Operative Note ---
Brief Operative Note Date of procedure: 06/19/20 Pre-op diagnosis: recurrent incisional hernia with colon incarceration Post-op diagnosis: other (recurrent incisional hernia with colon incarceration ) Procedure: LAPAROTOMY WITH EXPLANTATION OF MESH GRAFT BILATERAL SEPARATION OF COMPONENTS PERITONEAL ADHESIOLYSIS MESH GRAFT REPAIR OF INCISIONAL HERNIA,RECURRENT Grafts/Implants: Yes (SURGIMESH 16U23GP OVAL SKIRTED MESH GRAFT;10 DERIK DRAIN X3) Anesthesia: GETA Findings: RECURRENT INCISIONAL HERNIA WITH SEPARATION OF MESH GRAFT EXTENSIVE INTRA-ABDOMINAL ADHESIONS TIGHT INCARCERATION OF COLON IN HERNIA DEFECT Complications: none Surgeon: Deepika Avila Estimated blood loss (cc): 100 Specimens Removed/Pathology: none sent Condition: stable Disposition: PACU
[2020-06-19] MEDS ORDERED: ACETAMINOPHEN 1,000 MG/100 ML BAG IV ONE (17:09)
[2020-06-19] MEDS ORDERED: METHOCARBAMOL 1,000 MG/10 ML VIAL IV PRN (17:09)
[2020-06-19] MEDS ORDERED: ALBUTEROL SULFATE 200 PUFF INHALER IH PRN (18:27)
[2020-06-19] MEDS ORDERED: FLUTICASONE PROPIONATE SPRAY.NAS NS PRN (18:27)
[2020-06-19] MEDS: METOCLOPRAMIDE 10 MG/2 ML VIAL IV SCH (20:26)
[2020-06-19] MEDS: IMIPRAMINE 25 MG TABLET PO SCH (20:26)
[2020-06-19] MEDS: traZODone HCL 50 MG TABLET PO SCH (20:27)
[2020-06-19] MEDS: LITHIUM CARBONATE 300 MG PO SCH (20:28)
[2020-06-20] MEDS ORDERED: ACETAMINOPHEN 1,000 MG/100 ML BAG IV SCH
[2020-06-20] MEDS: METOCLOPRAMIDE 10 MG/2 ML VIAL IV SCH ×5 (00:48→23:55)
[2020-06-20] MEDS: HYDROmorphone 1 MG/ML SYRINGE IV PRN ×4 (03:28→22:20)
[2020-06-20] MEDS: 0.9 % SODIUM CHLORIDE 1,000 ML IV SCH ×4 (04:56→22:19)
[2020-06-20] MEDS: 0.9 % SODIUM CHLORIDE 10 ML SYRINGE IV SCH ×3 (06:07→22:22)
[2020-06-20 07:03] LABS: Basophils # (Auto) 0.01 K/mcL (0.00-0.20); Basophils % (Auto) 0.1 % (0.0-2.0); Eosinophils # (Auto) 0 K/mcL (0.00-0.70); Eosinophils % (Auto) 0 % (0.0-7.0); Hematocrit 41.5 % (36.0-48.0); Hemoglobin 13.3 g/dL (12.0-15.0); Lymphocytes # (Auto) 0.57 K/mcL (1.50-4.80); Lymphocytes % (Auto) 4.9 % (15.0-49.0); Mean Cell Volume 92.8 fL (80.0-100.0); Mean Platelet Volume 9.5 fL (7.4-10.4); Monocytes # (Auto) 0.67 K/mcL (0.10-0.90); Monocytes % (Auto) 5.8 % (1.0-12.0); Neutrophils % (Auto) 89.2 % (38.0-78.0); Platelet Count 204 K/mcL (140-440); RBC 4.47 M/mcL (4.00-5.20); WBC 11.6 K/mcL (4.5-11.0)
[2020-06-20 07:57] LABS: ALT/SGPT 21 U/L (<40); AST/SGOT 26 U/L (<32); Albumin 3.5 gm/dL (3.2-5.2); Albumin/Globulin Ratio 1.1 (1.0-2.3); Alkaline Phosphatase 107 U/L (39-117); Bilirubin,Direct < 0.2 mg/dL (<0.3); Bilirubin,Total 0.3 mg/dL (0.1-1.0); Blood Urea Nitrogen 6 mg/dL (8-23); Calcium 8.8 mg/dL (8.6-10.4); Carbon Dioxide 24 mmol/L (22-30); Chloride 104 mmol/L (96-108); Globulin 3.1 gm/dL (2.2-3.7); Glomerular Filtration Rate 79; Glucose 156 mg/dL (70-105); Lactate Dehydrogenase 329 U/L (135-225); Phosphorous 3.5 mg/dL (2.5-4.5); Triglycerides 85 mg/dL (<150)
[2020-06-20] MEDS: BUDESONIDE FORMOTEROL INH SCH ×2 (08:35→21:32)
[2020-06-20] MEDS: LEVOFLOXACIN 750 MG/150 ML BAG IV SCH (09:00)
[2020-06-20] MEDS ORDERED: PRAMIPEXOLE 1 MG TABLET PO SCH (09:00)
[2020-06-20] MEDS: DULoxetine 30 MG CAPSULE PO SCH (09:21)
[2020-06-20] MEDS: PRAMIPEXOLE 1 MG TABLET PO SCH ×2 (09:21→21:30)
[2020-06-20] MEDS: LITHIUM CARBONATE 300 MG PO SCH ×2 (09:22→21:29)
[2020-06-20] MEDS: busPIRone 15 MG TABLET PO PRN ×2 (09:27→17:48)
--- NOTE | 2020-06-20 16:58 | General Surgery Progress Note ---
SUBJECTIVE Subjective Patient information: Note initiated : 06/20/20 at 4:55 pm Service Date, if different from initiated Date: [] Patient: Saundra Cardona 60 y/o F admitted on 06/18/20 for lower abd pain. Chief Complaint: [] Principal diagnosis: postoperative incisional hernia Interval history: patient is doing well. Her vital signs are stable. Her pain is controlled. She has no flatus so far. Sodium 139, potassium 4, BUN 6, creatinine 0.8, white blood count 11.6, hemoglobin 13.3, hematocrit 41.5 Constitutional Vitals: Vital Signs Temp Pulse Resp BP Pulse Ox 98.2 F 81 20 114/68 95 06/20/20 16:00 06/20/20 16:00 06/20/20 16:00 06/20/20 16:00 06/20/20 16:00 Period Temp Pulse Resp BP Sys/Méndez Pulse Ox Last 24 Hr 97.3 F-98.9 F 71-97 12-20 114-168/68-97 91-100 Intake and Output 06/20/20 06/20/20 06/20/20 05:59 13:59 21:59 Intake Total 1120 1300 150 Output Total 4130 1750 290 Balance -3010 -450 -140 Weight 243 lb 8 oz Patient Weight 06/21/20 05:59 Weight 243 lb 8 oz Intake & Output: Intake & Output 06/20/20 06/20/20 06/20/20 05:59 13:59 21:59 Intake Total 1120 1300 150 Output Total 4130 1750 290 Balance -3010 -450 -140 Weight 243 lb 8 oz Intake: IV 1000 1150 Sodium Chloride 0.9% 1,000 ml @ 1000 1000 100 mls/hr IV .Q10H [facility] Rx#: [id number] Oral 120 150 150 Output: Gastric Drainage 240 Left Nare NG/OG 240 Drainage 190 50 40 Left Abdomen 70 15 Medial Abdomen 80 50 15 Right Abdomen 40 10 Urine Catheter Amount 3700 1700 250 Other: Percent of Meal Consumed popscicle popscicle Feeding Ability Assist with Tray Set Up Assist with Tray Set Up Urine Appearance Clear Clear Uretheral (Leo) Clear Urine Color Pale Straw Straw Uretheral (Leo) Bright Yellow Urine Odor Normal Normal Normal Uretheral (Leo) Normal Head Head exam: Present atraumatic, normal inspection and normocephalic Eye Pupils: Present normal accommodation and PERRL ENT ENT exam: Present normal exam, normal external ear exam and normal oropharynx Neck Neck exam: Present full ROM; Absent tenderness Respiratory Respiratory exam: Present normal respiratory exam and CTAB; Absent rales, rhonchi and wheezes Cardiovascular Cardiovascular exam: Present normal rate and rhythm, RRR, +S1 and +S2; Absent gallop and JVD GI/Abdominal GI/Abdominal exam: Present normal bowel sounds, soft and firm; Absent rebound Additional comments: hypoactive bowel sounds; moderate incisional tenderness; MARCSO drain with serosanguineous drainage Extremities Exam Extremities exam: Present joint swelling (postoperative swelling left knee), pedal edema (1+ edema left lower extremity), tenderness (mild tenderness left knee) and neurovascular intact Additional comments: incision left knee evaluated and is healing nicely Neurological Exam Neurological exam: Present alert, CN II-XII intact, normal gait and oriented X3 A/P Assessment and plan (1) Incarcerated incisional hernia: Status: Acute (2) Constipation due to opioid therapy: Status: Acute (3) COPD (chronic obstructive pulmonary disease): Status: Chronic Qualifiers: COPD type: unspecified COPD Qualified Code(s): J44.9 - Chronic obstructive pulmonary disease, unspecified (4) DC (obstructive sleep apnea): Status: Chronic Narrative A/P Narrative: continue present therapy. Continue nothing by mouth Time Spent With Patient Time: Total time spent is greater than 50% in coordination of care (as documented) at patient's floor/unit and/or counseling patient:
[2020-06-20] MEDS: IMIPRAMINE 25 MG TABLET PO SCH (21:29)
[2020-06-20] MEDS: traZODone HCL 50 MG TABLET PO SCH (21:30)
[2020-06-21] MEDS: HYDROmorphone 1 MG/ML SYRINGE IV PRN ×3 (04:16→15:52)
[2020-06-21] MEDS: 0.9 % SODIUM CHLORIDE 1,000 ML IV SCH ×3 (07:25→20:41)
[2020-06-21] MEDS: METOCLOPRAMIDE 10 MG/2 ML VIAL IV SCH ×3 (07:26→17:54)
[2020-06-21] MEDS: 0.9 % SODIUM CHLORIDE 10 ML SYRINGE IV SCH ×3 (07:27→20:49)
[2020-06-21 08:33] LABS: Basophils # (Auto) 0.02 K/mcL (0.00-0.20); Basophils % (Auto) 0.2 % (0.0-2.0); Eosinophils # (Auto) 0.07 K/mcL (0.00-0.70); Eosinophils % (Auto) 0.6 % (0.0-7.0); Hematocrit 40.8 % (36.0-48.0); Hemoglobin 12.8 g/dL (12.0-15.0); Lymphocytes # (Auto) 1.39 K/mcL (1.50-4.80); Lymphocytes % (Auto) 11.5 % (15.0-49.0); Mean Cell Volume 93.2 fL (80.0-100.0); Mean Corpuscular HGB Conc 31.4 g/dL (31.0-36.0); Mean Platelet Volume 8.9 fL (7.4-10.4); Monocytes # (Auto) 1.05 K/mcL (0.10-0.90); Monocytes % (Auto) 8.7 % (1.0-12.0); Platelet Count 188 K/mcL (140-440); RBC 4.38 M/mcL (4.00-5.20); Red Cell Distribution Width 13.5 % (11.5-14.5); WBC 12.1 K/mcL (4.5-11.0)
[2020-06-21 09:07] LABS: ALT/SGPT 18 U/L (<40); AST/SGOT 23 U/L (<32); Albumin 3.7 gm/dL (3.2-5.2); Albumin/Globulin Ratio 1.4 (1.0-2.3); Alkaline Phosphatase 104 U/L (39-117); Bilirubin,Direct < 0.2 mg/dL (<0.3); Bilirubin,Total 0.5 mg/dL (0.1-1.0); Blood Urea Nitrogen 7 mg/dL (8-23); Calcium 8.9 mg/dL (8.6-10.4); Carbon Dioxide 29 mmol/L (22-30); Chloride 100 mmol/L (96-108); Globulin 2.6 gm/dL (2.2-3.7); Glomerular Filtration Rate 98; Glucose 117 mg/dL (70-105); Lactate Dehydrogenase 288 U/L (135-225); Phosphorous 2.4 mg/dL (2.5-4.5); Triglycerides 121 mg/dL (<150); Uric Acid 4.4 mg/dL (2.5-8.0)
[2020-06-21] MEDS: PRAMIPEXOLE 1 MG TABLET PO SCH ×2 (10:33→20:41)
[2020-06-21] MEDS: LEVOFLOXACIN 750 MG/150 ML BAG IV SCH (10:33)
[2020-06-21] MEDS: busPIRone 15 MG TABLET PO PRN ×2 (10:33→20:41)
[2020-06-21] MEDS: DULoxetine 30 MG CAPSULE PO SCH (10:33)
[2020-06-21] MEDS: BUDESONIDE FORMOTEROL INH SCH ×2 (10:34→20:49)
[2020-06-21] MEDS: LITHIUM CARBONATE 300 MG PO SCH ×2 (10:34→20:41)
[2020-06-21] MEDS: SIMETHICONE 80 MG TAB.CHEW CHEWED PRN ×2 (12:59→19:25)
[2020-06-21] MEDS ORDERED: BENZOCAINE 1 SPRAY BOTTLE TOPICAL ONE (20:01)
--- NOTE | 2020-06-21 20:07 | General Surgery Progress Note ---
SUBJECTIVE Subjective Patient information: Note initiated : 06/21/20 at 8:03 pm Service Date, if different from initiated Date: [] Patient: Saundra Cardona 60 y/o F admitted on 06/18/20 for lower abd pain. Chief Complaint: [] Principal diagnosis: postoperative incisional hernia Interval history: patient states that she feels better. Her pain is improved. She has not had any flatus so far. She denies nausea. She has been afebrile. The vital signs are stable. Potassium 3.2, BUN 7, creatinine 0.6, white blood count 12, hemoglobin 12.8, hematocrit 40.8 Constitutional Vitals: Vital Signs Temp Pulse Resp BP Pulse Ox 97.5 F 86 20 134/98 94 06/21/20 16:00 06/21/20 16:00 06/21/20 16:00 06/21/20 16:00 06/21/20 19:13 Period Temp Pulse Resp BP Sys/Méndez Pulse Ox Last 24 Hr 97.1 F-98.4 F 83-98 16-20 114-148/76-98 92-96 Intake and Output 06/21/20 06/21/20 06/21/20 05:59 13:59 21:59 Intake Total 120 1150 250 Output Total 1415 890 890 Balance -1295 260 -640 Intake & Output: Intake & Output 06/21/20 06/21/20 06/21/20 05:59 13:59 21:59 Intake Total 120 1150 250 Output Total 1415 890 890 Balance -1295 260 -640 Intake: IV 1000 Sodium Chloride 0.9% 1,000 ml @ 1000 100 mls/hr IV .Q10H [facility] Rx#: [id number] Oral 120 150 250 Output: Gastric Drainage 675 800 200 Left Nare NG/OG 675 800 200 Drainage 40 90 90 Left Abdomen 20 90 30 Medial Abdomen 10 30 Right Abdomen 10 30 Urine Catheter Amount 700 600 Other: Meal POPSCICLE Percent of Meal Consumed popscicle Feeding Ability Assist with Tray Set Up Assist with Tray Set Up Urine Appearance Clear Sediment Sediment Urine Color Bright Yellow Dark Yellow Dark Yellow Uretheral (Leo) Straw Straw Urine Odor Strong Strong Head Head exam: Present atraumatic, normal inspection and normocephalic ENT ENT exam: Present normal exam, normal external ear exam and normal oropharynx Neck Neck exam: Present full ROM; Absent tenderness Respiratory Respiratory exam: Present normal respiratory exam and CTAB; Absent rales, rhonchi and wheezes Cardiovascular Cardiovascular exam: Present normal rate and rhythm, RRR, +S1 and +S2; Absent gallop and JVD GI/Abdominal GI/Abdominal exam: Present normal bowel sounds, soft and firm; Absent rebound Additional comments: hypoactive bowel sounds; moderate incisional tenderness; MARCOS drain with serosanguineous drainage Extremities Exam Extremities exam: Present joint swelling (postoperative swelling left knee), pedal edema (1+ edema left lower extremity), tenderness (mild tenderness left knee) and neurovascular intact Additional comments: incision left knee evaluated and is healing nicely Neurological Exam Neurological exam: Present alert, CN II-XII intact, normal gait and oriented X3 Psychiatric Psychiatric exam: Present agitated and anxious Skin Skin exam: Present normal color and rash; Absent cyanosis A/P Assessment and plan (1) Incarcerated incisional hernia: Status: Acute (2) Constipation due to opioid therapy: Status: Acute (3) COPD exacerbation: Status: Acute Narrative A/P Narrative: continue patient on present therapy Time Spent With Patient Time: Total time spent is greater than 50% in coordination of care (as documented) at patient's floor/unit and/or counseling patient:
[2020-06-21] MEDS: IMIPRAMINE 25 MG TABLET PO SCH (20:40)
[2020-06-21] MEDS: traZODone HCL 50 MG TABLET PO SCH (20:40)
[2020-06-22] MEDS: METOCLOPRAMIDE 10 MG/2 ML VIAL IV SCH ×4 (00:38→17:39)
[2020-06-22] MEDS: HYDROmorphone 1 MG/ML SYRINGE IV PRN ×3 (01:28→20:48)
[2020-06-22] MEDS: 0.9 % SODIUM CHLORIDE 10 ML SYRINGE IV SCH ×3 (05:54→20:01)
[2020-06-22] MEDS: 0.9 % SODIUM CHLORIDE 1,000 ML IV SCH ×2 (06:27→18:29)
[2020-06-22] MEDS: busPIRone 15 MG TABLET PO PRN ×2 (08:26→20:06)
[2020-06-22] MEDS: DULoxetine 30 MG CAPSULE PO SCH (08:26)
[2020-06-22] MEDS: PRAMIPEXOLE 1 MG TABLET PO SCH ×2 (08:26→20:00)
[2020-06-22] MEDS: LEVOFLOXACIN 750 MG/150 ML BAG IV SCH (08:26)
[2020-06-22] MEDS: LITHIUM CARBONATE 300 MG PO SCH ×2 (08:27→20:00)
[2020-06-22 09:56] LABS: Basophils # (Auto) 0.05 K/mcL (0.00-0.20); Basophils % (Auto) 0.4 % (0.0-2.0); Eosinophils # (Auto) 0.21 K/mcL (0.00-0.70); Eosinophils % (Auto) 1.6 % (0.0-7.0); Hematocrit 46.5 % (36.0-48.0); Hemoglobin 14.2 g/dL (12.0-15.0); Lymphocytes # (Auto) 1.49 K/mcL (1.50-4.80); Lymphocytes % (Auto) 11.6 % (15.0-49.0); Mean Cell Volume 96.9 fL (80.0-100.0); Mean Corpuscular HGB Conc 30.5 g/dL (31.0-36.0); Monocytes # (Auto) 0.83 K/mcL (0.10-0.90); Monocytes % (Auto) 6.5 % (1.0-12.0); Neutrophils % (Auto) 79.9 % (38.0-78.0); Platelet Count 208 K/mcL (140-440); Red Cell Distribution Width 13.8 % (11.5-14.5); WBC 12.9 K/mcL (4.5-11.0)
[2020-06-22] MEDS: POTASSIUM PHOSPHATE 40 MEQ in DEXTROSE 5% IN WATER 500 ML IV SCH ×2 (10:08→15:51)
[2020-06-22] MEDS: BUDESONIDE FORMOTEROL INH SCH ×2 (11:26→20:00)
[2020-06-22 12:21] LABS: ALT/SGPT 17 U/L (<40); AST/SGOT 16 U/L (<32); Albumin 3.7 gm/dL (3.2-5.2); Albumin/Globulin Ratio 1.2 (1.0-2.3); Alkaline Phosphatase 100 U/L (39-117); Bilirubin,Direct < 0.2 mg/dL (<0.3); Bilirubin,Total 0.6 mg/dL (0.1-1.0); Blood Urea Nitrogen 7 mg/dL (8-23); Calcium 9.1 mg/dL (8.6-10.4); Carbon Dioxide 31 mmol/L (22-30); Chloride 97 mmol/L (96-108); Globulin 3.1 gm/dL (2.2-3.7); Glomerular Filtration Rate 98; Glucose 140 mg/dL (70-105); Lactate Dehydrogenase 237 U/L (135-225); Triglycerides 137 mg/dL (<150); Uric Acid 4.7 mg/dL (2.5-8.0)
--- NOTE | 2020-06-22 12:45 | General Surgery Progress Note ---
SUBJECTIVE Subjective Patient information: Note initiated : 06/22/20 at 12:39 pm Service Date, if different from initiated Date: [] Patient: Saundra Cardona 60 y/o F admitted on 06/18/20 for lower abd pain. Chief Complaint: [] Principal diagnosis: postoperative incisional hernia Interval history: patient feels better. She is afebrile. There is a moderate amount of serosanguineous drainage. She has started to have flatus but no bowel movement. Her nasogastric tube was discontinued earlier today and she has tolerated clear liquids without nausea. White blood count 12.9, hemoglobin 14.2, hematocrit 46.5, potassium 3, BUN 7, creatinine 0.6 Constitutional Vitals: Vital Signs Temp Pulse Resp BP Pulse Ox 98.3 F 102 H 20 135/79 94 06/22/20 11:34 06/22/20 11:34 06/22/20 11:34 06/22/20 11:34 06/22/20 11:34 Period Temp Pulse Resp BP Sys/Méndez Pulse Ox Last 24 Hr 97.5 F-98.3 F 86-103 16-20 111-144/68-98 94-98 Intake and Output 06/21/20 06/22/20 06/22/20 21:59 05:59 13:59 Intake Total 1927 444 9819 Output Total 890 1623 300 Balance 360 -1423 877 Weight 228 lb 6.4 oz Intake & Output: Intake & Output 06/21/20 06/22/20 06/22/20 21:59 05:59 13:59 Intake Total 4099 266 3571 Output Total 890 1623 300 Balance 360 -1423 877 Weight 228 lb 6.4 oz Intake: IV 1000 977 Sodium Chloride 0.9% 1,000 ml @ 1000 977 100 mls/hr IV .Q10H [facility] Rx#: [id number] Oral 250 200 200 Output: Gastric Drainage 200 1000 Left Nare NG/OG 200 1000 Drainage 90 73 Left Abdomen 30 8 Medial Abdomen 30 20 Right Abdomen 30 45 Urine Catheter Amount 600 550 300 Other: Meal POPSCICLE Lunch Percent of Meal Consumed 50% Feeding Ability Assist with Tray Set Up Assist with Tray Set Up Urine Appearance Sediment Clear Urine Color Dark Yellow Dark Yellow Uretheral (Leo) Straw Urine Odor Strong Head Head exam: Present atraumatic, normal inspection and normocephalic Eye Pupils: Present normal accommodation and PERRL ENT ENT exam: Present normal exam, normal external ear exam and normal oropharynx Neck Neck exam: Present full ROM; Absent tenderness Respiratory Respiratory exam: Present normal respiratory exam and CTAB; Absent rales, rhonchi and wheezes Cardiovascular Cardiovascular exam: Present normal rate and rhythm, RRR, +S1 and +S2; Absent gallop and JVD GI/Abdominal GI/Abdominal exam: Present normal bowel sounds, soft and firm; Absent rebound Additional comments: hypoactive bowel sounds; moderate incisional tenderness; MARCOS drain with serosanguineous drainage Extremities Exam Extremities exam: Present full ROM, normal inspection and neurovascular intact Additional comments: incision left knee evaluated and is healing nicely Neurological Exam Neurological exam: Present alert, CN II-XII intact, normal gait and oriented X3 Psychiatric Psychiatric exam: Present normal affect and normal mood Skin Skin exam: Present normal color and rash; Absent cyanosis A/P Assessment and plan (1) Incarcerated incisional hernia: Status: Acute (2) Constipation due to opioid therapy: Status: Acute (3) DC (obstructive sleep apnea): Status: Chronic (4) COPD (chronic obstructive pulmonary disease): Status: Chronic Qualifiers: COPD type: unspecified COPD Qualified Code(s): J44.9 - Chronic obstructive pulmonary disease, unspecified Narrative A/P Narrative: discontinue nasogastric tube. clear liquid diet. MiraLAX twice daily. K-Dur 20 mEq twice daily. Increase activity and ambulate Time Spent With Patient Time: Total time spent is greater than 50% in coordination of care (as documented) at patient's floor/unit and/or counseling patient:
[2020-06-22] MEDS: traZODone HCL 50 MG TABLET PO SCH (19:59)
[2020-06-22] MEDS: IMIPRAMINE 25 MG TABLET PO SCH (19:59)
[2020-06-22] MEDS: POLYETHYLENE GLYCOL 3350 17 GM PACKET PO SCH (20:06)
[2020-06-22] MEDS: SIMETHICONE 80 MG TAB.CHEW CHEWED PRN (20:06)
[2020-06-22] MEDS: CARBOXYMETHYLCELLULOSE SODIUM 1 EACH DROPER.GEL OU PRN (20:09)
[2020-06-23] MEDS: METOCLOPRAMIDE 10 MG/2 ML VIAL IV SCH ×4 (00:10→18:12)
[2020-06-23] MEDS: 0.9 % SODIUM CHLORIDE 1,000 ML IV SCH ×2 (04:10→18:59)
[2020-06-23] MEDS: HYDROmorphone 1 MG/ML SYRINGE IV PRN (04:11)
[2020-06-23] MEDS: 0.9 % SODIUM CHLORIDE 10 ML SYRINGE IV SCH ×3 (04:55→20:40)
[2020-06-23 06:35] LABS: Basophils # (Auto) 0.03 K/mcL (0.00-0.20); Basophils % (Auto) 0.3 % (0.0-2.0); Eosinophils # (Auto) 0.48 K/mcL (0.00-0.70); Eosinophils % (Auto) 4.8 % (0.0-7.0); Hematocrit 39.9 % (36.0-48.0); Hemoglobin 12.8 g/dL (12.0-15.0); Lymphocytes # (Auto) 2.21 K/mcL (1.50-4.80); Lymphocytes % (Auto) 22.3 % (15.0-49.0); Mean Cell Volume 91.3 fL (80.0-100.0); Mean Corpuscular HGB Conc 32.1 g/dL (31.0-36.0); Mean Platelet Volume 8.8 fL (7.4-10.4); Monocytes # (Auto) 0.69 K/mcL (0.10-0.90); Neutrophils % (Auto) 65.6 % (38.0-78.0); Platelet Count 231 K/mcL (140-440); RBC 4.37 M/mcL (4.00-5.20); Red Cell Distribution Width 13.5 % (11.5-14.5); WBC 9.9 K/mcL (4.5-11.0)
[2020-06-23 07:19] LABS: ALT/SGPT 17 U/L (<40); AST/SGOT 19 U/L (<32); Albumin 3.3 gm/dL (3.2-5.2); Albumin/Globulin Ratio 1.1 (1.0-2.3); Alkaline Phosphatase 89 U/L (39-117); Bilirubin,Direct < 0.2 mg/dL (<0.3); Bilirubin,Total 0.6 mg/dL (0.1-1.0); Blood Urea Nitrogen 6 mg/dL (8-23); Calcium 8.6 mg/dL (8.6-10.4); Carbon Dioxide 28 mmol/L (22-30); Chloride 102 mmol/L (96-108); Globulin 2.9 gm/dL (2.2-3.7); Glomerular Filtration Rate 79; Glucose 115 mg/dL (70-105); Lactate Dehydrogenase 250 U/L (135-225); Phosphorous 3.6 mg/dL (2.5-4.5); Triglycerides 141 mg/dL (<150); Uric Acid 4.5 mg/dL (2.5-8.0)
[2020-06-23] MEDS: SIMETHICONE 80 MG TAB.CHEW CHEWED PRN ×3 (09:12→22:59)
[2020-06-23] MEDS: DULoxetine 30 MG CAPSULE PO SCH (09:13)
[2020-06-23] MEDS: PRAMIPEXOLE 1 MG TABLET PO SCH ×2 (09:13→20:39)
[2020-06-23] MEDS: BUDESONIDE FORMOTEROL INH SCH ×2 (09:14→20:40)
[2020-06-23] MEDS: POLYETHYLENE GLYCOL 3350 17 GM PACKET PO SCH ×2 (09:14→20:38)
[2020-06-23] MEDS: LITHIUM CARBONATE 300 MG PO SCH ×2 (09:18→20:44)
[2020-06-23] MEDS: LEVOFLOXACIN 750 MG/150 ML BAG IV SCH (09:18)
[2020-06-23] MEDS: busPIRone 15 MG TABLET PO PRN ×3 (09:18→20:39)
[2020-06-23] MEDS: CARBOXYMETHYLCELLULOSE SODIUM 1 EACH DROPER.GEL OU PRN ×2 (09:31→20:40)
[2020-06-23] MEDS: ACETAMINOPHEN 325 MG TABLET PO PRN ×2 (09:31→20:38)
--- NOTE | 2020-06-23 17:18 | General Surgery Progress Note ---
SUBJECTIVE Subjective Patient information: Note initiated : 06/23/20 at 5:18 pm Service Date, if different from initiated Date: [] Patient: Saundra Cardona 60 y/o F admitted on 06/18/20 for lower abd pain. Chief Complaint: [] Principal diagnosis: postoperative incisional hernia Interval history: 60-year-old female admitted on June 29 with complaint of abdominal pain and an enlarging mass of her abdominal wall. She had a palpable mass in her right lower quadrant. CT of the abdomen and pelvis revealed incarcerated hernia, and she underwent incisional hernia repair with bilateral separation of components and underlay mesh graft. She continues to do well. She is passing flatus very small amount of stool. She still has moderate distention. Discussed with her the need to have citrate of magnesia given and i f this is ineffective, she can be discharged home. White blood count 9.9, hip, 12.8, hematocrit 39.9, potassium 3.2, BUN 6, creatinine 0.8 Constitutional Vitals: Vital Signs Temp Pulse Resp BP Pulse Ox 98.4 F 89 16 121/75 94 06/23/20 16:00 06/23/20 16:00 06/23/20 16:00 06/23/20 16:00 06/23/20 16:00 Period Temp Pulse Resp BP Sys/Méndez Pulse Ox Last 24 Hr 97.1 F-98.4 F 68-98 16-18 106-127/65-79 90-98 Intake and Output 06/23/20 06/23/20 06/23/20 05:59 13:59 21:59 Intake Total 1032 590 400 Output Total 607 600 240 Balance 425 -10 160 Weight 228 lb 7 oz Patient Weight 06/24/20 05:59 Weight 228 lb 7 oz Intake & Output: Intake & Output 06/23/20 06/23/20 06/23/20 05:59 13:59 21:59 Intake Total 1032 590 400 Output Total 607 600 240 Balance 425 -10 160 Weight 228 lb 7 oz Intake: IV 632 150 Sodium Chloride 0.9% 1,000 ml @ 632 100 mls/hr IV .Q10H [facility] Rx#: [id number] Oral 400 440 400 Output: Drainage 57 40 Left Abdomen 35 20 Medial Abdomen 12 15 Right Abdomen 10 5 Void Amount 550 600 200 Other: Meal Lunch Percent of Meal Consumed 75% Feeding Ability Independent Urine Appearance Clear Clear Urine Color Dark Yellow Dark Yellow Dark Yellow Head Head exam: Present atraumatic, normal inspection and normocephalic Eye Pupils: Present normal accommodation and PERRL ENT ENT exam: Present normal exam, normal external ear exam and normal oropharynx Neck Neck exam: Present full ROM; Absent tenderness Respiratory Respiratory exam: Present normal respiratory exam and CTAB; Absent rales, rhonchi and wheezes Cardiovascular Cardiovascular exam: Present normal rate and rhythm, RRR, +S1 and +S2; Absent gallop and JVD GI/Abdominal GI/Abdominal exam: Present normal bowel sounds, soft and firm; Absent rebound Additional comments: hypoactive bowel sounds; moderate incisional tenderness; MARCOS drain with serosanguineous drainage Extremities Exam Extremities exam: Present full ROM, normal inspection and neurovascular intact Additional comments: incision left knee evaluated and is healing nicely Neurological Exam Neurological exam: Present alert, CN II-XII intact, normal gait and oriented X3 Psychiatric Psychiatric exam: Present normal affect and normal mood Skin Skin exam: Present normal color and rash; Absent cyanosis A/P Assessment and plan (1) Incarcerated incisional hernia: Status: Acute (2) DC (obstructive sleep apnea): Status: Chronic Narrative A/P Narrative: citrate of magnesia one bottle tonight. Replace potassium. Saline lock IV. Probable discharge home tomorrow Time Spent With Patient Time: Total time spent is greater than 50% in coordination of care (as documented) at patient's floor/unit and/or counseling patient:
[2020-06-23] MEDS: MAGNESIUM CITRATE 300 ML ORAL.SOL PO SCH (18:12)
[2020-06-23] MEDS: IMIPRAMINE 25 MG TABLET PO SCH (20:39)
[2020-06-23] MEDS: traZODone HCL 50 MG TABLET PO SCH (20:39)
[2020-06-24] MEDS: METOCLOPRAMIDE 10 MG/2 ML VIAL IV SCH ×3 (00:10→11:50)
[2020-06-24] MEDS: 0.9 % SODIUM CHLORIDE 10 ML SYRINGE IV SCH (05:50)
[2020-06-24 06:25] LABS: Basophils # (Auto) 0.06 K/mcL (0.00-0.20); Basophils % (Auto) 0.6 % (0.0-2.0); Eosinophils # (Auto) 0.51 K/mcL (0.00-0.70); Eosinophils % (Auto) 5.2 % (0.0-7.0); Hematocrit 42.5 % (36.0-48.0); Hemoglobin 13.5 g/dL (12.0-15.0); Lymphocytes # (Auto) 1.86 K/mcL (1.50-4.80); Lymphocytes % (Auto) 18.9 % (15.0-49.0); Mean Cell Volume 92.6 fL (80.0-100.0); Mean Corpuscular HGB Conc 31.8 g/dL (31.0-36.0); Mean Platelet Volume 8.8 fL (7.4-10.4); Monocytes # (Auto) 0.88 K/mcL (0.10-0.90); Neutrophils % (Auto) 66.3 % (38.0-78.0); Platelet Count 231 K/mcL (140-440); RBC 4.59 M/mcL (4.00-5.20); Red Cell Distribution Width 13.4 % (11.5-14.5); WBC 9.8 K/mcL (4.5-11.0)
[2020-06-24 07:00] LABS: ALT/SGPT 17 U/L (<40); AST/SGOT 18 U/L (<32); Albumin 3.4 gm/dL (3.2-5.2); Albumin/Globulin Ratio 1.1 (1.0-2.3); Alkaline Phosphatase 90 U/L (39-117); Bilirubin,Direct < 0.2 mg/dL (<0.3); Bilirubin,Total 0.5 mg/dL (0.1-1.0); Blood Urea Nitrogen 4 mg/dL (8-23); Carbon Dioxide 27 mmol/L (22-30); Chloride 100 mmol/L (96-108); Glomerular Filtration Rate 98; Glucose 102 mg/dL (70-105); Lactate Dehydrogenase 275 U/L (135-225); Phosphorous 2.5 mg/dL (2.5-4.5); Triglycerides 133 mg/dL (<150); Uric Acid 4.1 mg/dL (2.5-8.0)
[2020-06-24] MEDS ORDERED: LEVOTHYROXINE 100 MCG TABLET PO SCH (07:30)
[2020-06-24] MEDS: BUDESONIDE FORMOTEROL INH SCH (08:00)
[2020-06-24] MEDS ORDERED: POTASSIUM CHLORIDE 20 MEQ TABLET PO SCH (08:00)
[2020-06-24] MEDS: PRAMIPEXOLE 1 MG TABLET PO SCH (08:35)
[2020-06-24] MEDS: LEVOFLOXACIN 750 MG/150 ML BAG IV SCH (08:36)
[2020-06-24] MEDS: DULoxetine 30 MG CAPSULE PO SCH (08:36)
[2020-06-24] MEDS: LITHIUM CARBONATE 300 MG PO SCH (08:36)
[2020-06-24] MEDS: POLYETHYLENE GLYCOL 3350 17 GM PACKET PO SCH (08:36)
[2020-06-24] MEDS: busPIRone 15 MG TABLET PO PRN (08:45)
[2020-06-24] MEDS: MAGNESIUM CITRATE 300 ML ORAL.SOL PO SCH (09:55)
--- NOTE | 2020-06-24 13:16 | Discharge Summary ---
Discharge Provider Provider Patient information: Note initiated : 06/24/20 at 1:11 pm Service Date, if different from initiated Date: [] Patient: Saundra Cardona 60 y/o F admitted on 06/18/20 for lower abd pain. Chief Complaint: [] Date of admission: 06/18/20 02:00 Discharge date: 06/24/20 Primary care physician: Amanda Chavez Admitting clinician: Deepika Avila Attending physician on admission: Deepika Avila Consults: 06/18/20 00:38 Consult to Physician [CONS] Routine Comment: Consulting Provider: Deepika Avila Reason For Exam: Physician to Consult Attending physician on discharge: Deepika Avila Discharging clinician: Deepika Avila COURSE Hospital Course Hospital course: 60-year-old female who is status post incisional hernia repair with bilateral separation of components and subfascial mesh graft placement. Patient is doing well and has no complaints. She still has moderate serosanguin eous drainage and all of her drains. She is afebrile. White blood count was normal. She's having regular bowel movements. Patient is stable for discharge home. Discharge diagnosis: incarcerated incisional hernia Secondary discharge diagnosis: chronic obstructive lung disease. Chronic obstructive sleep apnea. Anxiety disorder Reason for admission: postoperative incisional hernia repair Procedures: incisional hernia repair with bilateral separation of components and subfascial mesh graft placement Pertinent studies/significant findings: CT of abdomen and pelvis with contrast Complications: none Time Spent with Patient Time attestation: Total time spent providing and/or coordinating discharge services: Physical Examination Vital Signs Vital signs: Temp Pulse Resp BP Pulse Ox 98.9 F 98 H 16 108/67 94 06/24/20 11:23 06/24/20 11:23 06/24/20 11:23 06/24/20 11:23 06/24/20 11:23 General physical appearance General physical exam: well developed, well nourished, moderate distress, moderate pain and obese Eyes Eye exam: PERRL and normal ocular movement ENT ENT exam: no hearing loss and no congestion; negative decreased hearing Head Head exam IM: Present atraumatic, normal inspection and normocephalic Neck Neck exam: no masses, no bruits, trachea midline, no lymphadenopathy and no venous distension Cardiovascular Cardiovascular exam IM: Present normal rate and rhythm, RRR, +S1 and +S2; Absent JVD and systolic murmur Respiratory Respiratory exam: normal expansion, normal respiratory effort, clear to percussion and clear to auscultation Integumentary Integumentary: Present no rash, no growths and no abnormal pigmentation Neurologic Neurologic: Present normal coordination and normal sensation Musculoskeletal Musculoskeletal: Present normal gait, normal posture and other Psychiatric Psychiatric: Present oriented to time, oriented to person, oriented to place, speech is normal and memory intact Discharge Plan Patient/Caregiver Discharge Instructions Activity: increase activity as tolerated Diet: Regular Diet Instructions: Open Herniorrhaphy (DC), Exploratory Laparotomy (DC) Prescriptions: New oxycodone-acetaminophen [Endocet] 10-325 mg Tablet 1 tab PO Q4H PRN (Reason: Pain) Qty: 60 RF: 0 Continued levothyroxine 200 mcg capsule 200 mcg PO QDAY RF: 0 imipramine HCl 10 mg tablet 50 mg PO ONCE RF: 0 furosemide 20 mg tablet 20 mg PO QAM RF: 0 bisoprolol fumarate 5 MG tablet 5 mg PO DAILY RF: 0 pantoprazole 40 MG tablet 40 mg PO BID RF: 0 albuterol sulfate 6.7 GM HFA aerosol inhaler 2 puff IH Q4HP PRN (Reason: Shortness Of Breath) RF: 0 rosuvastatin 40 MG tablet 40 mg PO HS RF: 0 duloxetine 60 mg Capsule,Delayed Release(Dr/Ec) 60 mg PO QDAY RF: 0 [place] Carbonate 300 mg/day PO QAM RF: 0 [place] Carbonate 600 mg PO HS RF: 0 simethicone 80 mg tablet 160 mg PO QIDP PRN (Reason: Abdominal Distention) RF: 0 buspirone 7.5 mg tablet 15 mg PO TIDP PRN (Reason: Anxiety) RF: 0 trazodone 50 mg tablet 150 mg PO HS RF: 0 pramipexole 1 mg Tablet 1 mg PO BID RF: 0 clobetasol 0.05 % Cream 1 applic TOPICAL BIDP PRN (Reason: Skin Irritation) RF: 0 ferrous sulfate 325 mg (65 mg iron) Tablet 325 mg PO QDAY RF: 0 fluticasone propionate 50 mcg/actuation [place],Suspension 1 spray INTRANASAL BIDP PRN (Reason: Congestion) RF: 0 budesonide-formoterol [Symbicort] 80-4.5 mcg/actuation Hfa Aerosol Inhaler 1 puff INHALATION BID RF: 0 albuterol sulfate 0.63 mg/3 mL Solution For Nebulization 0.63 mg INHALATION Q6HP PRN (Reason: Shortness Of Breath) RF: 0 estradiol 0.05 mg/24 hr Patch Weekly 1 patch TRANSDERMAL ONCE RF: 0 thiamine HCl (vitamin B1) [Vitamin B-1] 100 mg Tablet 100 mg PO DAILY RF: 0 dicyclomine 20 mg Tablet 20 mg PO BID RF: 0 docusate sodium 100 mg Capsule 100 mg PO DAILY RF: 0 epinephrine 0.3 mg/0.3 mL Auto-Injector 0.3 mg IM PRN PRN (Reason: Allergic Symptoms) RF: 0 etodolac 500 mg Tablet 500 mg PO BID RF: 0 sodium fluoride-pot nitrate 1.1-5 % Paste 1 applic dental DAILY RF: 0 carboxymethylcellulose sodium Drops 1 drp OPHTHALMIC (EYE) QIDP PRN (Reason: Dry Eyes) RF: 0 cholecalciferol (vitamin D3) [Vitamin D3] 125 mcg (5,000 unit) Tablet 125 mcg PO DAILY RF: 0 Probiotic 1 cap PO DAILY RF: 0 cyclobenzaprine 10 MG tablet 10 mg PO BIDP PRN (Reason: Muscle Spasm) RF: 0 Discontinued Eliquis 5 mg Tablet 5 mg PO BID RF: 0 Follow Up Plan Follow up with: Amanda Chavez MD [Primary Care Provider] - Deepika Avila MD [Physician] - 07/04/20 9:45 am Patient Disposition: Home, Self-Care Plan of Treatment: hold ELIQUIS x 3 more days then restart at regular dose Prognosis: Good Rehab Potential: Good I certify that the patient requires SNF services: Yes Overall status at discharge: patient is progressing back to baseline Discharge Orders: Discharge Order (Routine); Ordered 06/24/20 Ordered By: Deepika Avila Pending Pending Pending: Resuscitation Status Do Not Resuscitate Diet Regular Diet Start Sat Jun 24 953 Acetaminophen (Tylenol) 650 mg PO Q4HP PRN; Protocol PRN Reason: Per Pain Protocol Last Admin: 06/23/20 20:38 Dose: 650 mg Documented by: Admin: 06/23/20 09:31 Dose: 650 mg Documented by: REMEDIOSOURELAINE Artificial Tears (Refresh Celluvisc) 1 each OU QIDP PRN PRN Reason: Dry Eyes Last Admin: 06/23/20 20:40 Dose: 1 each Documented by: Admin: 06/23/20 09:31 Dose: 1 each Documented by: Admin: 06/22/20 20:09 Dose: 1 each Documented by: YAJAIRA Buspirone HCl (Buspar) 15 mg PO TIDP PRN PRN Reason: Anxiety Last Admin: 06/24/20 08:45 Dose: 15 mg Documented by: Admin: 06/23/20 20:39 Dose: 15 mg Documented by: Admin: 06/23/20 13:58 Dose: 15 mg Documented by: Admin: 06/23/20 09:18 Dose: 15 mg Documented by: Admin: 06/22/20 20:06 Dose: 15 mg Documented by: Admin: 06/22/20 08:26 Dose: 15 mg Documented by: Admin: 06/21/20 20:41 Dose: 15 mg Documented by: Admin: 06/21/20 10:33 Dose: 15 mg Documented by: Admin: 06/20/20 17:48 Dose: 15 mg Documented by: Admin: 06/20/20 09:27 Dose: 15 mg Documented by: Admin: 06/19/20 22:18 Dose: 15 mg Documented by: MAGGIE Duloxetine HCl (Cymbalta) 60 mg PO DAILY [facility] Last Admin: 06/24/20 08:36 Dose: 60 mg Documented by: Admin: 06/23/20 09:13 Dose: 60 mg Documented by: Admin: 06/22/20 08:26 Dose: 60 mg Documented by: Admin: 06/21/20 10:33 Dose: 60 mg Documented by: Admin: 06/20/20 09:21 Dose: 60 mg Documented by: ALIZE Hydromorphone HCl (Dilaudid) 1 mg IV Q2HP PRN; Protocol PRN Reason: Per Pain Protocol Last Admin: 06/23/20 04:11 Dose: 1 mg Documented by: Admin: 06/22/20 20:48 Dose: 1 mg Documented by: Admin: 06/22/20 13:17 Dose: 1 mg Documented by: Admin: 06/22/20 01:28 Dose: 1 mg Documented by: Admin: 06/21/20 15:52 Dose: 1 mg Documented by: Admin: 06/21/20 10:41 Dose: 1 mg Documented by: Admin: 06/21/20 04:16 Dose: 1 mg Documented by: Admin: 06/20/20 22:20 Dose: 1 mg Documented by: Admin: 06/20/20 13:09 Dose: 1 mg Documented by: Admin: 06/20/20 08:57 Dose: 1 mg Documented by: Admin: 06/20/20 03:28 Dose: 1 mg Documented by: Admin: 06/19/20 22:18 Dose: 1 mg Documented by: MAGGIE Levofloxacin (Levaquin) 750 mg in 150 mls @ 100 mls/hr IV DAILY [facility]; Protocol Last Admin: 06/24/20 08:36 Dose: 150 mls/hr Documented by: Infusion: 06/23/20 10:18 Dose: 0 mls/hr Documented by: Admin: 06/23/20 09:18 Dose: 150 mls/hr Documented by: Infusion: 06/22/20 09:56 Dose: 0 mls/hr Documented by: Admin: 06/22/20 08:26 Dose: 100 mls/hr Documented by: Infusion: 06/21/20 12:03 Dose: 100 mls/hr Documented by: Admin: 06/21/20 10:33 Dose: 100 mls/hr Documented by: Infusion: 06/20/20 10:30 Dose: 0 mls/hr Documented by: Admin: 06/20/20 09:00 Dose: 100 mls/hr Documented by: ALIZE Imipramine HCl (Tofranil) 50 mg PO HS [facility] Last Admin: 06/23/20 20:39 Dose: 50 mg Documented by: Admin: 06/22/20 19:59 Dose: 50 mg Documented by: Admin: 06/21/20 20:40 Dose: 50 mg Documented by: Admin: 06/20/20 21:29 Dose: 50 mg Documented by: Admin: 06/19/20 20:26 Dose: 50 mg Documented by: MAGGIE Levothyroxine Sodium (Synthroid) 200 mcg PO QAMAC [facility] Last Admin: 06/24/20 08:35 Dose: 200 mcg Documented by: TAWNY Magnesium Citrate (Citroma) 300 ml PO DAILY [facility] Admin: 06/24/20 09:55 Dose: Not Given Documented by: Admin: 06/23/20 18:12 Dose: 300 ml Documented by: VASQUEZ Metoclopramide HCl (Reglan) 10 mg IV Q6 [facility] Admin: 06/24/20 11:50 Dose: 10 mg Documented by: Admin: 06/24/20 05:50 Dose: 10 mg Documented by: Admin: 06/24/20 00:10 Dose: 10 mg Documented by: Admin: 06/23/20 18:12 Dose: 10 mg Documented by: Admin: 06/23/20 12:02 Dose: 10 mg Documented by: Admin: 06/23/20 05:53 Dose: 10 mg Documented by: Admin: 06/23/20 00:10 Dose: 10 mg Documented by: Admin: 06/22/20 17:39 Dose: 10 mg Documented by: Admin: 06/22/20 12:07 Dose: 10 mg Documented by: Admin: 06/22/20 05:52 Dose: 10 mg Documented by: Admin: 06/22/20 00:38 Dose: 10 mg Documented by: Admin: 06/21/20 17:54 Dose: 10 mg Documented by: Admin: 06/21/20 12:56 Dose: 10 mg Documented by: Admin: 06/21/20 07:26 Dose: 10 mg Documented by: Admin: 06/20/20 23:55 Dose: 10 mg Documented by: Admin: 06/20/20 17:42 Dose: 10 mg Documented by: Admin: 06/20/20 12:16 Dose: 10 mg Documented by: Admin: 06/20/20 06:07 Dose: 10 mg Documented by: Admin: 06/20/20 00:48 Dose: 10 mg Documented by: Admin: 06/19/20 20:26 Dose: 10 mg Documented by: MAGGIE [place] Carbonate Er (Lithobid) 300 Mg Tablet 1 dose PO DAILY [facility] Admin: 06/24/20 08:36 Dose: 1 dose Documented by: Admin: 06/23/20 09:18 Dose: 1 dose Documented by: Admin: 06/22/20 08:27 Dose: 1 dose Documented by: Admin: 06/21/20 10:34 Dose: 1 dose Documented by: Admin: 06/20/20 09:22 Dose: 1 dose Documented by: ALIZE Budesonide- Formoterol [ Symbicort] 80-4.5 Mcg/Actuation Inhaler 1 dose INH BID [facility] Admin: 06/24/20 08:00 Dose: Not Given Documented by: Admin: 06/23/20 20:40 Dose: Not Given Documented by: Admin: 06/23/20 09:14 Dose: Not Given Documented by: Admin: 06/22/20 20:00 Dose: Not Given Documented by: Admin: 06/22/20 11:26 Dose: Not Given Documented by: Admin: 06/21/20 20:49 Dose: Not Given Documented by: Admin: 06/21/20 10:34 Dose: Not Given Documented by: Admin: 06/20/20 21:32 Dose: Not Given Documented by: Admin: 06/20/20 08:35 Dose: Not Given Documented by: Admin: 06/19/20 20:27 Dose: Not Given Documented by: MAGGIE Polyethylene Glycol (Miralax) 17 gm PO BID [facility] Admin: 06/24/20 08:36 Dose: 17 gm Documented by: Admin: 06/23/20 20:38 Dose: 17 gm Documented by: Admin: 06/23/20 09:14 Dose: 17 gm Documented by: Admin: 06/22/20 20:06 Dose: 17 gm Documented by: YAJAIRA Potassium Chloride (Kdur) 40 meq PO BIDCC [facility] Admin: 06/24/20 08:36 Dose: 40 meq Documented by: TAWNY Pramipexole Dihydrochloride (Mirapex) 1 mg PO BID [facility] Admin: 06/24/20 08:35 Dose: 1 mg Documented by: Admin: 06/23/20 20:39 Dose: 1 mg Documented by: Admin: 06/23/20 09:13 Dose: 1 mg Documented by: Admin: 06/22/20 20:00 Dose: 1 mg Documented by: Admin: 06/22/20 08:26 Dose: 1 mg Documented by: Admin: 06/21/20 20:41 Dose: 1 mg Documented by: Admin: 06/21/20 10:33 Dose: 1 mg Documented by: Admin: 06/20/20 21:30 Dose: 1 mg Documented by: Admin: 06/20/20 09:21 Dose: 1 mg Documented by: Admin: 06/19/20 22:17 Dose: 1 mg Documented by: MAGGIE Simethicone (Mylicon) 160 mg CHEWED Q4HP PRN PRN Reason: gas pains Last Admin: 06/23/20 22:59 Dose: 160 mg Documented by: Admin: 06/23/20 12:24 Dose: 160 mg Documented by: Admin: 06/23/20 09:12 Dose: 160 mg Documented by: Admin: 06/22/20 20:06 Dose: 160 mg Documented by: Admin: 06/21/20 19:25 Dose: 160 mg Documented by: Admin: 06/21/20 12:59 Dose: 160 mg Documented by: ALIZE Sodium Chloride (Saline Flush) 10 ml IV Q8 [facility] Admin: 06/24/20 05:50 Dose: 10 ml Documented by: Admin: 06/23/20 20:40 Dose: 10 ml Documented by: Admin: 06/23/20 13:59 Dose: Not Given Documented by: Admin: 06/23/20 04:55 Dose: Not Given Documented by: Admin: 06/22/20 20:01 Dose: 10 ml Documented by: Admin: 06/22/20 15:47 Dose: Not Given Documented by: Admin: 06/22/20 05:54 Dose: Not Given Documented by: Admin: 06/21/20 20:49 Dose: Not Given Documented by: Admin: 06/21/20 13:02 Dose: Not Given Documented by: Admin: 06/21/20 07:27 Dose: Not Given Documented by: Admin: 06/20/20 22:22 Dose: 10 ml Documented by: Admin: 06/20/20 14:00 Dose: 10 ml Documented by: Admin: 06/20/20 06:07 Dose: 10 ml Documented by: Admin: 06/19/20 20:27 Dose: 10 ml Documented by: MAGGIE Trazodone HCl (Desyrel) 150 mg PO HS [facility] Last Admin: 06/23/20 20:39 Dose: 150 mg Documented by: Admin: 06/22/20 19:59 Dose: 150 mg Documented by: Admin: 06/21/20 20:40 Dose: 150 mg Documented by: Admin: 06/20/20 21:30 Dose: 150 mg Documented by: Admin: 06/19/20 20:27 Dose: 150 mg Documented by: MAGGIE Shift Summary 06/24/20 03:56 Shift Summary by Raine Sofia Pt A&Ox4 and able to make needs known. Has hx of anxiety/depression, is anxious at times but does well with therapeutic communication and reinforcement. tolerating clear liquid diet well and anxious to upgrade diet. up with 1 assist, FWW, GB. pt using bedside commode due to frequent and urgent loose stools this shift. Pt with pull ups on at this time per her request due to some incontinence from urgent stools. voiding well. abdominal binder in place. midline incision with nory and small amount of serousanguinous drainage. 3 MARCOS drains to the lower abdomen with small amount of sang. drainage. 20 g IV to the left upper arm- tagaderm changed this shift. CPAP at HS. pt ambulated [address] yesterday- had some gas discomfort, given simethicone PRN. Given Acetaminophen x1 with good effect. Given Buspirone at HS per pt request with good effect. Pt received mag yesterday- please check AM labs. will update at bedside. Initialized on 06/24/20 03:56 - END OF NOTE
[2020-06-24] MEDS ORDERED: LITHIUM CARBONATE 300 MG PO SCH (21:00)
--- NOTE | 2020-07-04 15:27 | Operative Note ---
DATE OF OPERATION: 06/19/2020 PREOPERATIVE DIAGNOSES: Recurrent incisional hernia with incarcerated colon. POSTOPERATIVE DIAGNOSES: Recurrent incisional hernia with incarcerated colon. PROCEDURE: Laparotomy with explantation of mesh graft, bilateral separation of components, peritoneal adhesiolysis, mesh graft repair of incisional recurrent hernia. SURGEON: Deepika Avila M.D. FINDINGS: Recurrent incisional hernia with separation of onlay mesh graft, extensive intraabdominal adhesions, tight incarceration of colon in hernia defect. DESCRIPTION OF PROCEDURE: Under general anesthesia, the patient's abdomen was prepped and draped in a sterile field. Timeout procedure was carried out as per protocol. The old midline incision was excised. Incision extended into the subcutaneous tissue where an onlay mesh graft was encountered. Using sharp dissection, this was and removed without difficulty. The hernia sac was dissected and the fascia was extended to allow the colon to be pushed safely back into the peritoneal cavity. The incision was then explored, and there were multiple defects, so it was incised completely throughout its length. The fascia was very attenuated, so the fascia was from the underlying adhesions. Extensive adhesiolysis had to be done in order to get enough space to place the mesh graft. The dissection was carried out about 15 cm laterally on each side and about 10 cm above and below the incision. Once this was done, a separation of components was carried out. The subcutaneous fat was from the anterior fascia over to the junction between the rectus muscle and the obliques. The oblique anterior fascia was incised, extending from lower rib margin down to the iliac crest bilaterally. This allowed the residual fascia to be pulled to the midline. Irrigation was carried out. A 15 x 22 oval skirted mesh graft was placed and was sutured circumferentially using interrupted 0 Prolene. The Securestrap tacking apparatus was then used to tack the skirted portion of the graft to the undersurface of the rectus fascia. A 10 Alexandre drain was placed over the graft, and the fascia was then closed using interrupted #1 Prolene throughout its length. Copious irrigation was carried out in the subcutaneous tissue and two 10 Alexandre drains were placed in the subcutaneous plane and brought out through separate incisions. The superficial fascia was then closed with 2-0 Monocryl in two layers using a running locking pattern. The incision was closed with nory. The drains were secured with 2-0 nylon. Patient tolerated the procedure well. Tegaderm dressings were placed. Patient was awakened from anesthesia uneventfully, transferred to a bed, and taken to the postanesthetic care unit in stable, satisfactory condition. LCS:margy Job ID: [id number] Doc ID: [id number] Deepika Avila M.D.
== END 2020-06-24 14:50 | disposition home or self-care (01) | DRG 354 ==
LOC: ED 21:17 → MEDSUR 06-18 02:00
PROVIDERS: ADMIT Family Medicine Adult Medicine; ATTEND Family Medicine Adult Medicine

== ENCOUNTER 2020-07-06 08:45 | Inpatient (IN) ==
--- NOTE | 2020-07-06 09:45 | XRay Report ---
CLINICAL INFORMATION: sob COMPARISON: 06/18/2020 FINDINGS: The heart is mildly enlarged but unchanged. Mediastinum and pulmonary vasculature are unremarkable. Moderate patchy edema or infiltrate has developed throughout the periphery of both lungs. No effusion. IMPRESSION: Moderate patchy airspace disease developing in the periphery of both lungs. Consider aspiration or infection. ARDS less likely Interpreted and Authenticated by: Spencer Taylor 07/06/20
[2020-07-06] MEDS ORDERED: AZITHROMYCIN 500 MG in DEXTROSE 5% IN WATER 250 ML IV ONE (09:54)
[2020-07-06] MEDS ORDERED: DEXAMETHASONE 10 MG/ML VIAL IV ONE (09:58)
[2020-07-06] MEDS ORDERED: HYDROXYCHLOROQUINE 200 MG TABLET PO ONE (09:58)
--- NOTE | 2020-07-06 09:58 | Emergency Department Note ---
SOB HPI General Chief Complaint: Shortness of Breath/Dyspnea Stated Complaint: SOB Time Seen by Provider: 07/06/20 09:20 Source: patient, EMS and RN notes reviewed Mode of arrival: EMS Limitations: no limitations History of Present Illness HPI Narrative: Narrative: This patient has had cough shortness of breath and slight hemoptysis today. This patient is very high risk with morbid obesity COPD. Does not complain much of diarrhea nausea or headache. MD Complaint: shortness of breath and cough Onset (ago): day(s) Severity: moderate Consistency/Duration: constant Improves with: nothing Worsens with: nothing Known history of: COPD Associated symptoms: Reports denies other symptoms Related Data Home Medications Medication Instructions Recorded Confirmed [place] Carbonate 300 mg/day PO QAM 10/06/18 07/04/20 [place] Carbon[place] 600 mg PO HS 10/06/18 07/04/20 albuterol sulfate 2 puff IH Q4HP PRN 10/06/18 07/04/20 bisoprolol fumarate 5 mg PO DAILY 10/06/18 07/04/20 duloxetine 60 mg PO QDAY 10/06/18 07/04/20 pantoprazole 40 mg PO BID 10/06/18 07/04/20 rosuvastatin 40 mg PO HS 10/06/18 07/04/20 levothyroxine 200 mcg capsule 200 mcg PO QDAY 10/19/18 07/04/20 imipramine HCl 10 mg tablet 50 mg PO ONCE tab 02/22/19 07/04/20 simethicone 80 mg tablet 160 mg PO QIDP PRN 02/22/19 07/04/20 buspirone 7.5 mg tablet 15 mg PO TIDP PRN tab 11/10/19 07/04/20 furosemide 20 mg tablet 20 mg PO QAM 11/10/19 07/04/20 budesonide-formoterol [Symbicort] 1 puff INHALATION BID 01/08/20 07/04/20 clobetasol 1 applic TOPICAL BIDP PRN 01/08/20 07/04/20 ferrous sulfate 325 mg PO QDAY 01/08/20 07/04/20 fluticasone propionate 1 spray INTRANASAL BIDP PRN 01/08/20 07/04/20 pramipexole 1 mg PO BID 01/08/20 07/04/20 trazodone 150 mg PO HS 01/08/20 07/04/20 Probiotic 1 cap PO DAILY 06/18/20 07/04/20 cholecalciferol (vitamin D3) 125 mcg PO DAILY 06/18/20 07/04/20 [Vitamin D3] cyclobenzaprine 10 mg PO BIDP PRN 06/18/20 07/04/20 dicyclomine 20 mg PO BID 06/18/20 07/04/20 docusate sodium 100 mg PO DAILY 06/18/20 07/04/20 epinephrine 0.3 mg IM PRN PRN 06/18/20 07/04/20 estradiol 1 patch TRANSDERMAL ONCE 06/18/20 07/04/20 etodolac 500 mg PO BID 06/18/20 07/04/20 sodium fluoride-pot nitrate 1 applic DENTAL DAILY 06/18/20 07/04/20 thiamine HCl (vitamin B1) [Vitamin 100 mg PO DAILY 06/18/20 07/04/20 B-1] apixaban [Eliquis] 5 mg PO BID 07/06/20 07/06/20 potassium chloride [Klor-Con M10] 10 meq PO DAILY 07/06/20 07/06/20 Previous Rx's Medication Instructions Recorded oxycodone-acetaminophen [Endocet] 1 tab PO Q4H PRN #60 tab 06/24/20 cefuroxime axetil 500 mg tablet 500 mg PO BID #30 tab 07/04/20 Allergies Allergy/AdvReac Type Severity Reaction Status Date / Time fexofenadine [From KAREL] Allergy Intermediate RASH Verified 07/06/20 08:45 rofecoxib [From VIOXX] Allergy Intermediate RASH Verified 07/06/20 08:45 NARCOTICS AdvReac Mild HALLUCINATE Uncoded 07/04/20 09:49 Review of Systems ROS ROS Narrative: Narrative: All systems ED: reviewed and negative except as stated. [facility] Narrative Patient History Narrative: Narrative: Medical/Surgical/Family History All Active Problems (Updated 07/06/20 @ 13:06 by Derick Lala MD) Pneumonia due to 2019 novel coronavirus (Acute) Postoperative abdominal pain (Acute) Morbid obesity (Acute) Seroma after procedure (Acute) Abdominal pain, acute, left lower quadrant (Acute) Change of dressing (Acute) Blurred vision, bilateral (Acute) Abdominal pain (Acute) Leg pain, right (Acute) Constipation due to opioid therapy (Acute) Epistaxis (Acute) Anxiety (Acute) Pruritus (Acute) Lumbar back pain (Acute) Device in situ (Acute) Numbness of left hand (Acute) Left arm pain (Acute) RLS (restless legs syndrome) (Chronic) Tenosynovitis, de Quervain (Acute) DC on CPAP (Chronic) DC (obstructive sleep apnea) (Chronic) COPD (chronic obstructive pulmonary disease) (Chronic) Allergic reaction to insect bite (Acute) Cracked skin on feet (Acute) S/P TKR (total knee replacement) (Chronic) Lumbago (Acute) Dizziness (Acute) Shortness of breath (Acute) Hyperventilation (Acute) Anemia (Acute) Muscle pain (Acute) Hemoptysis (Acute) COPD exacerbation (Acute) Hemoptysis (Acute) Medical History (Updated 07/06/20 @ 13:06 by Derick Lala MD) Anxiety (Chronic) Arthritis (Chronic) Asthma (Chronic) Costalchondritis (Inactive) Depression (Chronic) GERD (gastroesophageal reflux disease) (Chronic) Hernia (Chronic) High cholesterol (Chronic) Hypertension (Chronic) Incarcerated hernia (Inactive) Incarcerated incisional hernia (Inactive) Lumbago (Acute) Morbid obesity (Acute) Orthostatic hypotension (Inactive) DC (obstructive sleep apnea) (Chronic) DC (obstructive sleep apnea) (Chronic) DC on CPAP (Chronic) Thyroid disease (Chronic) UTI (urinary tract infection) (Resolved) Surgical History Cholecystectomy planned (Chronic) H/O: hysterectomy (Chronic) History of appendectomy (Chronic) History of laparotomy (Acute) 06/19/2020-LAPAROTOMY WITH EXPLANTATION OF MESH GRAFT BILATERAL SEPARATION OF COMPONENTS PERITONEAL ADHESIOLYSIS MESH GRAFT REPAIR OF INCISIONAL HERNIA,RECURRENT S/P hernia surgery (Chronic) S/P left knee surgery (Chronic) S/P right knee surgery (Chronic) S/P TKR (total knee replacement) (Chronic) Family History Father , renal failure No problems noted. Brother No problems noted. Brother 3-vessel coronary artery disease Sister Cervical cancer Social History Smoking Status: Former smoker Alcohol Intake Frequency: a few times a month Substance Use: does not use Exam Narrative Narrative: Narrative: General Limitations: no limitations Head Head: Present atraumatic, normocephalic and normal inspection Eye Eye: Present normal appearance and EOMI; Absent scleral icterus and conjunctival injection ENT ENT: Present normal exam, normal oropharynx and mucous membranes moist Neck Neck: Present normal inspection and full ROM Chest Chest: Present normal inspection and symmetric chest wall rise Respiratory Respiratory: Present rales/crackles; Absent respiratory distress, wheezes and stridor Cardiovascular Cardiovascular: Present regular rate, normal rhythm and normal heart sounds Adbominal Abdominal: Present soft; Absent distention and tenderness Extremities Extremities: Present normal inspection and full ROM; Absent pedal edema and pretibial edema Neurological Neurological: Present alert Psychiatric Psychiatric: Present normal affect Skin Skin: Present warm (WNL) and dry; Absent diaphoresis Course Vital Signs Vital signs: Vital Signs Temperature 99.1 F H 07/06/20 08:45 Pulse Rate 77 07/06/20 08:45 Respiratory Rate 26 H 07/06/20 08:45 Blood Pressure 110/65 07/06/20 08:45 Pulse Oximetry (%) 98 07/06/20 08:45 Temperature 99.1 F H 07/06/20 08:45 Pulse Rate 73 07/06/20 12:56 Respiratory Rate 36 H 07/06/20 12:56 Blood Pressure 115/62 07/06/20 12:56 Pulse Oximetry (%) 92 07/06/20 12:56 [facility] MDM Narrative Medical decision making narrative: Narrative: This patient's O2 saturation is a low 90s at rest on room air but she dips into the 80s with any sort of activity. She will be admitted to the hospital by the hospitalist service. I did give her to hydroxychloroquine and Zithromax. Lab Data Lab results reviewed: Yes I reviewed the patient's lab results. Lab results narrative: Lab work was not too remarkable though D-dimer was a bit elevated 2.2. Result diagrams: 07/06/20 09:11 07/06/20 09:11 Labs: Lab Results 07/06/20 07/06/20 07/06/20 Range/Units 09:11 09:11 09:11 WBC 5.3 (4.5-11.0) K/mcL RBC 3.62 L (4.00-5.20) M/mcL Hgb 10.6 L (12.0-15.0) g/dL Hct 32.9 L (36.0-48.0) % MCV 90.9 (80.0-100.0) fL MCH 29.3 (26.0-34.0) pg MCHC 32.2 (31.0-36.0) g/dL RDW 14.3 (11.5-14.5) % Plt Count 236 (140-440) K/mcL MPV 8.9 (7.4-10.4) fL Seg Neutrophils % 74 (38-78) % Band Neutrophils % 3 (0-10) % Lymphocytes % 17 (15-49) % Monocytes % (Manual) 4 (1-12) % Metamyelocytes % 1 % Reactive Lymphocytes 1 (0-2) % Platelet Estimate Normal (Normal) RBC Morphology Normal (Normal) D-Dimer (0.27-0.50) ug/mL Sodium 137 (133-145) mmol/L Potassium 3.1 L (3.3-5.1) mmol/L Chloride 98 (96-108) mmol/L Carbon Dioxide 24 (22-30) mmol/L Anion Gap 15.0 (8.0-16.0) BUN 7 L (8-23) mg/dL Creatinine 0.7 (0.6-1.1) mg/dL GFR Calculation 93 Glucose 100 (70-105) mg/dL Calcium 8.5 L (8.6-10.4) mg/dL Ferritin (30.0-400.0) ng/mL Total Bilirubin 0.4 (0.1-1.0) mg/dL AST 36 H (<32) U/L ALT 16 (<40) U/L Alkaline Phosphatase 86 (39-117) U/L Troponin T (<0.03) ng/mL NT-Pro-B Natriuret Pep 424.6 H (<125.0) pg/mL Total Protein 6.4 (5.9-8.4) gm/dL Albumin 3.3 (3.2-5.2) gm/dL Globulin 3.1 (2.2-3.7) gm/dL Albumin/Globulin Ratio 1.1 (1.0-2.3) 07/06/20 07/06/20 07/06/20 Range/Units 09:11 09:11 09:11 WBC (4.5-11.0) K/mcL RBC (4.00-5.20) M/mcL Hgb (12.0-15.0) g/dL Hct (36.0-48.0) % MCV (80.0-100.0) fL MCH (26.0-34.0) pg MCHC (31.0-36.0) g/dL RDW (11.5-14.5) % Plt Count (140-440) K/mcL MPV (7.4-10.4) fL Seg Neutrophils % (38-78) % Band Neutrophils % (0-10) % Lymphocytes % (15-49) % Monocytes % (Manual) (1-12) % Metamyelocytes % % Reactive Lymphocytes (0-2) % Platelet Estimate (Normal) RBC Morphology (Normal) D-Dimer 2.29 H (0.27-0.50) ug/mL Sodium (133-145) mmol/L Potassium (3.3-5.1) mmol/L Chloride (96-108) mmol/L Carbon Dioxide (22-30) mmol/L Anion Gap (8.0-16.0) BUN (8-23) mg/dL Creatinine (0.6-1.1) mg/dL GFR Calculation Glucose (70-105) mg/dL Calcium (8.6-10.4) mg/dL Ferritin 321.6 (30.0-400.0) ng/mL Total Bilirubin (0.1-1.0) mg/dL AST (<32) U/L ALT (<40) U/L Alkaline Phosphatase (39-117) U/L Troponin T < 0.01 (<0.03) ng/mL NT-Pro-B Natriuret Pep (<125.0) pg/mL Total Protein (5.9-8.4) gm/dL Albumin (3.2-5.2) gm/dL Globulin (2.2-3.7) gm/dL Albumin/Globulin Ratio (1.0-2.3) Radiology Data Radiology results reviewed: Yes I reviewed the patient's radiology results. 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: No Clinical Impression: Pneumonia due to 2019 novel coronavirus Patient Disposition: Xfer As Inpt ([facility]) Follow up with: Amanda Chavez MD [Primary Care Provider] - Prescriptions: No Action cefuroxime axetil 500 mg tablet 500 mg PO BID Qty: 30 RF: 0 levothyroxine 200 mcg capsule 200 mcg PO QDAY RF: 0 imipramine HCl 10 mg tablet 50 mg PO ONCE RF: 0 furosemide 20 mg tablet 20 mg PO QAM RF: 0 bisoprolol fumarate 5 MG tablet 10 mg PO DAILY RF: 0 pantoprazole 40 MG tablet 40 mg PO BID RF: 0 albuterol sulfate 6.7 GM HFA aerosol inhaler 2 puff IH Q4HP PRN (Reason: Shortness Of Breath) RF: 0 rosuvastatin 40 MG tablet 40 mg PO HS RF: 0 duloxetine 60 mg Capsule,Delayed Release(Dr/Ec) 60 mg PO BID RF: 0 [place] Carbonate 300 mg/day PO QAM RF: 0 [place] Carbonate 600 mg PO HS RF: 0 simethicone 80 mg tablet 160 mg PO QIDP PRN (Reason: Abdominal Distention) RF: 0 buspirone 7.5 mg tablet 15 mg PO TIDP PRN (Reason: Anxiety) RF: 0 trazodone 50 mg tablet 150 mg PO HS RF: 0 pramipexole 1 mg Tablet 1 mg PO BID RF: 0 clobetasol 0.05 % Cream 1 applic TOPICAL BIDP PRN (Reason: Skin Irritation) RF: 0 ferrous sulfate 325 mg (65 mg iron) Tablet 325 mg PO QDAY RF: 0 fluticasone propionate 50 mcg/actuation Peculiar,Suspension 1 spray INTRANASAL BIDP PRN (Reason: Congestion) RF: 0 budesonide-formoterol [Symbicort] 80-4.5 mcg/actuation Hfa Aerosol Inhaler 1 puff INHALATION BID RF: 0 estradiol 0.05 mg/24 hr Patch Weekly 1 patch TRANSDERMAL ONCE RF: 0 thiamine HCl (vitamin B1) [Vitamin B-1] 100 mg Tablet 100 mg PO DAILY RF: 0 dicyclomine 20 mg Tablet 20 mg PO BID RF: 0 docusate sodium 100 mg Capsule 100 mg PO DAILY RF: 0 epinephrine 0.3 mg/0.3 mL Auto-Injector 0.3 mg IM PRN PRN (Reason: Allergic Symptoms) RF: 0 etodolac 500 mg Tablet 500 mg PO BID RF: 0 sodium fluoride-pot nitrate 1.1-5 % Paste 1 applic dental DAILY RF: 0 cholecalciferol (vitamin D3) [Vitamin D3] 125 mcg (5,000 unit) Tablet 125 mcg PO DAILY RF: 0 Probiotic 1 cap PO DAILY RF: 0 cyclobenzaprine 10 MG tablet 10 mg PO BIDP PRN (Reason: Muscle Spasm) RF: 0 oxycodone-acetaminophen [Endocet] 10-325 mg Tablet 1 tab PO Q4H PRN (Reason: Pain) Qty: 60 RF: 0 potassium chloride [Klor-Con M10] 10 mEq tablet,ER particles/crystals 10 meq PO DAILY RF: 0 Eliquis 5 mg tablet 5 mg PO BID RF: 0
[2020-07-06] MEDS ORDERED: ZINC SULFATE 50 MG CAPSULE PO ONE (10:01)
[2020-07-06 10:15] LABS: Hematocrit 32.9 % (36.0-48.0); Hemoglobin 10.6 g/dL (12.0-15.0); Mean Cell Volume 90.9 fL (80.0-100.0); Mean Corpuscular HGB Conc 32.2 g/dL (31.0-36.0); Mean Platelet Volume 8.9 fL (7.4-10.4); Platelet Count 236 K/mcL (140-440); RBC 3.62 M/mcL (4.00-5.20); Red Cell Distribution Width 14.3 % (11.5-14.5); WBC 5.3 K/mcL (4.5-11.0)
[2020-07-06 10:34] LABS: ALT/SGPT 16 U/L (<40); AST/SGOT 36 U/L (<32); Albumin 3.3 gm/dL (3.2-5.2); Albumin/Globulin Ratio 1.1 (1.0-2.3); Alkaline Phosphatase 86 U/L (39-117); Bilirubin,Total 0.4 mg/dL (0.1-1.0); Blood Urea Nitrogen 7 mg/dL (8-23); Calcium 8.5 mg/dL (8.6-10.4); Carbon Dioxide 24 mmol/L (22-30); Chloride 98 mmol/L (96-108); Globulin 3.1 gm/dL (2.2-3.7); Glomerular Filtration Rate 93; Glucose 100 mg/dL (70-105)
[2020-07-06 10:46] LABS: Ferritin 321.6 ng/mL (30.0-400.0)
[2020-07-06 10:49] LABS: Band Neutrophils % 3 % (0-10); Lymphocytes % 17 % (15-49); Metamyelocytes % 1 %; Monocytes % (Manual) 4 % (1-12); Platelet Estimate NORMAL (Normal); RBC Morphology NORMAL (Normal); Reactive Lymphocytes 1 % (0-2); Segmented Neutrophils % 74 % (38-78)
[2020-07-06] MEDS ORDERED: REMDESIVIR 200 MG in 0.9 % SODIUM CHLORIDE 250 ML IV ONE (12:47)
--- NOTE | 2020-07-06 13:20 | Internal Med History&Physical ---
HPI History of Present Illness Patient information: Note initiated : 07/06/20 at 1:11 pm Service Date, if different from initiated Date: [] Patient: Saundra Cardona a 60 y/o F admitted on for SOB . Chief Complaint: [] History of present illness: Ms. Cardona is a 60 year old F Presents the ED with cough and shortness of breath. States a friend visited her on Friday and was tested positive for Covid. She started getting symptoms on Friday with shortness of breath and cough. Her cough is productive of bloody sputum. Is also had diarrhea but has had this for a week. She had a hernia repair earlier in the month. In the ED she seemed to do okay on room air while resting but then quickly desatted into the high 70s with ambulation. Chest x-ray with peripheral bilateral infiltrates. Chemistry with mildly low potassium. Tested post positive for Covid in ED. She denies fevers chills headache. Review of Systems: Pertinent positives as above. Denies headache/fever/chills/nausea/vomiting/chest pain. Remaining 10 point review of system reviewed negative PFSH PFSH All Active Problems (Updated 07/06/20 @ 13:06 by Derick Lala MD) Pneumonia due to 2019 novel coronavirus (Acute) Postoperative abdominal pain (Acute) Morbid obesity (Acute) Seroma after procedure (Acute) Abdominal pain, acute, left lower quadrant (Acute) Change of dressing (Acute) Blurred vision, bilateral (Acute) Abdominal pain (Acute) Leg pain, right (Acute) Constipation due to opioid therapy (Acute) Epistaxis (Acute) Anxiety (Acute) Pruritus (Acute) Lumbar back pain (Acute) Device in situ (Acute) Numbness of left hand (Acute) Left arm pain (Acute) RLS (restless legs syndrome) (Chronic) Tenosynovitis, de Quervain (Acute) DC on CPAP (Chronic) DC (obstructive sleep apnea) (Chronic) COPD (chronic obstructive pulmonary disease) (Chronic) Allergic reaction to insect bite (Acute) Cracked skin on feet (Acute) S/P TKR (total knee replacement) (Chronic) Lumbago (Acute) Dizziness (Acute) Shortness of breath (Acute) Hyperventilation (Acute) Anemia (Acute) Muscle pain (Acute) Hemoptysis (Acute) COPD exacerbation (Acute) Hemoptysis (Acute) Medical History (Updated 07/06/20 @ 13:06 by Derick Lala MD) Anxiety (Chronic) Arthritis (Chronic) Asthma (Chronic) Costalchondritis (Inactive) Depression (Chronic) GERD (gastroesophageal reflux disease) (Chronic) Hernia (Chronic) High cholesterol (Chronic) Hypertension (Chronic) Incarcerated hernia (Inactive) Incarcerated incisional hernia (Inactive) Lumbago (Acute) Morbid obesity (Acute) Orthostatic hypotension (Inactive) DC (obstructive sleep apnea) (Chronic) DC (obstructive sleep apnea) (Chronic) DC on CPAP (Chronic) Thyroid disease (Chronic) UTI (urinary tract infection) (Resolved) Surgical History Cholecystectomy planned (Chronic) H/O: hysterectomy (Chronic) History of appendectomy (Chronic) History of laparotomy (Acute) 06/19/2020-LAPAROTOMY WITH EXPLANTATION OF MESH GRAFT BILATERAL SEPARATION OF COMPONENTS PERITONEAL ADHESIOLYSIS MESH GRAFT REPAIR OF INCISIONAL HERNIA,RECURRENT S/P hernia surgery (Chronic) S/P left knee surgery (Chronic) S/P right knee surgery (Chronic) S/P TKR (total knee replacement) (Chronic) Family History Father , renal failure No problems noted. Brother No problems noted. Brother 3-vessel coronary artery disease Sister Cervical cancer Social History marital status: single physical activity: none smoking status: Former smoker quit date: 06/09/04 pack-years: 27 alcohol intake frequency: a few times a month substance use type: does not use MEDS/ALLERGIES Home Medications and Allergies Home Medications Medication Instructions Recorded Confirmed Type [place] Carbonate 300 mg/day PO QAM 10/06/18 07/06/20 History [place] Carbonate 600 mg PO HS 10/06/18 07/06/20 History albuterol sulfate 2 puff IH Q4HP PRN 10/06/18 07/06/20 History bisoprolol fumarate 10 mg PO DAILY 10/06/18 07/06/20 History duloxetine 60 mg PO BID 10/06/18 07/06/20 History pantoprazole 40 mg PO BID 10/06/18 07/06/20 History rosuvastatin 40 mg PO HS 10/06/18 07/06/20 History levothyroxine 200 mcg capsule 200 mcg PO QDAY 10/19/18 07/06/20 History imipramine HCl 10 mg tablet 50 mg PO ONCE tab 02/22/19 07/06/20 History buspirone 7.5 mg tablet 15 mg PO TIDP PRN tab 11/10/19 07/06/20 History furosemide 20 mg tablet 20 mg PO QAM 11/10/19 07/06/20 History budesonide-formoterol [Symbicort] 1 puff INHALATION BID 01/08/20 07/06/20 History pramipexole 1 mg PO BID 01/08/20 07/06/20 History trazodone 150 mg PO HS 01/08/20 07/06/20 History cyclobenzaprine 10 mg PO BIDP PRN 06/18/20 07/06/20 History dicyclomine 20 mg PO BID 06/18/20 07/06/20 History docusate sodium 100 mg PO DAILY 06/18/20 07/06/20 History epinephrine 0.3 mg IM PRN PRN 06/18/20 07/06/20 History etodolac 500 mg PO BID 06/18/20 07/06/20 History oxycodone-acetaminophen [Endocet] 1 tab PO Q4H PRN #60 tab 06/24/20 07/06/20 Rx cefuroxime axetil 500 mg tablet 500 mg PO BID #30 tab 07/04/20 07/06/20 Rx apixaban [Eliquis] 5 mg PO BID 07/06/20 07/06/20 History potassium chloride [Klor-Con M10] 10 meq PO DAILY 07/06/20 07/06/20 History Allergies Allergy/AdvReac Type Severity Reaction Status Date / Time fexofenadine [From KAREL] Allergy Intermediate RASH Verified 07/06/20 08:45 rofecoxib [From VIOXX] Allergy Intermediate RASH Verified 07/06/20 08:45 NARCOTICS AdvReac Mild HALLUCINATE Uncoded 07/04/20 09:49 EXAM Constitutional Vitals: Temp Pulse Resp BP Pulse Ox 99.1 F H 73 36 H 115/62 92 07/06/20 08:45 07/06/20 12:56 07/06/20 12:56 07/06/20 12:56 07/06/20 12:56 Exam: General: Alert, Awake, No acute Distress. obese Eyes/N/T: EOMI, PERRL, Head/Neck: neck supple, normocephalic atraumatic CV: RRR, No murmurs, normal s1/s2 Pulm: fine rale b/l R>L, no wheezing Abd: soft, nontender, +BS x4 Ext: no clubbing/cyanosis, 1+ b/l LE edema Neuro: Alert, no focal deficits, moves all extremities, CN 2-12 grossly intact, symmetrical strength b/l upper/lower, sensations intact b/l upper/lower Skin: warm/dry DATA Data Completed and Pending Labs: Labs from last 24 hours 07/06/20 07/06/20 07/06/20 09:11 09:11 09:11 WBC RBC Hgb Hct MCV MCH MCHC RDW Plt Count MPV Seg Neutrophils % Band Neutrophils % Lymphocytes % Monocytes % (Manual) Metamyelocytes % Reactive Lymphocytes Platelet Estimate RBC Morphology D-Dimer 2.29 H Sodium Potassium Chloride Carbon Dioxide Anion Gap BUN Creatinine GFR Calculation Glucose Calcium Ferritin 321.6 Total Bilirubin AST ALT Alkaline Phosphatase Troponin T < 0.01 NT-Pro-B Natriuret Pep Total Protein Albumin Globulin Albumin/Globulin Ratio 07/06/20 07/06/20 07/06/20 09:11 09:11 09:11 WBC 5.3 RBC 3.62 L Hgb 10.6 L Hct 32.9 L MCV 90.9 MCH 29.3 MCHC 32.2 RDW 14.3 Plt Count 236 MPV 8.9 Seg Neutrophils % 74 Band Neutrophils % 3 Lymphocytes % 17 Monocytes % (Manual) 4 Metamyelocytes % 1 Reactive Lymphocytes 1 Platelet Estimate Normal RBC Morphology Normal D-Dimer Sodium 137 Potassium 3.1 L Chloride 98 Carbon Dioxide 24 Anion Gap 15.0 BUN 7 L Creatinine 0.7 GFR Calculation 93 Glucose 100 Calcium 8.5 L Ferritin Total Bilirubin 0.4 AST 36 H ALT 16 Alkaline Phosphatase 86 Troponin T NT-Pro-B Natriuret Pep 424.6 H Total Protein 6.4 Albumin 3.3 Globulin 3.1 Albumin/Globulin Ratio 1.1 A/P Narrative A/P Narrative: A: *Covid pneumonia: *Acute hypoxic respiratory failure: -on 2L currently *COPD (1-2L NC @night @home): *Hypokalemia: *HTN/HLD: *Depression/anxiety/bipolar: *Hypothyroidism: *GERD: *Obesity: *Diarrhea: *Recent hernia repair: supposed to see Dr. Avila on July 11 P: -Remdesivir/Dexamethasone -O2 supp, wean -IS/Acapella, prn nebs/RT -Stool studies -cont home BB/lasix -cont home psych meds - -pt/ot -f/u with Dr. Avila -ppx: Lovenox/home ppi DNR Time Spent With Patient Time: Total time spent is greater than 50% in coordination of care (as documented) at patient's floor/unit and/or counseling patient:
[2020-07-06] MEDS ORDERED: POTASSIUM CHLORIDE 40 MEQ in DEXTROSE 5% IN WATER 500 ML IV PRN (14:38)
[2020-07-06] MEDS ORDERED: POLYETHYLENE GLYCOL 3350 17 GM PACKET PO PRN (14:38)
[2020-07-06] MEDS ORDERED: ALBUTEROL SULFATE 200 PUFF INHALER IH PRN (14:38)
[2020-07-06] MEDS ORDERED: SENNOSIDES 1 TABLET PO PRN (14:38)
[2020-07-06] MEDS ORDERED: ONDANSETRON 4 MG/2 ML VIAL IV PRN (14:38)
[2020-07-06] MEDS ORDERED: IPRATROPIUM/ALBUTEROL 3 ML AMPUL.NEB NEB PRN (14:38)
[2020-07-06] MEDS ORDERED: oxyCODONE/APAP 10/325MG TABLET PO PRN (14:38)
[2020-07-06] MEDS ORDERED: POTASSIUM CHLORIDE 20 MEQ TABLET PO PRN ×2 (14:38)
[2020-07-06] MEDS ORDERED: EPINEPHRINE 0.3 MG IM PRN (14:38)
[2020-07-06] MEDS ORDERED: MAGNESIUM SULFATE 2 GM/50 ML BAG IV PRN (14:38)
[2020-07-06 14:45] LABS: Creatine Kinase 113 U/L (24-170)
[2020-07-06] MEDS ORDERED: CYCLOBENZAPRINE 10 MG TABLET PO PRN (14:46)
[2020-07-06] MEDS ORDERED: busPIRone 15 MG TABLET PO PRN (15:07)
[2020-07-06] MEDS: 0.9 % SODIUM CHLORIDE 10 ML SYRINGE IV SCH ×2 (17:45→21:56)
[2020-07-06] MEDS: IPRATROPIUM/ALBUTEROL SULFATE 1 PUFF INHALER INH SCH ×2 (17:46→21:56)
[2020-07-06] MEDS: PANTOPRAZOLE 40 MG TABLET PO SCH (17:46)
[2020-07-06] MEDS ORDERED: ETODOLAC 500 MG PO SCH (21:00)
[2020-07-06] MEDS ORDERED: ENOXAPARIN 30 MG/0.3 ML SYRINGE SQ SCH (21:00)
[2020-07-06 21:11] LABS: Appearance,Urine CLEAR (Clear); Bilirubin,Urine Negative (Negative); Color,Urine STRAW; Culture Indicated,Urine No; Glucose,Urine (UA) Negative (Negative); Ketones,Urine Negative (Negative); Leukocyte Esterase,Urine Negative /ug (Negative); Nitrate,Urine Negative (Negative); Protein,Urine Negative (Negative); Specific Gravity,Urine 1.008 (1.000-1.035); Urine Blood Negative (Negative); Urine RBC 1 /hpf (0-3); Urine Squamous Epithelial Cell 0 /hpf (0-4); Urine WBC < 1 /hpf (0-4); Urobilinogen,Urine Negative
[2020-07-06] MEDS: traZODone HCL 50 MG TABLET PO SCH (21:50)
[2020-07-06] MEDS: APIXABAN 5 MG TABLET PO SCH (21:55)
[2020-07-06] MEDS: DULoxetine 30 MG CAPSULE PO SCH (21:55)
[2020-07-06] MEDS: PRAMIPEXOLE 1 MG TABLET PO SCH (21:55)
[2020-07-06] MEDS: LITHIUM CARBONATE 150 MG CAPSULE PO SCH (21:55)
[2020-07-06] MEDS: DICYCLOMINE 20 MG TABLET PO SCH (21:55)
[2020-07-06] MEDS: SIMVASTATIN 40 MG TABLET PO SCH (21:55)
[2020-07-07] MEDS: 0.9 % SODIUM CHLORIDE 10 ML SYRINGE IV SCH ×3 (04:25→20:29)
[2020-07-07] MEDS: LEVOTHYROXINE 100 MCG TABLET PO SCH (07:34)
[2020-07-07] MEDS: POTASSIUM CHLORIDE 10 MEQ TABLET PO SCH (07:35)
[2020-07-07] MEDS: PANTOPRAZOLE 40 MG TABLET PO SCH ×2 (07:35→16:15)
--- NOTE | 2020-07-07 07:51 | Internal Med Progress Note ---
SUBJECTIVE Subjective Patient information: Note initiated : 07/07/20 at 7:46 am Service Date, if different from initiated Date: [] Patient: Saundra Cardona 60 y/o F admitted on 07/06/20 for SOB . Chief Complaint: [] Interval history: Presents the ED with cough and shortness of breath. States a friend visited her on Friday and was tested positive for Covid. She started getting symptoms on Friday with shortness of breath and cough. Her cough is productive of bloody sputum. Is also had diarrhea but has had this for a week. She had a hernia repair earlier in the month. In the ED she seemed to do okay on room air while resting but then quickly desatted into the high 70s with ambulation. Chest x-ray with peripheral bilateral infiltrates. Chemistry with mildly low potassium. Tested post positive for Covid in ED. She denies fevers chills headache. 07/07 Has headaches. Feeling a little better today. No diarrhea. Mild cough. Denies shortness of breath at rest. Review of Systems: denies headache/fever/chills/nausea/vomiting/chest or abdominal pain/diarrhea. Otherwise see above. Constitutional Vitals: Vital Signs Temp Pulse Resp BP Pulse Ox 97.6 F 74 26 H 132/73 90 07/07/20 06:44 07/07/20 06:44 07/07/20 06:44 07/07/20 06:44 07/07/20 06:44 Period Temp Pulse Resp BP Sys/Méndez Pulse Ox Last 24 Hr 97.6 F-99.4 F 71-83 22-36 93-136/45-77 78-98 Intake and Output 07/06/20 07/07/20 07/07/20 21:59 05:59 13:59 Intake Total 800 Output Total 1273 810 300 Balance -127 -10 -300 Weight 108.272 kg Intake & Output: Intake & Output 07/06/20 07/07/20 07/07/20 21:59 05:59 13:59 Intake Total 800 Output Total 1273 810 300 Balance -1273 -10 -300 Weight 108.272 kg Intake: Oral 800 Output: Drainage 23 10 Left MARCOS Drain 15 3 Medial MARCOS Drain 5 4 Right MARCOS Drain 3 3 Void Amount 1250 800 300 Other: Urine Appearance Clear Clear Clear Sediment Urine Color Bright Yellow Dark Yellow Dark Yellow Urine Odor Normal Exam: General: Alert, Awake, No acute Distress. obese Eyes/N/T: EOMI, Head/Neck: neck supple, CV: RRR, No murmurs, Pulm: fine rale b/l R>L, no wheezing Abd: soft, nontender, +BS x4 Ext: no clubbing/cyanosis, 1+ b/l LE edema Neuro: Alert, no focal deficits, moves all extremities, Skin: warm/dry OBJ DATA Labs CBC & Chem 7: 07/07/20 06:20 07/07/20 06:20 Labs: Abnormal Lab Results 07/06/20 07/06/20 07/06/20 13:16 09:11 09:11 RBC Hgb Hct D-Dimer 2.29 H Potassium BUN Calcium AST C-Reactive Protein 8.50 H NT-Pro-B Natriuret Pep 424.6 H 07/06/20 07/06/20 09:11 09:11 RBC 3.62 L Hgb 10.6 L Hct 32.9 L D-Dimer Potassium 3.1 L BUN 7 L Calcium 8.5 L AST 36 H C-Reactive Protein NT-Pro-B Natriuret Pep Meds: Medications Acetaminophen (Tylenol) 650 mg PO Q6HP PRN PRN Reason: PAIN/FEVER > 101 Albuterol Sulfate (Ventolin) 2 puff IH Q4HP PRN PRN Reason: Shortness Of Breath Albuterol/Ipratropium (Duoneb) 3 ml NEB Q4HP PRN PRN Reason: Shortness Of Breath Albuterol/Ipratropium (Combivent) 2 puff INH TID [facility] Last Admin: 07/06/20 21:56 Dose: Not Given Documented by: Apixaban (Eliquis) 5 mg PO BID [facility] Last Admin: 07/06/20 21:55 Dose: 5 mg Documented by: Bisoprolol Fumarate (Zebeta) 10 mg PO DAILY [facility] Buspirone HCl (Buspar) 15 mg PO TIDP PRN PRN Reason: Anxiety Cyclobenzaprine HCl (Flexeril) 10 mg PO BIDP PRN PRN Reason: Muscle Spasm Dexamethasone (Decadron) 6 mg PO DAILY [facility] Dicyclomine HCl (Dicyclomine) 20 mg PO BID [facility] Last Admin: 07/06/20 21:55 Dose: 20 mg Documented by: Docusate Sodium (Colace) 100 mg PO DAILY [facility] Duloxetine HCl (Cymbalta) 60 mg PO BID [facility] Last Admin: 07/06/20 21:55 Dose: 60 mg Documented by: Furosemide (Lasix) 20 mg PO QAM [facility] Potassium Chloride 40 meq/ (Dextrose) 520 mls @ 130 mls/hr IV UD PRN PRN Reason: Potassium < 3 Magnesium Sulfate (Magnesium Sulfate) 2 gm in 50 mls @ 50 mls/hr IV UD PRN PRN Reason: Magnesium </= 1.6 REMDESIVIR 100 mg/ Sodium (Chloride) 250 mls @ 500 mls/hr IV DAILY [facility] Stop: 07/10/20 09:29 Imipramine HCl (Tofranil) 50 mg PO DAILY [facility] Levothyroxine Sodium (Synthroid) 200 mcg PO ACB [facility] Last Admin: 07/07/20 07:34 Dose: 200 mcg Documented by: [place] Carbonate ([place] Carbonate) 300 mg PO DAILY [facility] [place] Carbonate ([place] Carbonate) 600 mg PO HS [facility] Last Admin: 07/06/20 21:55 Dose: 600 mg Documented by: Ondansetron HCl (Zofran) 4 mg IV Q4HP PRN PRN Reason: Nausea And Vomiting Oxycodone/Acetaminophen (Percocet 10-325mg) 1 tab PO Q4HP PRN; Protocol PRN Reason: Pain Pantoprazole Sodium (Protonix) 40 mg PO BIDAC [facility] Last Admin: 07/07/20 07:35 Dose: 40 mg Documented by: Budesonide- Formoterol [ Symbicort] 80-4.5 Mcg/Actuation Inhaler 1 dose INH BID [facility] Last Admin: 07/06/20 21:56 Dose: 1 dose Documented by: Polyethylene Glycol (Miralax) 17 gm PO DAILYP PRN PRN Reason: Constipation Potassium Chloride (Kdur) 10 meq PO QAMCC [facility] Last Admin: 07/07/20 07:35 Dose: 10 meq Documented by: Potassium Chloride (Kdur) 40 meq PO UD PRN PRN Reason: Potssium is 3-3.5 Potassium Chloride (Kdur) 40 meq PO UD PRN PRN Reason: Potassium < 3 Pramipexole Dihydrochloride (Mirapex) 1 mg PO BID [facility] Last Admin: 01/28/21 21:55 Dose: 1 mg Documented by: Senna (Senokot) 2 tab PO DAILYP PRN PRN Reason: Constipation Simvastatin (Zocor) 40 mg PO HS [facility] Last Admin: 07/06/20 21:55 Dose: 40 mg Documented by: Sodium Chloride (Saline Flush) 10 ml IV Q8 [facility] Last Admin: 07/07/20 04:25 Dose: 10 ml Documented by: Trazodone HCl (Desyrel) 150 mg PO HS [facility] Last Admin: 07/06/20 21:50 Dose: 150 mg Documented by: A/P Narrative A/P Narrative: A: *Covid pneumonia: *Acute hypoxic respiratory failure: -on 2L currently *COPD (1-2L NC @night @home): *Hypokalemia: improved *HTN/HLD: *Depression/anxiety/bipolar: *Hypothyroidism: *GERD: *Obesity: *Diarrhea: non since admit *h/o DVT: on eliquis *Recent hernia repair: supposed to see Dr. Avila on July 11 P: -Remdesivir/Dexamethasone -O2 supp, wean -IS/Acapella, home IH's, prn nebs/RT -Stool studies if diarrhea again -cont home BB/lasix -cont home psych meds - -pt/ot -f/u with Dr. Avila -ppx: home eliquis/home ppi DNR Time Spent With Patient Time: Total time spent is greater than 50% in coordination of care (as documented) at patient's floor/unit and/or counseling patient: QUALITY Stroke Symptom Onset Unknown: No VTE Deep Vein Thrombosis/Pulmonary Embolism Present on Admission: No
[2020-07-07] MEDS: DOCUSATE SODIUM 100 MG CAPSULE PO SCH (08:05)
[2020-07-07] MEDS: ACETAMINOPHEN 325 MG TABLET PO PRN (08:05)
[2020-07-07] MEDS: BISOPROLOL 5 MG TABLET PO SCH (08:06)
[2020-07-07] MEDS: LITHIUM CARBONATE 150 MG CAPSULE PO SCH ×2 (08:06→20:27)
[2020-07-07] MEDS: PRAMIPEXOLE 1 MG TABLET PO SCH ×2 (08:06→20:28)
[2020-07-07] MEDS: APIXABAN 5 MG TABLET PO SCH ×2 (08:06→20:28)
[2020-07-07] MEDS: DULoxetine 30 MG CAPSULE PO SCH ×2 (08:07→20:27)
[2020-07-07] MEDS: DEXAMETHASONE 4 MG TABLET PO SCH (08:07)
[2020-07-07] MEDS: FUROSEMIDE 20 MG TABLET PO SCH (08:07)
[2020-07-07] MEDS: IMIPRAMINE 25 MG TABLET PO SCH (08:07)
[2020-07-07] MEDS: IPRATROPIUM/ALBUTEROL SULFATE 1 PUFF INHALER INH SCH ×3 (08:08→20:29)
[2020-07-07] MEDS: DICYCLOMINE 20 MG TABLET PO SCH ×2 (08:08→20:28)
[2020-07-07 08:12] LABS: ALT/SGPT 16 U/L (<40); AST/SGOT 35 U/L (<32); Albumin 2.9 gm/dL (3.2-5.2); Albumin/Globulin Ratio 0.9 (1.0-2.3); Alkaline Phosphatase 83 U/L (39-117); Bilirubin,Direct < 0.2 mg/dL (<0.3); Bilirubin,Total 0.3 mg/dL (0.1-1.0); Blood Urea Nitrogen 9 mg/dL (8-23); Calcium 8.6 mg/dL (8.6-10.4); Carbon Dioxide 21 mmol/L (22-30); Chloride 106 mmol/L (96-108); Globulin 3.3 gm/dL (2.2-3.7); Glomerular Filtration Rate 98; Glucose 113 mg/dL (70-105); Lactate Dehydrogenase 418 U/L (135-225); Phosphorous 3.3 mg/dL (2.5-4.5); Triglycerides 100 mg/dL (<150); Uric Acid 3.1 mg/dL (2.5-8.0)
[2020-07-07 08:19] LABS: Basophils # (Auto) 0.01 K/mcL (0.00-0.20); Basophils % (Auto) 0.2 % (0.0-2.0); Eosinophils # (Auto) 0 K/mcL (0.00-0.70); Eosinophils % (Auto) 0 % (0.0-7.0); Hematocrit 33.5 % (36.0-48.0); Hemoglobin 10.3 g/dL (12.0-15.0); Lymphocytes # (Auto) 0.79 K/mcL (1.50-4.80); Lymphocytes % (Auto) 18.8 % (15.0-49.0); Mean Cell Volume 93.3 fL (80.0-100.0); Mean Corpuscular HGB Conc 30.7 g/dL (31.0-36.0); Mean Platelet Volume 8.8 fL (7.4-10.4); Monocytes # (Auto) 0.54 K/mcL (0.10-0.90); Monocytes % (Auto) 12.8 % (1.0-12.0); Neutrophils % (Auto) 68.2 % (38.0-78.0); Platelet Count 272 K/mcL (140-440); RBC 3.59 M/mcL (4.00-5.20); Red Cell Distribution Width 14.1 % (11.5-14.5); WBC 4.2 K/mcL (4.5-11.0)
[2020-07-07 08:22] LABS: INR 1.1 (0.9-1.1); Prothrombin Time 15.2 sec (11.9-14.5)
[2020-07-07] MEDS: REMDESIVIR 100 MG in 0.9 % SODIUM CHLORIDE 250 ML IV SCH (08:59)
[2020-07-07] MEDS ORDERED: HYDROXYCHLOROQUINE 200 MG TABLET PO SCH (09:00)
[2020-07-07] MEDS ORDERED: ZINC SULFATE 50 MG CAPSULE PO SCH (09:00)
--- NOTE | 2020-07-07 10:12 | XRay Report ---
CLINICAL INFORMATION: f/u covid pna COMPARISON: 07/06/2020 FINDINGS: Mild cardiomegaly is unchanged. Mediastinum and pulmonary vessels are normal. Patchy infiltrates in the periphery of both lungs are markedly better aerated with only minimal residual. No effusion IMPRESSION: Improvement in patchy peripheral infiltrates both mid and lower lungs with only minimal residual Interpreted and Authenticated by: Spencer Taylor 07/07/20
[2020-07-07] MEDS: traZODone HCL 50 MG TABLET PO SCH (20:28)
[2020-07-07] MEDS: SIMVASTATIN 40 MG TABLET PO SCH (20:28)
[2020-07-08] MEDS: ACETAMINOPHEN 325 MG TABLET PO PRN (04:03)
[2020-07-08] MEDS: 0.9 % SODIUM CHLORIDE 10 ML SYRINGE IV SCH ×3 (04:18→20:21)
[2020-07-08 07:18] LABS: ALT/SGPT 19 U/L (<40); AST/SGOT 29 U/L (<32); Albumin 2.8 gm/dL (3.2-5.2); Albumin/Globulin Ratio 0.8 (1.0-2.3); Alkaline Phosphatase 81 U/L (39-117); Bilirubin,Direct < 0.2 mg/dL (<0.3); Bilirubin,Total 0.2 mg/dL (0.1-1.0); Blood Urea Nitrogen 11 mg/dL (8-23); Calcium 8.8 mg/dL (8.6-10.4); Carbon Dioxide 25 mmol/L (22-30); Chloride 107 mmol/L (96-108); Globulin 3.6 gm/dL (2.2-3.7); Glomerular Filtration Rate 93; Glucose 101 mg/dL (70-105); Lactate Dehydrogenase 395 U/L (135-225); Phosphorous 2.8 mg/dL (2.5-4.5); Triglycerides 126 mg/dL (<150); Uric Acid 3.4 mg/dL (2.5-8.0)
--- NOTE | 2020-07-08 08:01 | Internal Med Progress Note ---
SUBJECTIVE Subjective Patient information: Note initiated : 07/08/20 at 7:58 am Service Date, if different from initiated Date: [] Patient: Saundra Cardona 60 y/o F admitted on 07/06/20 for SOB . Chief Complaint: [] Interval history: Presents the ED with cough and shortness of breath. States a friend visited her on Friday and was tested positive for Covid. She started getting symptoms on Friday with shortness of breath and cough. Her cough is productive of bloody sputum. Is also had diarrhea but has had this for a week. She had a hernia repair earlier in the month. In the ED she seemed to do okay on room air while resting but then quickly desatted into the high 70s with ambulation. Chest x-ray with peripheral bilateral infiltrates. Chemistry with mildly low potassium. Tested post positive for Covid in ED. She denies fevers chills headache. 07/07 Has headaches. Feeling a little better today. No diarrhea. Mild cough. Denies shortness of breath at rest. 07/08 Feeling better today. Minimal cough. Shortness of breath improving. Does feel bloated and typically takes simethicone at home. Review of Systems: denies headache/fever/chills/nausea/vomiting/chest or abdominal pain/diarrhea. Otherwise see above. Constitutional Vitals: Vital Signs Temp Pulse Resp BP Pulse Ox 97.5 F 72 20 148/94 98 07/08/20 06:31 07/08/20 06:31 07/08/20 06:31 07/08/20 06:31 07/08/20 06:31 Period Temp Pulse Resp BP Sys/Méndez Pulse Ox Last 24 Hr 97.4 F-98.7 F 64-78 - 128-148/69-94 90-98 Intake and Output 07/07/20 07/08/20 07/08/20 21:59 05:59 13:59 Intake Total 1060 475 Output Total 611 307 300 Balance 449 168 -300 Weight 108.499 kg Intake & Output: Intake & Output 07/07/20 07/08/20 07/08/20 21:59 05:59 13:59 Intake Total 1060 475 Output Total 611 307 300 Balance 449 168 -300 Weight 108.499 kg Intake: Oral 1060 475 Output: Drainage 7 Left MARCOS Drain 3 Medial MARCOS Drain 3 Right MARCOS Drain 1 Drainage 11 Left MARCOS Drain 3 Medial MARCOS Drain 5 Right MARCOS Drain 3 Void Amount 600 300 300 Other: Meal Dinner Percent of Meal Consumed 100% Feeding Ability Independent Urine Appearance Clear Clear Clear Urine Color Bright Yellow Dark Yellow Dark Yellow Exam: General: Alert, Awake, No acute Distress. obese Eyes/N/T: EOMI, Head/Neck: neck supple, CV: RRR, No murmurs, Pulm: mild fine rales b/l R>L improving, no wheezing Abd: soft, nontender, +BS x4 Ext: no clubbing/cyanosis, 1+ b/l LE edema Neuro: Alert, no focal deficits, moves all extremities, Skin: warm/dry OBJ DATA Labs CBC & Chem 7: 07/07/20 06:20 07/08/20 05:15 Labs: Abnormal Lab Results 07/08/20 07/07/20 07/07/20 05:15 06:20 06:20 WBC RBC Hgb Hct MCHC [place] % (Auto) Lymph # (Auto) PT D-Dimer 1.94 H Potassium Carbon Dioxide BUN Glucose Calcium AST Lactate Dehydrogenase 395 H C-Reactive Protein 2.90 H 6.80 H NT-Pro-B Natriuret Pep Albumin 2.8 L Albumin/Globulin Ratio 0.8 L 07/07/20 07/07/20 07/07/20 06:20 06:20 06:20 WBC 4.2 L RBC 3.59 L Hgb 10.3 L Hct 33.5 L MCHC 30.7 L [place] % (Auto) 12.8 H Lymph # (Auto) 0.79 L PT 15.2 H D-Dimer Potassium Carbon Dioxide 21 L BUN Glucose 113 H Calcium AST 35 H Lactate Dehydrogenase 418 H C-Reactive Protein NT-Pro-B Natriuret Pep Albumin 2.9 L Albumin/Globulin Ratio 0.9 L 07/06/20 07/06/20 07/06/20 13:16 09:11 09:11 WBC RBC Hgb Hct MCHC [place] % (Auto) Lymph # (Auto) PT D-Dimer 2.29 H Potassium Carbon Dioxide BUN Glucose Calcium AST Lactate Dehydrogenase C-Reactive Protein 8.50 H NT-Pro-B Natriuret Pep 424.6 H Albumin Albumin/Globulin Ratio 07/06/20 07/06/20 09:11 09:11 WBC RBC 3.62 L Hgb 10.6 L Hct 32.9 L MCHC [place] % (Auto) Lymph # (Auto) PT D-Dimer Potassium 3.1 L Carbon Dioxide BUN 7 L Glucose Calcium 8.5 L AST 36 H Lactate Dehydrogenase C-Reactive Protein NT-Pro-B Natriuret Pep Albumin Albumin/Globulin Ratio Meds: Medications Acetaminophen (Tylenol) 650 mg PO Q6HP PRN PRN Reason: PAIN/FEVER > 101 Last Admin: 07/08/20 04:03 Dose: 650 mg Documented by: Albuterol Sulfate (Ventolin) 2 puff IH Q4HP PRN PRN Reason: Shortness Of Breath Albuterol/Ipratropium (Duoneb) 3 ml NEB Q4HP PRN PRN Reason: Shortness Of Breath Albuterol/Ipratropium (Combivent) 2 puff INH TID [facility] Last Admin: 07/07/20 20:29 Dose: 2 puff Documented by: Apixaban (Eliquis) 5 mg PO BID [facility] Last Admin: 07/07/20 20:28 Dose: 5 mg Documented by: Bisoprolol Fumarate (Zebeta) 10 mg PO DAILY [facility] Last Admin: 07/07/20 08:06 Dose: 10 mg Documented by: Buspirone HCl (Buspar) 15 mg PO TIDP PRN PRN Reason: Anxiety Cyclobenzaprine HCl (Flexeril) 10 mg PO BIDP PRN PRN Reason: Muscle Spasm Dexamethasone (Decadron) 6 mg PO DAILY [facility] Last Admin: 07/07/20 08:07 Dose: 6 mg Documented by: Dicyclomine HCl (Dicyclomine) 20 mg PO BID [facility] Last Admin: 07/07/20 20:28 Dose: 20 mg Documented by: Docusate Sodium (Colace) 100 mg PO DAILY [facility] Last Admin: 07/07/20 08:05 Dose: 100 mg Documented by: Duloxetine HCl (Cymbalta) 60 mg PO BID [facility] Last Admin: 07/07/20 20:27 Dose: 60 mg Documented by: Furosemide (Lasix) 20 mg PO QAM [facility] Last Admin: 07/07/20 08:07 Dose: 20 mg Documented by: Potassium Chloride 40 meq/ (Dextrose) 520 mls @ 130 mls/hr IV UD PRN PRN Reason: Potassium < 3 Magnesium Sulfate (Magnesium Sulfate) 2 gm in 50 mls @ 50 mls/hr IV UD PRN PRN Reason: Magnesium </= 1.6 REMDESIVIR 100 mg/ Sodium (Chloride) 250 mls @ 500 mls/hr IV DAILY [facility] Stop: 07/10/20 09:29 Last Infusion: 07/07/20 09:35 Dose: Infused Documented by: Imipramine HCl (Tofranil) 50 mg PO DAILY [facility] Last Admin: 07/07/20 08:07 Dose: 50 mg Documented by: Levothyroxine Sodium (Synthroid) 200 mcg PO ACB [facility] Last Admin: 07/07/20 07:34 Dose: 200 mcg Documented by: [place] Carbonate ([place] Carbonate) 300 mg PO DAILY [facility] Last Admin: 07/07/20 08:06 Dose: 300 mg Documented by: [place] Carbonate ([place] Carbonate) 600 mg PO HS [facility] Last Admin: 07/07/20 20:27 Dose: 600 mg Documented by: Ondansetron HCl (Zofran) 4 mg IV Q4HP PRN PRN Reason: Nausea And Vomiting Last Admin: 07/07/20 08:08 Dose: 4 mg Documented by: Oxycodone/Acetaminophen (Percocet 10-325mg) 1 tab PO Q4HP PRN; Protocol PRN Reason: Pain Pantoprazole Sodium (Protonix) 40 mg PO BIDAC [facility] Last Admin: 07/07/20 16:15 Dose: 40 mg Documented by: Budesonide- Formoterol [ Symbicort] 80-4.5 Mcg/Actuation Inhaler 1 dose INH BID [facility] Last Admin: 07/07/20 20:36 Dose: 1 dose Documented by: Polyethylene Glycol (Miralax) 17 gm PO DAILYP PRN PRN Reason: Constipation Last Admin: 07/07/20 14:02 Dose: 17 gm Documented by: Potassium Chloride (Kdur) 10 meq PO QAMCC [facility] Last Admin: 07/07/20 07:35 Dose: 10 meq Documented by: Potassium Chloride (Kdur) 40 meq PO UD PRN PRN Reason: Potssium is 3-3.5 Potassium Chloride (Kdur) 40 meq PO UD PRN PRN Reason: Potassium < 3 Pramipexole Dihydrochloride (Mirapex) 1 mg PO BID [facility] Last Admin: 07/07/20 20:28 Dose: 1 mg Documented by: Senna (Senokot) 2 tab PO DAILYP PRN PRN Reason: Constipation Simvastatin (Zocor) 40 mg PO HS [facility] Last Admin: 07/07/20 20:28 Dose: 40 mg Documented by: Sodium Chloride (Saline Flush) 10 ml IV Q8 [facility] Last Admin: 07/08/20 04:18 Dose: 10 ml Documented by: Trazodone HCl (Desyrel) 150 mg PO HS [facility] Last Admin: 07/07/20 20:28 Dose: 150 mg Documented by: A/P Narrative A/P Narrative: A: *Covid pneumonia: *Acute hypoxic respiratory failure: -on 2-4L *COPD (1-2L NC @night @home): *Hypokalemia: improved *HTN/HLD: *Depression/anxiety/bipolar: *Hypothyroidism: *GERD: *Obesity: *DC: on cpap *Diarrhea: none since admit *h/o DVT: on eliquis *Recent hernia repair: supposed to see Dr. Avila on July 11 P: -Remdesivir/Dexamethasone -O2 supp, wean -IS/Acapella, home IH's, prn nebs/RT -Stool studies if diarrhea again -cont home BB/lasix -cont home psych meds -nocturanl cpap -pt/ot -f/u with Dr. Avila -ppx: home eliquis/home ppi DNR Time Spent With Patient Time: Total time spent is greater than 50% in coordination of care (as documented) at patient's floor/unit and/or counseling patient: QUALITY Stroke Symptom Onset Unknown: No VTE Deep Vein Thrombosis/Pulmonary Embolism Present on Admission: No
[2020-07-08] MEDS ORDERED: SIMETHICONE 80 MG TAB.CHEW CHEWED ONE (08:58)
[2020-07-08] MEDS: BISOPROLOL 5 MG TABLET PO SCH (09:40)
[2020-07-08] MEDS: DICYCLOMINE 20 MG TABLET PO SCH ×2 (09:41→20:21)
[2020-07-08] MEDS: DULoxetine 30 MG CAPSULE PO SCH ×2 (09:41→20:20)
[2020-07-08] MEDS: LITHIUM CARBONATE 150 MG CAPSULE PO SCH ×2 (09:41→20:20)
[2020-07-08] MEDS: ZINC SULFATE 50 MG CAPSULE PO SCH (09:41)
[2020-07-08] MEDS: POTASSIUM CHLORIDE 10 MEQ TABLET PO SCH (09:42)
[2020-07-08] MEDS: IMIPRAMINE 25 MG TABLET PO SCH (09:42)
[2020-07-08] MEDS: DOCUSATE SODIUM 100 MG CAPSULE PO SCH (09:42)
[2020-07-08] MEDS: DEXAMETHASONE 4 MG TABLET PO SCH (09:42)
[2020-07-08] MEDS: PRAMIPEXOLE 1 MG TABLET PO SCH ×2 (09:43→20:20)
[2020-07-08] MEDS: FUROSEMIDE 20 MG TABLET PO SCH (09:43)
[2020-07-08] MEDS: LEVOTHYROXINE 100 MCG TABLET PO SCH (09:44)
[2020-07-08] MEDS: PANTOPRAZOLE 40 MG TABLET PO SCH ×2 (09:45→17:21)
[2020-07-08] MEDS: IPRATROPIUM/ALBUTEROL SULFATE 1 PUFF INHALER INH SCH ×3 (09:45→20:19)
[2020-07-08] MEDS: REMDESIVIR 100 MG in 0.9 % SODIUM CHLORIDE 250 ML IV SCH (09:53)
[2020-07-08] MEDS: APIXABAN 5 MG TABLET PO SCH ×2 (11:18→20:21)
[2020-07-08] MEDS: SIMETHICONE 80 MG TAB.CHEW CHEWED SCH ×3 (14:33→20:21)
[2020-07-08] MEDS: traZODone HCL 50 MG TABLET PO SCH (20:20)
[2020-07-08] MEDS: SIMVASTATIN 40 MG TABLET PO SCH (20:21)
[2020-07-09] MEDS: 0.9 % SODIUM CHLORIDE 10 ML SYRINGE IV SCH ×3 (04:57→21:26)
[2020-07-09] MEDS: ZINC SULFATE 50 MG CAPSULE PO SCH (07:33)
[2020-07-09] MEDS: PANTOPRAZOLE 40 MG TABLET PO SCH ×2 (07:34→16:37)
[2020-07-09] MEDS: IMIPRAMINE 25 MG TABLET PO SCH (07:34)
[2020-07-09] MEDS: APIXABAN 5 MG TABLET PO SCH ×2 (07:34→21:26)
[2020-07-09] MEDS: DEXAMETHASONE 4 MG TABLET PO SCH (07:34)
[2020-07-09] MEDS: LITHIUM CARBONATE 150 MG CAPSULE PO SCH ×2 (07:35→21:25)
[2020-07-09] MEDS: DOCUSATE SODIUM 100 MG CAPSULE PO SCH (07:35)
[2020-07-09] MEDS: PRAMIPEXOLE 1 MG TABLET PO SCH ×2 (07:35→21:26)
[2020-07-09] MEDS: DULoxetine 30 MG CAPSULE PO SCH ×2 (07:35→21:24)
[2020-07-09] MEDS: LEVOTHYROXINE 100 MCG TABLET PO SCH (07:35)
[2020-07-09] MEDS: BISOPROLOL 5 MG TABLET PO SCH (07:36)
[2020-07-09] MEDS: IPRATROPIUM/ALBUTEROL SULFATE 1 PUFF INHALER INH SCH ×3 (07:36→21:26)
[2020-07-09] MEDS: SIMETHICONE 80 MG TAB.CHEW CHEWED SCH ×4 (07:36→21:24)
[2020-07-09] MEDS: POTASSIUM CHLORIDE 10 MEQ TABLET PO SCH (07:36)
[2020-07-09] MEDS: FUROSEMIDE 20 MG TABLET PO SCH (07:36)
[2020-07-09] MEDS: DICYCLOMINE 20 MG TABLET PO SCH ×2 (07:46→21:26)
--- NOTE | 2020-07-09 07:58 | Internal Med Progress Note ---
SUBJECTIVE Subjective Patient information: Note initiated : 07/09/20 at 7:57 am Service Date, if different from initiated Date: [] Patient: Saundra Cardona 60 y/o F admitted on 07/06/20 for SOB . Chief Complaint: [] Interval history: Presents the ED with cough and shortness of breath. States a friend visited her on Friday and was tested positive for Covid. She started getting symptoms on Friday with shortness of breath and cough. Her cough is productive of bloody sputum. Is also had diarrhea but has had this for a week. She had a hernia repair earlier in the month. In the ED she seemed to do okay on room air while resting but then quickly desatted into the high 70s with ambulation. Chest x-ray with peripheral bilateral infiltrates. Chemistry with mildly low potassium. Tested post positive for Covid in ED. She denies fevers chills headache. 07/07 Has headaches. Feeling a little better today. No diarrhea. Mild cough. Denies shortness of breath at rest. 07/08 Feeling better today. Minimal cough. Shortness of breath improving. Does feel bloated and typically takes simethicone at home. 07/09 Continues to feel better. She ambulated to the bathroom back on room air and only desatted to rate at 88% but really bounded quickly. Minimal cough minimal shortness of breath. No other pains or complaints. Review of Systems: denies headache/fever/chills/nausea/vomiting/chest or abdominal pain/diarrhea. Otherwise see above. Constitutional Vitals: Vital Signs Temp Pulse Resp BP Pulse Ox 98.5 F 62 22 130/75 94 07/09/20 06:42 07/09/20 06:42 07/09/20 06:42 07/09/20 06:42 07/09/20 06:55 Period Temp Pulse Resp BP Sys/Méndez Pulse Ox Last 24 Hr 97.0 F-98.5 F 54-92 22-26 130-155/68-92 90-98 Intake and Output 07/08/20 07/09/20 07/09/20 21:59 05:59 13:59 Intake Total 480 240 Output Total 400 515 Balance 80 -275 Weight 108.953 kg Intake & Output: Intake & Output 07/08/20 07/09/20 07/09/20 21:59 05:59 13:59 Intake Total 480 240 Output Total 400 515 Balance 80 -275 Weight 108.953 kg Intake: Oral 480 240 Output: Drainage 15 Left MARCOS Drain 5 Medial MARCOS Drain 5 Right MARCOS Drain 5 Void Amount 400 500 Other: Meal Lunch Percent of Meal Consumed 100% Feeding Ability Independent Urine Appearance Clear Clear Urine Color Bright Yellow Bright Yellow Urine Odor Normal Normal # Voids 1 Exam: General: Alert, Awake, No acute Distress. obese Eyes/N/T: EOMI, Head/Neck: neck supple, CV: RRR, No murmurs, Pulm: mild fine rales b/l much improved, no wheezing Abd: soft, nontender, +BS x4 Ext: no clubbing/cyanosis, mild b/l LE edema Neuro: Alert, no focal deficits, moves all extremities, Skin: warm/dry OBJ DATA Labs CBC & Chem 7: 07/07/20 06:20 07/08/20 05:15 Labs: Abnormal Lab Results 07/08/20 07/07/20 07/07/20 05:15 06:20 06:20 WBC RBC Hgb Hct MCHC [place] % (Auto) Lymph # (Auto) PT D-Dimer 1.94 H Potassium Carbon Dioxide BUN Glucose Calcium AST Lactate Dehydrogenase 395 H C-Reactive Protein 2.90 H 6.80 H NT-Pro-B Natriuret Pep Albumin 2.8 L Albumin/Globulin Ratio 0.8 L 07/07/20 07/07/20 07/07/20 06:20 06:20 06:20 WBC 4.2 L RBC 3.59 L Hgb 10.3 L Hct 33.5 L MCHC 30.7 L [place] % (Auto) 12.8 H Lymph # (Auto) 0.79 L PT 15.2 H D-Dimer Potassium Carbon Dioxide 21 L BUN Glucose 113 H Calcium AST 35 H Lactate Dehydrogenase 418 H C-Reactive Protein NT-Pro-B Natriuret Pep Albumin 2.9 L Albumin/Globulin Ratio 0.9 L 07/06/20 07/06/20 07/06/20 13:16 09:11 09:11 WBC RBC Hgb Hct MCHC [place] % (Auto) Lymph # (Auto) PT D-Dimer 2.29 H Potassium Carbon Dioxide BUN Glucose Calcium AST Lactate Dehydrogenase C-Reactive Protein 8.50 H NT-Pro-B Natriuret Pep 424.6 H Albumin Albumin/Globulin Ratio 01/28/21 01/28/21 09:11 09:11 WBC RBC 3.62 L Hgb 10.6 L Hct 32.9 L MCHC [place] % (Auto) Lymph # (Auto) PT D-Dimer Potassium 3.1 L Carbon Dioxide BUN 7 L Glucose Calcium 8.5 L AST 36 H Lactate Dehydrogenase C-Reactive Protein NT-Pro-B Natriuret Pep Albumin Albumin/Globulin Ratio Meds: Medications Acetaminophen (Tylenol) 650 mg PO Q6HP PRN PRN Reason: PAIN/FEVER > 101 Last Admin: 07/08/20 04:03 Dose: 650 mg Documented by: Albuterol Sulfate (Ventolin) 2 puff IH Q4HP PRN PRN Reason: Shortness Of Breath Albuterol/Ipratropium (Duoneb) 3 ml NEB Q4HP PRN PRN Reason: Shortness Of Breath Albuterol/Ipratropium (Combivent) 2 puff INH TID [facility] Last Admin: 07/09/20 07:36 Dose: 2 puff Documented by: Apixaban (Eliquis) 5 mg PO BID [facility] Last Admin: 07/09/20 07:34 Dose: 5 mg Documented by: Bisoprolol Fumarate (Zebeta) 10 mg PO DAILY [facility] Last Admin: 07/09/20 07:36 Dose: 10 mg Documented by: Buspirone HCl (Buspar) 15 mg PO TIDP PRN PRN Reason: Anxiety Cyclobenzaprine HCl (Flexeril) 10 mg PO BIDP PRN PRN Reason: Muscle Spasm Dexamethasone (Decadron) 6 mg PO DAILY [facility] Last Admin: 07/09/20 07:34 Dose: 6 mg Documented by: Dicyclomine HCl (Dicyclomine) 20 mg PO BID [facility] Last Admin: 07/09/20 07:46 Dose: 20 mg Documented by: Docusate Sodium (Colace) 100 mg PO DAILY [facility] Last Admin: 07/09/20 07:35 Dose: 100 mg Documented by: Duloxetine HCl (Cymbalta) 60 mg PO BID [facility] Last Admin: 07/09/20 07:35 Dose: 60 mg Documented by: Furosemide (Lasix) 20 mg PO QAM [facility] Last Admin: 07/09/20 07:36 Dose: 20 mg Documented by: Potassium Chloride 40 meq/ (Dextrose) 520 mls @ 130 mls/hr IV UD PRN PRN Reason: Potassium < 3 Magnesium Sulfate (Magnesium Sulfate) 2 gm in 50 mls @ 50 mls/hr IV UD PRN PRN Reason: Magnesium </= 1.6 REMDESIVIR 100 mg/ Sodium (Chloride) 250 mls @ 500 mls/hr IV DAILY [facility] Stop: 07/10/20 09:29 Last Infusion: 07/08/20 10:23 Dose: Infused Documented by: Imipramine HCl (Tofranil) 50 mg PO DAILY [facility] Last Admin: 07/09/20 07:34 Dose: 50 mg Documented by: Levothyroxine Sodium (Synthroid) 200 mcg PO ACB [facility] Last Admin: 07/09/20 07:35 Dose: 200 mcg Documented by: Petrey Carbonate (Petrey Carbonate) 300 mg PO DAILY [facility] Last Admin: 07/09/20 07:35 Dose: 300 mg Documented by: Petrey Carbonate (Petrey Carbonate) 600 mg PO HS [facility] Last Admin: 07/08/20 20:20 Dose: 600 mg Documented by: Ondansetron HCl (Zofran) 4 mg IV Q4HP PRN PRN Reason: Nausea And Vomiting Last Admin: 07/07/20 08:08 Dose: 4 mg Documented by: Oxycodone/Acetaminophen (Percocet 10-325mg) 1 tab PO Q4HP PRN; Protocol PRN Reason: Pain Pantoprazole Sodium (Protonix) 40 mg PO BIDAC [facility] Last Admin: 07/09/20 07:34 Dose: 40 mg Documented by: Budesonide- Formoterol [ Symbicort] 80-4.5 Mcg/Actuation Inhaler 1 dose INH BID [facility] Last Admin: 07/09/20 07:37 Dose: 1 dose Documented by: Polyethylene Glycol (Miralax) 17 gm PO DAILYP PRN PRN Reason: Constipation Last Admin: 07/07/20 14:02 Dose: 17 gm Documented by: Potassium Chloride (Kdur) 10 meq PO QAC [facility] Last Admin: 07/09/20 07:36 Dose: 10 meq Documented by: Potassium Chloride (Kdur) 40 meq PO UD PRN PRN Reason: Potssium is 3-3.5 Last Admin: 07/08/20 14:33 Dose: 40 meq Documented by: Potassium Chloride (Kdur) 40 meq PO UD PRN PRN Reason: Potassium < 3 Pramipexole Dihydrochloride (Mirapex) 1 mg PO BID [facility] Last Admin: 07/09/20 07:35 Dose: 1 mg Documented by: Senna (Senokot) 2 tab PO DAILYP PRN PRN Reason: Constipation Simethicone (Mylicon) 80 mg CHEWED [facility] Last Admin: 07/09/20 07:36 Dose: 80 mg Documented by: Simvastatin (Zocor) 40 mg PO [facility] Last Admin: 07/08/20 20:21 Dose: 40 mg Documented by: Sodium Chloride (Saline Flush) 10 ml IV Q8 [facility] Last Admin: 07/09/20 04:57 Dose: 10 ml Documented by: Trazodone HCl (Desyrel) 150 mg PO [facility] Last Admin: 07/08/20 20:20 Dose: 150 mg Documented by: Zinc Sulfate (Zinc) 50 mg PO DAILY [facility] Last Admin: 07/09/20 07:33 Dose: 50 mg Documented by: A/P Narrative A/P Narrative: A: *COVID Pneumonia: *Acute hypoxic respiratory failure: -on 1-3L *COPD (1-2L NC @night @home): *Hypokalemia: improved *HTN/HLD: *Depression/anxiety/bipolar: *Hypothyroidism: *GERD: *Obesity: *DC: on cpap *Diarrhea: none since admit *h/o DVT: on eliquis *Recent hernia repair: supposed to see Dr. Avila on July 11 P: -Remdesivir/Dexamethasone -O2 supp, wean -IS/Acapella, home IH's, prn nebs/RT -Stool studies if diarrhea again -cont home BB/lasix -cont home psych meds -nocturnal cpap -pt/ot -f/u with Dr. Avila -ppx: home eliquis/home ppi DNR Time Spent With Patient Time: Total time spent is greater than 50% in coordination of care (as documented) at patient's floor/unit and/or counseling patient: QUALITY Stroke Symptom Onset Unknown: No VTE Deep Vein Thrombosis/Pulmonary Embolism Present on Admission: No
--- NOTE | 2020-07-09 10:27 | Discharge Summary ---
Discharge Provider Provider Patient information: Note initiated : 07/09/20 at 10:26 am Service Date, if different from initiated Date: [] Patient: Saundra Cardona 60 y/o F admitted on 07/06/20 for SOB . Chief Complaint: [] Date of admission: 07/06/20 14:17 Discharge date: 07/10/20 Primary care physician: Amanda Chavez Consults: 07/06/20 Consult to Physician [CONS] Stat Comment: Consulting Provider: Piero Gant Reason For Exam: Physician to Consult Discharge Meds Discharge Medications Home Medications [place] Carbonate 300 mg/day PO QAM 10/06/18 [History Confirmed 07/06/20 Last Taken 07/05/20] [place] Carbonate 600 mg PO HS 10/06/18 [History Confirmed 07/06/20 Last Taken 07/05/20] albuterol sulfate 2 puff IH Q4HP PRN 10/06/18 [History Confirmed 07/06/20 Last Taken 06/16/20 16:00] bisoprolol fumarate 10 mg PO DAILY 10/06/18 [History Confirmed 07/06/20 Last Taken 07/05/20] duloxetine 60 mg PO BID 10/06/18 [History Confirmed 07/06/20 Last Taken 07/05/20] pantoprazole 40 mg PO BID 10/06/18 [History Confirmed 07/06/20 Last Taken 07/05/20] rosuvastatin 40 mg PO HS 10/06/18 [History Confirmed 07/06/20 Last Taken 07/05/20] levothyroxine 200 mcg capsule 200 mcg PO QDAY 10/19/18 [History Confirmed 07/06/20 Last Taken 07/05/20] imipramine HCl 10 mg tablet 50 mg PO DAILY tab 02/22/19 [History Confirmed 07/06/20 Last Taken 07/05/20] buspirone 7.5 mg tablet 15 mg PO TIDP tab 11/10/19 [History Confirmed 07/06/20 Last Taken 07/05/20] furosemide 20 mg tablet 20 mg PO QAM 11/10/19 [History Confirmed 07/06/20 Last Taken 07/05/20] budesonide-formoterol [Symbicort] 1 puff INHALATION BID 01/08/20 [History Confirmed 07/06/20 Last Taken 07/06/20] pramipexole 1 mg PO BID 01/08/20 [History Confirmed 07/06/20 Last Taken 07/05/20] trazodone 150 mg PO HS 01/08/20 [History Confirmed 07/06/20 Last Taken 07/05/20] cyclobenzaprine 10 mg PO BIDP PRN 06/18/20 [History Confirmed 07/06/20 Last Taken 07/05/20] dicyclomine 20 mg PO BID PRN 06/18/20 [History Confirmed 07/06/20 Last Taken 07/05/20] docusate sodium 100 mg PO BID 06/18/20 [History Confirmed 07/06/20 Last Taken 07/05/20] epinephrine 0.3 mg IM PRN PRN 06/18/20 [History Confirmed 07/06/20 Last Taken Unknown] etodolac 500 mg PO BID 06/18/20 [History Confirmed 07/06/20 Last Taken 07/05/20] oxycodone-acetaminophen [Endocet] 1 tab PO Q4H PRN #60 tab 06/24/20 [Rx Confirmed 07/06/20 Last Taken 07/05/20] cefuroxime axetil 500 mg tablet 500 mg PO BID #30 tab 07/04/20 [Rx Confirmed 07/06/20 Last Taken 07/05/20] Eliquis 5 mg PO BID 07/06/20 [History Confirmed 07/06/20 Last Taken 07/05/20] potassium chloride [Klor-Con M10] 10 meq PO DAILY 07/06/20 [History Confirmed 07/06/20 Last Taken 07/05/20] COURSE Hospital Course Hospital course: Interval history: Presents the ED with cough and shortness of breath. States a friend visited her on Friday and was tested positive for Covid. She started getting symptoms on Friday with shortness of breath and cough. Her cough is productive of bloody sputum. Is also had diarrhea but has had this for a week. She had a hernia repair earlier in the month. In the ED she seemed to do okay on room air while resting but then quickly desatted into the high 70s with ambulation. Chest x-ray with peripheral bilateral infiltrates. Chemistry with mildly low potassium. Tested post positive for Covid in ED. She denies fevers chills headache. 07/07 Has headaches. Feeling a little better today. No diarrhea. Mild cough. Denies shortness of breath at rest. 07/08 Feeling better today. Minimal cough. Shortness of breath improving. Does feel bloated and typically takes simethicone at home. 07/09 Continues to feel better. She ambulated to the bathroom back on room air and only desatted to rate at 88% but really bounded quickly. Minimal cough minimal shortness of breath. No other pains or complaints. 07/10 Doing well. On room air. Stable for discharge. A: *COVID Pneumonia: *Acute hypoxic respiratory failure: *COPD (1-2L NC @night @home): *Hypokalemia: improved *HTN/HLD: *Depression/anxiety/bipolar: *Hypothyroidism: *GERD: *Obesity: *DC: on cpap *Diarrhea: none since admit *h/o DVT: on eliquis *Recent hernia repair: supposed to see Dr. Avila on July 11 Discharge diagnosis: Covid pneumonia acute hypoxic respite failure COPD Secondary discharge diagnosis: Hypertension hyperlipidemia depression anxiety bipolar hypothyroidism GERD obesity obstructive sleep apnea history of DVT recent hernia repair Time Spent with Patient Time attestation: Total time spent providing and/or coordinating discharge services: Time spent: Greater than 30 minutes EXAM Constitutional Vitals: Temp Pulse Resp BP Pulse Ox 98.5 F 62 22 130/75 94 07/09/20 06:42 07/09/20 06:42 07/09/20 08:00 07/09/20 06:42 07/09/20 08:00 Discharge Data Data Completed and Pending Labs on day of discharge: Preliminary micro results at discharge 07/06/20 10:45 Blood Culture - Preliminary Blood Discharge Plan Patient/Caregiver Discharge Instructions Activity: increase activity as tolerated Diet: Regular Diet Activity Restrictions/Additional Instructions: Follow-up with Dr. Avila as scheduled. Prescriptions: Continued cefuroxime axetil 500 mg tablet 500 mg PO BID Qty: 30 RF: 0 levothyroxine 200 mcg capsule 200 mcg PO QDAY RF: 0 imipramine HCl 10 mg tablet 50 mg PO DAILY RF: 0 furosemide 20 mg tablet 20 mg PO QAM RF: 0 bisoprolol fumarate 5 MG tablet 10 mg PO DAILY RF: 0 pantoprazole 40 MG tablet 40 mg PO BID RF: 0 albuterol sulfate 6.7 GM HFA aerosol inhaler 2 puff IH Q4HP PRN (Reason: Shortness Of Breath) RF: 0 rosuvastatin 40 MG tablet 40 mg PO HS RF: 0 duloxetine 60 mg Capsule,Delayed Release(Dr/Ec) 60 mg PO BID RF: 0 [place] Carbonate 300 mg/day PO QAM RF: 0 [place] Carbonate 600 mg PO HS RF: 0 buspirone 7.5 mg tablet 15 mg PO TIDP RF: 0 trazodone 50 mg tablet 150 mg PO HS RF: 0 pramipexole 1 mg Tablet 1 mg PO BID RF: 0 budesonide-formoterol [Symbicort] 80-4.5 mcg/actuation Hfa Aerosol Inhaler 1 puff INHALATION BID RF: 0 dicyclomine 20 mg Tablet 20 mg PO BID PRN (Reason: Abdominal Discomfort) RF: 0 docusate sodium 100 mg Capsule 100 mg PO BID RF: 0 epinephrine 0.3 mg/0.3 mL Auto-Injector 0.3 mg IM PRN PRN (Reason: Allergic Symptoms) RF: 0 etodolac 500 mg Tablet 500 mg PO BID RF: 0 cyclobenzaprine 10 MG tablet 10 mg PO BIDP PRN (Reason: Muscle Spasm) RF: 0 oxycodone-acetaminophen [Endocet] 10-325 mg Tablet 1 tab PO Q4H PRN (Reason: Pain) Qty: 60 RF: 0 potassium chloride [Klor-Con M10] 10 mEq tablet,ER particles/crystals 10 meq PO DAILY RF: 0 Eliquis 5 mg tablet 5 mg PO BID RF: 0 Follow Up Plan Follow up with: Amanda Chavez MD [Primary Care Provider] - Patient Disposition: Home, Self-Care Prognosis: Fair Overall status at discharge: patient is progressing back to baseline QUALITY VTE Deep Vein Thrombosis/Pulmonary Embolism Present on Admission: No
[2020-07-09] MEDS: REMDESIVIR 100 MG in 0.9 % SODIUM CHLORIDE 250 ML IV SCH (10:49)
[2020-07-09] MEDS: traZODone HCL 50 MG TABLET PO SCH (21:25)
[2020-07-09] MEDS: SIMVASTATIN 40 MG TABLET PO SCH (21:25)
[2020-07-10] MEDS: 0.9 % SODIUM CHLORIDE 10 ML SYRINGE IV SCH (05:44)
[2020-07-10 07:11] LABS: ALT/SGPT 20 U/L (<40); AST/SGOT 23 U/L (<32); Albumin 3.5 gm/dL (3.2-5.2); Albumin/Globulin Ratio 0.9 (1.0-2.3); Alkaline Phosphatase 92 U/L (39-117); Bilirubin,Total 0.4 mg/dL (0.1-1.0); Blood Urea Nitrogen 16 mg/dL (8-23); Calcium 9.4 mg/dL (8.6-10.4); Carbon Dioxide 24 mmol/L (22-30); Chloride 103 mmol/L (96-108); Globulin 3.9 gm/dL (2.2-3.7); Glomerular Filtration Rate 79; Glucose 94 mg/dL (70-105)
[2020-07-10] MEDS: PANTOPRAZOLE 40 MG TABLET PO SCH (07:22)
[2020-07-10] MEDS: LEVOTHYROXINE 100 MCG TABLET PO SCH (07:22)
[2020-07-10] MEDS: REMDESIVIR 100 MG in 0.9 % SODIUM CHLORIDE 250 ML IV SCH (09:03)
[2020-07-10] MEDS: BISOPROLOL 5 MG TABLET PO SCH (09:04)
[2020-07-10] MEDS: IMIPRAMINE 25 MG TABLET PO SCH (09:04)
[2020-07-10] MEDS: PRAMIPEXOLE 1 MG TABLET PO SCH (09:05)
[2020-07-10] MEDS: ZINC SULFATE 50 MG CAPSULE PO SCH (09:05)
[2020-07-10] MEDS: DULoxetine 30 MG CAPSULE PO SCH (09:05)
[2020-07-10] MEDS: DEXAMETHASONE 4 MG TABLET PO SCH (09:05)
[2020-07-10] MEDS: FUROSEMIDE 20 MG TABLET PO SCH (09:05)
[2020-07-10] MEDS: POTASSIUM CHLORIDE 10 MEQ TABLET PO SCH (09:05)
[2020-07-10] MEDS: SIMETHICONE 80 MG TAB.CHEW CHEWED SCH ×2 (09:08→12:41)
[2020-07-10] MEDS: LITHIUM CARBONATE 150 MG CAPSULE PO SCH (09:08)
[2020-07-10] MEDS: DICYCLOMINE 20 MG TABLET PO SCH (09:08)
[2020-07-10] MEDS: APIXABAN 5 MG TABLET PO SCH (09:08)
[2020-07-10] MEDS: DOCUSATE SODIUM 100 MG CAPSULE PO SCH (09:09)
[2020-07-10] MEDS: IPRATROPIUM/ALBUTEROL SULFATE 1 PUFF INHALER INH SCH (09:09)
== END 2020-07-10 15:55 | disposition home health service (06) | DRG 177 ==
LOC: ED 08:45 → MEDSUR 14:17
PROVIDERS: ADMIT Internal Medicine; ATTEND Internal Medicine

== ENCOUNTER 2025-03-13 12:03 | Inpatient (IN) ==
[2025-03-13 12:53] LABS: Basophils # (Auto) 0.01 K/mcL (0.00-0.30); Basophils % (Auto) 0.1 % (0.0-2.0); Eosinophils # (Auto) 0.27 K/mcL (0.00-0.70); Eosinophils % (Auto) 3.3 % (0.0-7.0); Hematocrit 35.8 % (34.1-44.9); Hemoglobin 11.1 g/dL (11.2-15.7); Lymphocytes # (Auto) 2.08 K/mcL (1.50-4.80); Lymphocytes % (Auto) 25.5 % (15.5-49.0); Mean Corpuscular HGB Conc 31.0 g/dL (31.0-36.0); Monocytes # (Auto) 0.60 K/mcL (0.10-0.90); Monocytes % (Auto) 7.3 % (1.0-12.0); Neutrophils % (Auto) 63.2 % (38.0-78.0); Platelet Count 287 K/mcL (140-440); RBC 4.23 M/mcL (3.59-5.38); WBC 8.2 K/mcL (4.5-11.0)
[2025-03-13] MEDS: VANCOMYCIN 1,500 MG in 0.9 % SODIUM CHLORIDE 250 ML IV ONE (13:02)
[2025-03-13 13:08] LABS: INR 1.0 (0.9-1.1); Prothrombin Time 13.9 sec (11.9-14.5)
[2025-03-13 13:27] LABS: ALT/SGPT 24 U/L (<40); AST/SGOT 21 U/L (<32); Albumin 3.6 gm/dL (3.2-5.2); Albumin/Globulin Ratio 1.2 (1.0-2.3); Alkaline Phosphatase 122 U/L (39-117); Anion Gap 11.0 (8.0-16.0); Bilirubin,Total 0.3 mg/dL (0.1-1.0); Blood Urea Nitrogen 15 mg/dL (8-23); Calcium 9.3 mg/dL (8.6-10.4); Carbon Dioxide 24 mmol/L (22-30); Chloride 104 mmol/L (96-108); Globulin 3.0 gm/dL (2.2-3.7); Glucose 82 mg/dL (70-105); Potassium 4.1 mmol/L (3.3-5.1); Sodium 139 mmol/L (133-145)
[2025-03-13] MEDS: PIPERACILLIN SODIUM/TAZOBACTAM 3.375 GM in DEXTROSE 5% IN WATER 50 ML IV ONE (13:28)
[2025-03-13] MEDS: CLINDAMYCIN IN 0.9 % SOD CHLOR 600 MG/50 ML BAG IV ONE (13:39)
[2025-03-13] MEDS: VANCOMYCIN 1,500 MG in 0.9 % SODIUM CHLORIDE 500 ML IV SCH (13:56)
[2025-03-13 14:59] LABS: Bacteria,Urine 0 /hpf (0); Bilirubin,Urine Negative (Negative); Color,Urine Yellow; Glucose,Urine (UA) Negative (Negative); Ketones,Urine Negative (Negative); Leukocyte Esterase,Urine Negative /uL (Negative); Mucus,Urine Few /hpf; PH,Urine 5.5 (5.0-9.0); Protein,Urine Negative (Negative); Specific Gravity,Urine 1.015 (1.000-1.035); Urobilinogen,Urine Negative
[2025-03-13] MEDS ORDERED: DEXTROSE 31 GM ORAL.SUSP PO PRN (17:38)
[2025-03-13] MEDS ORDERED: ONDANSETRON 4 MG/2 ML VIAL IV PRN (17:38)
[2025-03-13] MEDS ORDERED: SENNOSIDES 1 TABLET PO PRN (17:38)
[2025-03-13] MEDS ORDERED: VANCOMYCIN PER PHARMACY IV SCH (17:38)
[2025-03-13] MEDS ORDERED: ACETAMINOPHEN 325 MG TABLET PO PRN (17:38)
[2025-03-13] MEDS ORDERED: DEXTROSE 50% 50 ML VIAL IV PRN (17:38)
[2025-03-13] MEDS: INSULIN LISPRO 1 UNIT/0.01 ML UNIT SQ SCH (18:01)
[2025-03-13] MEDS: cefTRIAXone 2 GM in DEXTROSE 5% IN WATER 50 ML IV SCH (19:42)
[2025-03-13] MEDS: cefTRIAXone 1 GM VIAL ONE (19:42)
[2025-03-13] MEDS: 0.9 % SODIUM CHLORIDE 10 ML SYRINGE IV SCH (21:32)
[2025-03-13] MEDS: IMIPRAMINE 25 MG TABLET PO SCH (21:57)
[2025-03-13] MEDS: GABAPENTIN 300 MG CAPSULE PO SCH (21:59)
[2025-03-13] MEDS: PRAMIPEXOLE 1 MG TABLET PO SCH (22:01)
[2025-03-14 05:50] LABS: Basophils # (Auto) 0.03 K/mcL (0.00-0.30); Basophils % (Auto) 0.4 % (0.0-2.0); Eosinophils # (Auto) 0.27 K/mcL (0.00-0.70); Eosinophils % (Auto) 3.6 % (0.0-7.0); Hematocrit 35.2 % (34.1-44.9); Hemoglobin 10.9 g/dL (11.2-15.7); Lymphocytes # (Auto) 1.92 K/mcL (1.50-4.80); Lymphocytes % (Auto) 25.5 % (15.5-49.0); Mean Corpuscular HGB Conc 31.0 g/dL (31.0-36.0); Monocytes # (Auto) 0.59 K/mcL (0.10-0.90); Monocytes % (Auto) 7.8 % (1.0-12.0); Neutrophils % (Auto) 62.2 % (38.0-78.0); Platelet Count 269 K/mcL (140-440); RBC 4.15 M/mcL (3.59-5.38); WBC 7.5 K/mcL (4.5-11.0)
[2025-03-14 06:07] LABS: ALT/SGPT 19 U/L (<40); AST/SGOT 18 U/L (<32); Albumin 3.5 gm/dL (3.2-5.2); Albumin/Globulin Ratio 1.1 (1.0-2.3); Alkaline Phosphatase 118 U/L (39-117); Anion Gap 12.0 (8.0-16.0); Bilirubin,Direct < 0.2 mg/dL (0-0.3); Bilirubin,Total 0.3 mg/dL (0.1-1.0); Blood Urea Nitrogen 14 mg/dL (8-23); Calcium 9.2 mg/dL (8.6-10.4); Carbon Dioxide 27 mmol/L (22-30); Chloride 104 mmol/L (96-108); Globulin 3.1 gm/dL (2.2-3.7); Glucose 101 mg/dL (70-105); Phosphorous 4.0 mg/dL (2.5-4.5); Potassium 4.2 mmol/L (3.3-5.1); Sodium 143 mmol/L (133-145); Triglycerides 115 mg/dL (<150); Uric Acid 4.9 mg/dL (2.5-8.0)
[2025-03-14 06:26] LABS: Estimated Average Glucose(eAG) 160 mg/dL; Hemoglobin A1C 7.2 % Hgb (4.0-6.0)
[2025-03-14] MEDS: ENOXAPARIN 40 MG/0.4 ML SYRINGE SQ SCH ×2 (08:19→21:19)
[2025-03-14] MEDS ORDERED: IPRATROPIUM/ALBUTEROL 3 ML AMPUL.NEB NEB PRN (08:35)
[2025-03-14] MEDS ORDERED: CYCLOBENZAPRINE 10 MG TABLET PO PRN (08:43)
[2025-03-14] MEDS ORDERED: ACETAMINOPHEN 500 MG TABLET PO PRN (08:52)
[2025-03-14] MEDS: BISOPROLOL 5 MG TABLET PO SCH (09:58)
[2025-03-14] MEDS: LEVOTHYROXINE 150 MCG TABLET PO SCH (09:58)
[2025-03-14] MEDS: buPROPion 150 MG TAB.XL.24H PO SCH (09:58)
[2025-03-14] MEDS: PRAMIPEXOLE 1 MG TABLET PO SCH (09:59)
[2025-03-14] MEDS: LISINOPRIL 5 MG TABLET PO SCH (09:59)
[2025-03-14] MEDS: ATORVASTATIN 40 MG TABLET PO SCH (10:00)
[2025-03-14] MEDS: EZETIMIBE 10 MG TABLET PO SCH (10:01)
[2025-03-14] MEDS: BUDESONIDE FORMOTEROL INH SCH (10:22)
[2025-03-14] MEDS: FLUTICASONE PROPIONATE SPRAY.NAS NS SCH (10:23)
[2025-03-14] MEDS: GABAPENTIN 300 MG CAPSULE PO SCH (10:39)
[2025-03-14] MEDS ORDERED: VANCOMYCIN 1,750 MG in 0.9 % SODIUM CHLORIDE 500 ML IV SCH (14:00)
[2025-03-14 14:59] LABS: POC Blood Urea Nitrogen 15.0 (6-20); POC CO2 23.0 (22-30); POC Calcium, Ionized 1.21 (1.16-1.32); POC Glucose, Random 84.0 (70-105)
[2025-03-14] MEDS: CARBOXYMETHYLCELLULOSE SODIUM 1 EACH DROPER.GEL OP SCH (17:02)
[2025-03-14] MEDS ORDERED: CARBOXYMETHYLCELLULOSE SODIUM 1 EACH DROPER.GEL OP SCH (21:00)
[2025-03-14] MEDS ORDERED: IMIPRAMINE 25 MG TABLET PO SCH (21:00)
[2025-03-14] MEDS ORDERED: PRAMIPEXOLE 1 MG TABLET PO SCH (21:00)
[2025-03-14] MEDS ORDERED: IMIPRAMINE 50 MG TABLET PO SCH (21:00)
[2025-03-14] MEDS: IMIPRAMINE 25 MG TABLET PO SCH (21:20)
[2025-03-15 06:44] LABS: Basophils # (Auto) 0.04 K/mcL (0.00-0.30); Basophils % (Auto) 0.5 % (0.0-2.0); Eosinophils # (Auto) 0.27 K/mcL (0.00-0.70); Eosinophils % (Auto) 3.6 % (0.0-7.0); Hematocrit 35.8 % (34.1-44.9); Hemoglobin 11.0 g/dL (11.2-15.7); Lymphocytes # (Auto) 2.21 K/mcL (1.50-4.80); Lymphocytes % (Auto) 29.2 % (15.5-49.0); Mean Corpuscular HGB Conc 30.7 g/dL (31.0-36.0); Monocytes # (Auto) 0.49 K/mcL (0.10-0.90); Monocytes % (Auto) 6.5 % (1.0-12.0); Neutrophils % (Auto) 59.4 % (38.0-78.0); Platelet Count 293 K/mcL (140-440); RBC 4.13 M/mcL (3.59-5.38); WBC 7.6 K/mcL (4.5-11.0)
[2025-03-15 06:45] LABS: ALT/SGPT 19 U/L (<40); AST/SGOT 19 U/L (<32); Albumin 3.5 gm/dL (3.2-5.2); Albumin/Globulin Ratio 1.1 (1.0-2.3); Alkaline Phosphatase 116 U/L (39-117); Anion Gap 9.0 (8.0-16.0); Bilirubin,Direct < 0.2 mg/dL (0-0.3); Bilirubin,Total 0.3 mg/dL (0.1-1.0); Blood Urea Nitrogen 12 mg/dL (8-23); Calcium 9.0 mg/dL (8.6-10.4); Carbon Dioxide 29 mmol/L (22-30); Chloride 104 mmol/L (96-108); Globulin 3.1 gm/dL (2.2-3.7); Glucose 99 mg/dL (70-105); Phosphorous 4.2 mg/dL (2.5-4.5); Potassium 4.1 mmol/L (3.3-5.1); Sodium 142 mmol/L (133-145); Triglycerides 155 mg/dL (<150); Uric Acid 5.4 mg/dL (2.5-8.0)
[2025-03-15] MEDS: LEVOTHYROXINE 100 MCG TABLET PO SCH (08:05)
[2025-03-15] MEDS: LEVOTHYROXINE 75 MCG TABLET PO SCH (08:06)
[2025-03-15] MEDS: IMIPRAMINE 25 MG TABLET PO SCH (21:12)
[2025-03-15] MEDS: EZETIMIBE 10 MG TABLET PO SCH (21:14)
[2025-03-16 07:41] LABS: Basophils # (Auto) 0.03 K/mcL (0.00-0.30); Basophils % (Auto) 0.4 % (0.0-2.0); Eosinophils # (Auto) 0.28 K/mcL (0.00-0.70); Eosinophils % (Auto) 3.5 % (0.0-7.0); Hematocrit 36.5 % (34.1-44.9); Hemoglobin 11.1 g/dL (11.2-15.7); Lymphocytes # (Auto) 2.27 K/mcL (1.50-4.80); Lymphocytes % (Auto) 28.5 % (15.5-49.0); Mean Corpuscular HGB Conc 30.4 g/dL (31.0-36.0); Monocytes # (Auto) 0.51 K/mcL (0.10-0.90); Monocytes % (Auto) 6.4 % (1.0-12.0); Neutrophils % (Auto) 60.1 % (38.0-78.0); Platelet Count 278 K/mcL (140-440); RBC 4.26 M/mcL (3.59-5.38); WBC 8.0 K/mcL (4.5-11.0)
[2025-03-16 08:10] LABS: ALT/SGPT 19 U/L (<40); AST/SGOT 20 U/L (<32); Albumin 3.5 gm/dL (3.2-5.2); Albumin/Globulin Ratio 1.2 (1.0-2.3); Alkaline Phosphatase 114 U/L (39-117); Anion Gap 8.0 (8.0-16.0); Bilirubin,Direct < 0.2 mg/dL (0-0.3); Bilirubin,Total 0.2 mg/dL (0.1-1.0); Blood Urea Nitrogen 12 mg/dL (8-23); Calcium 9.2 mg/dL (8.6-10.4); Carbon Dioxide 28 mmol/L (22-30); Chloride 104 mmol/L (96-108); Globulin 3.0 gm/dL (2.2-3.7); Glucose 95 mg/dL (70-105); Phosphorous 4.6 mg/dL (2.5-4.5); Potassium 4.1 mmol/L (3.3-5.1); Sodium 140 mmol/L (133-145); Triglycerides 166 mg/dL (<150); Uric Acid 4.9 mg/dL (2.5-8.0)
[2025-03-16] MEDS: SIMETHICONE 80 MG TAB.CHEW CHEWED ONE (10:44)
[2025-03-16 11:55] VITALS: O2SAT 97
[2025-03-16 15:32] VITALS: TEMP 97.5
== END 2025-03-16 15:35 | disposition home health service (06) | DRG 603 ==
LOC: ED 12:03 → MEDSUR 17:23
PROVIDERS: ADMIT Internal Medicine; ATTEND Internal Medicine